=== PATIENT | female | born 1955 | race Caucasian/White ===

== ENCOUNTER → 2023-09-05 10:32 | Outpatient (REF) | payer MEDICARE, SELFPAY ==
[2023-09-05 08:55] LABS: % Basophils 0.5 % (0-2); % Eosinophils 2.2 % (0-6); % Immature Granulocytes 0.2 % (0-0.5); % Lymphocytes 26.5 % (20.5-51.1); % Monocytes 8.2 % (1.7-9.3); % Neutrophils 62.4 % (42.2-75.2); Absolute Eosinophils 0.1 10^3/uL (0-0.7); Absolute Lymphocytes 1.7 10^3/uL (1.2-3.4); Absolute Monocytes 0.5 10^3/uL (0.1-0.6); Absolute Neutrophils 3.9 10^3/uL (1.4-6.5); Hematocrit 39.7 % (37.0-47.0); Hemoglobin 13.6 g/dL (12.0-16.0); Mean Corp Hgb Conc. 34.3 g/dL (33.0-37.0); Mean Corpuscular Hgb 31.2 pg (27.0-31.0); Mean Corpuscular Volume 91.1 fL (81.0-99.0); Mean Platelet Volume 9.3 fL (7.4-10.4); Nucleated Red Blood Cells % 0 %; Platelet Count 312 10^3/uL (130-400); Red Blood Cell Count 4.36 10^6/uL (4.20-5.40); Red Cell Dist. Width 14.3 % (11.5-14.5); White Blood Cell Count 6.3 10^3/uL (4.8-10.8)
[2023-09-05 09:08] LABS: ALT (SGPT) 29 U/L (0-35); AST (SGOT) 28 U/L (14-36); Albumin 3.9 g/dl (3.5-5.0); Alkaline Phosphatase 85 U/L (38-126); Blood Urea Nitrogen 10 mg/dl (7-17); Calcium 9.1 mg/dl (8.4-10.2); Carbon Dioxide 21 mmol/L (22-30); Chloride 104 mmol/L (98-107); Glucose 99 mg/dl (70-99); Iron 88 ug/dl (37-170); Potassium 3.6 mmol/L (3.5-5.1); Sodium 137 mmol/L (135-145); Total Bilirubin 0.9 mg/dl (0.2-1.3); eGFR > 60.00
[2023-09-05 09:17] LABS: Percent Saturation 38 % (20-50); Total Iron Binding Capacity 229 ug/dl (265-497)
[2023-09-06 15:33] LABS: Beta-2-Microglobulin 2.5 mg/L (<=3.0)
[2023-09-08 13:21] LABS: Albumin 4.22 g/dL (3.75-5.01); Alpha 2 Globulin 0.81 g/dL (0.48-1.05); Free Kappa Light Chains,Quant 40.35 mg/L (3.30-19.40); Free Lambda Light Chains,Quant 20.17 mg/L (5.71-26.30); IgA 225 mg/dL (68-408); IgG 823 mg/dL (768-1632); IgM 125 mg/dL (35-263); Immunofixation Electrophoresis IFE Done; Total Protein-Electrophoresis 7.1 g/dL (6.3-8.2)
== END ==
LOC: OIDL 10:32
PROVIDERS: ATTENDING PHYSICIAN Internal Medicine Hematology & Oncology
DX: D68.52 Prothrombin gene mutation (principal)
CPT/HCPCS: 80053; 82232; 82728; 82784; 83521; 83540; 83550; 84155; 84165; 85025; 86334

== ENCOUNTER → 2023-09-18 09:58 | Outpatient (REF) | payer MEDICARE, SELFPAY ==
[2023-09-18 12:13] LABS: Protein/creatinine Ratio 0.9; Urine Protein 13 mg/dl
[2023-09-18 12:29] LABS: C-Reactive Protein < 5.00 mg/L (0.0-10.00)
[2023-09-18 12:31] LABS: Calcium 9.1 mg/dl (8.4-10.2)
[2023-09-18 12:46] LABS: Vitamin D, 25-OH*** 43.8 ng/mL (30-80)
[2023-09-18 12:50] LABS: ALT (SGPT) 67 U/L (0-35); AST (SGOT) 51 U/L (14-36); Albumin 4.4 g/dl (3.5-5.0); Alkaline Phosphatase 88 U/L (38-126); Blood Urea Nitrogen 13 mg/dl (7-17); Calcium 9.2 mg/dl (8.4-10.2); Carbon Dioxide 26 mmol/L (22-30); Chloride 99 mmol/L (98-107); Glucose 84 mg/dl (70-99); Potassium 4.2 mmol/L (3.5-5.1); Sodium 136 mmol/L (135-145); Total Bilirubin 0.9 mg/dl (0.2-1.3); Total Protein 7.1 g/dl (6.3-8.2); eGFR > 60.00
[2023-09-18 12:58] LABS: Complement C3 112 mg/dl (88-165)
[2023-09-18 13:25] LABS: % Basophils 0.5 % (0-2); % Eosinophils 1.7 % (0-6); % Immature Granulocytes 0.3 % (0-0.5); % Lymphocytes 30.4 % (20.5-51.1); % Monocytes 8.3 % (1.7-9.3); % Neutrophils 58.8 % (42.2-75.2); Absolute Eosinophils 0.1 10^3/uL (0-0.7); Absolute Lymphocytes 1.8 10^3/uL (1.2-3.4); Absolute Monocytes 0.5 10^3/uL (0.1-0.6); Absolute Neutrophils 3.5 10^3/uL (1.4-6.5); Hematocrit 39.4 % (37.0-47.0); Hemoglobin 13.2 g/dL (12.0-16.0); Mean Corp Hgb Conc. 33.5 g/dL (33.0-37.0); Mean Corpuscular Hgb 31.1 pg (27.0-31.0); Mean Corpuscular Volume 92.9 fL (81.0-99.0); Mean Platelet Volume 10.4 fL (7.4-10.4); Nucleated Red Blood Cells % 0 %; Platelet Count 256 10^3/uL (130-400); Red Blood Cell Count 4.24 10^6/uL (4.20-5.40); Red Cell Dist. Width 14.1 % (11.5-14.5); White Blood Cell Count 5.9 10^3/uL (4.8-10.8)
[2023-09-19 12:13] LABS: Intact PTH 89.8 pg/ml (13.6-85.8)
== END ==
LOC: REG 09:58
PROVIDERS: ATTENDING PHYSICIAN Family Medicine; FAMILY PHYSICIAN Internal Medicine Rheumatology
DX: E83.51 Hypocalcemia (principal); R77.0 Abnormality of albumin; Z01.818 Encounter for other preprocedural examination; E55.9 Vitamin D deficiency, unspecified
CPT/HCPCS: 36415; 80053; 82306; 82570; 83970; 84156; 85025; 86140; 86160

== ENCOUNTER 2023-09-23 06:18 | Day surgery (SDC) | payer MEDICARE, SELFPAY ==
[2023-09-23 08:19] VITALS: BMI 25.7
[2023-09-23 08:20] VITALS: BMI 25.7
[2023-09-23 08:43] VITALS: BP 134/77
[2023-09-23 11:46] VITALS: BP 123/62
[2023-09-23 12:00] VITALS: BP 133/72
[2023-09-23 12:15] VITALS: BP 138/51
== END 2023-09-23 12:30 | disposition home or self-care (01) ==
LOC: SDS 06:18
PROVIDERS: ATTENDING PHYSICIAN Internal Medicine Gastroenterology
DX: D12.0 Benign neoplasm of cecum (principal); K57.30 Diverticulosis of large intestine without perforation or abscess without bleeding; K64.0 First degree hemorrhoids; Z79.01 Long term (current) use of anticoagulants
CPT/HCPCS: 45390; 88305

== ENCOUNTER → 2023-10-20 10:45 | Outpatient (REF) | payer MEDICARE, SELFPAY ==
[2023-10-20 13:23] LABS: ALT (SGPT) 24 U/L (0-35); AST (SGOT) 25 U/L (14-36); Albumin 4.1 g/dl (3.5-5.0); Alkaline Phosphatase 83 U/L (38-126); Direct Bilirubin 0.3 mg/dl (0.0-0.4); Total Bilirubin 0.6 mg/dl (0.2-1.3); Total Protein 6.6 g/dl (6.3-8.2)
== END ==
LOC: REG 10:45
PROVIDERS: ATTENDING PHYSICIAN Internal Medicine Rheumatology; FAMILY PHYSICIAN Family Medicine
DX: R76.8 Other specified abnormal immunological findings in serum (principal); R94.5 Abnormal results of liver function studies
CPT/HCPCS: 36415; 80076; 82565

== ENCOUNTER → 2023-10-22 10:20 | Outpatient (REF) | payer MEDICARE, SELFPAY ==
[2023-10-22 12:02] LABS: Urine Protein 11 mg/dl (0-12)
[2023-10-22 12:12] LABS: 24 Hour Urine Creatinine 0.831 gm/day (0.8-1.8); 24 Hour Urine Total Volume 3000 ml
[2023-10-22 13:39] LABS: Weight Kg 65.7 KG.
[2023-10-22 13:50] LABS: Serum Creatinine 0.8 mg/dl (0.7-1.5)
[2023-10-22 13:55] LABS: Creat Clear Result 74.8 ml/min (61-166); Height Cm 157.48 CM; Surface Area 1.667
== END ==
LOC: REG 10:20
PROVIDERS: ATTENDING PHYSICIAN Internal Medicine Rheumatology; FAMILY PHYSICIAN Family Medicine
DX: R76.8 Other specified abnormal immunological findings in serum (principal); R80.9 Proteinuria, unspecified; R94.5 Abnormal results of liver function studies
CPT/HCPCS: 81050; 82570; 82575; 84156

== ENCOUNTER → 2023-11-03 13:05 | Outpatient (REF) | payer MEDICARE, SELFPAY ==
[2023-11-03 14:12] LABS: Ionized Calcium 1.21 mMOL/L (1.15-1.33)
[2023-11-03 14:58] LABS: ALT (SGPT) 26 U/L (0-35); AST (SGOT) 25 U/L (14-36); Alkaline Phosphatase 82 U/L (38-126); Blood Urea Nitrogen 15 mg/dl (7-17); Calcium 9.1 mg/dl (8.4-10.2); Carbon Dioxide 26 mmol/L (22-30); Chloride 106 mmol/L (98-107); Glucose 94 mg/dl (70-99); Potassium 3.8 mmol/L (3.5-5.1); Sodium 136 mmol/L (135-145); Total Bilirubin 0.7 mg/dl (0.2-1.3); Total Protein 6.6 g/dl (6.3-8.2); eGFR > 60.00
[2023-11-03 16:16] LABS: Vitamin D, 25-OH*** 31.3 ng/mL (30-80)
[2023-11-04 08:45] LABS: Intact PTH 70.8 pg/ml (13.6-85.8)
== END ==
LOC: REG 13:05
PROVIDERS: ATTENDING PHYSICIAN Physician Assistant; FAMILY PHYSICIAN Family Medicine; REFERRING PHYSICIAN Internal Medicine Rheumatology
DX: E34.9 Endocrine disorder, unspecified (principal); E55.9 Vitamin D deficiency, unspecified
CPT/HCPCS: 36415; 80053; 82306; 82330; 83970

== ENCOUNTER → 2023-11-05 08:48 | Outpatient (REF) | payer MEDICARE, SELFPAY ==
[2023-11-05 16:04] LABS: 24 Hour Urine Total Volume 1800 ml
[2023-11-05 16:21] LABS: 24 Hour Urine Creatinine 0.577 gm/day (0.8-1.8)
[2023-11-05 16:33] LABS: 24 Hour Urine Calcium 68.4 mg/day; Urine Calcium 3.8 mg/dl
== END ==
LOC: REG 08:48
PROVIDERS: ATTENDING PHYSICIAN Physician Assistant; FAMILY PHYSICIAN Family Medicine; REFERRING PHYSICIAN Internal Medicine Rheumatology
DX: E55.9 Vitamin D deficiency, unspecified (principal)
CPT/HCPCS: 81050; 82340; 82570

== ENCOUNTER → 2024-01-12 13:15 | Outpatient (REF) | payer MEDICARE, SELFPAY | LOC: RAD 13:15 | PROVIDERS: ATTENDING PHYSICIAN Family Medicine | DX: N32.81 Overactive bladder (principal) | CPT/HCPCS: 76770 ==

== ENCOUNTER → 2024-01-20 08:04 | Outpatient (REF) | payer MEDICARE, SELFPAY ==
[2024-01-20 08:45] LABS: % Basophils 0.2 % (0-2); % Eosinophils 0.6 % (0-6); % Immature Granulocytes 0.4 % (0-0.5); % Lymphocytes 15.6 % (20.5-51.1); % Neutrophils 75.2 % (42.2-75.2); Absolute Eosinophils 0.1 10^3/uL (0-0.7); Absolute Lymphocytes 1.5 10^3/uL (1.2-3.4); Absolute Monocytes 0.8 10^3/uL (0.1-0.6); Absolute Neutrophils 7.1 10^3/uL (1.4-6.5); Hematocrit 38.4 % (37.0-47.0); Mean Corp Hgb Conc. 33.9 g/dL (33.0-37.0); Mean Corpuscular Hgb 31.7 pg (27.0-31.0); Mean Corpuscular Volume 93.7 fL (81.0-99.0); Mean Platelet Volume 9.9 fL (7.4-10.4); Nucleated Red Blood Cells % 0 %; Platelet Count 262 10^3/uL (130-400); Red Cell Dist. Width 13.2 % (11.5-14.5); White Blood Cell Count 9.4 10^3/uL (4.8-10.8)
[2024-01-20 09:28] LABS: ALT (SGPT) 13 U/L (0-35); AST (SGOT) 19 U/L (14-36); Alkaline Phosphatase 74 U/L (38-126); Blood Urea Nitrogen 17 mg/dl (7-17); Calcium 8.9 mg/dl (8.4-10.2); Carbon Dioxide 27 mmol/L (22-30); Chloride 102 mmol/L (98-107); Glucose 81 mg/dl (70-99); Potassium 3.6 mmol/L (3.5-5.1); Sodium 137 mmol/L (135-145); Total Protein 6.4 g/dl (6.3-8.2); eGFR > 60.00
[2024-01-20 09:40] LABS: Urine Protein < 5 mg/dl
[2024-01-21 23:14] LABS: Complement C3 132 mg/dl (88-165)
== END ==
LOC: REG 08:04
PROVIDERS: ATTENDING PHYSICIAN Internal Medicine Rheumatology; FAMILY PHYSICIAN Family Medicine
DX: E55.9 Vitamin D deficiency, unspecified (principal); M15.0 Primary generalized (osteo)arthritis; M35.01 Sjogren syndrome with keratoconjunctivitis; M81.0 Age-related osteoporosis without current pathological fracture; R76.8 Other specified abnormal immunological findings in serum; Z11.59 Encounter for screening for other viral diseases; Z13.820 Encounter for screening for osteoporosis; Z79.899 Other long term (current) drug therapy
CPT/HCPCS: 36415; 80053; 82570; 84156; 85025; 86140; 86160

== ENCOUNTER 2024-01-21 09:43 | Outpatient (RCR) | payer MEDICARE, SELFPAY | END 2024-01-21 23:59 | disposition home or self-care (01) | LOC: RPT 09:43 | PROVIDERS: ATTENDING PHYSICIAN Specialist; FAMILY PHYSICIAN Family Medicine | DX: R39.81 Functional urinary incontinence (principal) | CPT/HCPCS: 97110; 97161; 97530 ==

== ENCOUNTER 2024-01-23 12:35 | Inpatient (IN) | payer MEDICARE, SELFPAY ==
[2024-01-23] VITALS (11 sets, daily range): BP systolic 92–137; BP diastolic 52–69; BMI 26.2
[2024-01-23 07:23] LABS: % Basophils 0.2 % (0-2); % Eosinophils 0.1 % (0-6); % Immature Granulocytes 0.5 % (0-0.5); % Lymphocytes 7.8 % (20.5-51.1); % Monocytes 8.7 % (1.7-9.3); % Neutrophils 82.7 % (42.2-75.2); Absolute Immature Granulocytes 0.1 10^3/uL (0-0.05); Absolute Lymphocytes 1.1 10^3/uL (1.2-3.4); Absolute Monocytes 1.2 10^3/uL (0.1-0.6); Absolute Neutrophils 11.6 10^3/uL (1.4-6.5); Hematocrit 37.3 % (37.0-47.0); Hemoglobin 12.6 g/dL (12.0-16.0); Mean Corp Hgb Conc. 33.8 g/dL (33.0-37.0); Mean Corpuscular Hgb 31.5 pg (27.0-31.0); Mean Corpuscular Volume 93.3 fL (81.0-99.0); Mean Platelet Volume 9.8 fL (7.4-10.4); Nucleated Red Blood Cells % 0 %; Platelet Count 282 10^3/uL (130-400); Red Cell Dist. Width 13.2 % (11.5-14.5); White Blood Cell Count 14.1 10^3/uL (4.8-10.8)
[2024-01-23] MEDS: DILAUDID 1 MG IV ×2 (07:34→21:16)
[2024-01-23 07:39] LABS: ALT (SGPT) 14 U/L (0-35); AST (SGOT) 21 U/L (14-36); Alkaline Phosphatase 73 U/L (38-126); Blood Urea Nitrogen 19 mg/dl (7-17); Calcium 8.8 mg/dl (8.4-10.2); Carbon Dioxide 24 mmol/L (22-30); Chloride 103 mmol/L (98-107); Glucose 124 mg/dl (70-99); Sodium 138 mmol/L (135-145); Total Bilirubin 0.8 mg/dl (0.2-1.3); Total Protein 6.7 g/dl (6.3-8.2); eGFR > 60.00
[2024-01-23 07:49] LABS: NT-proBNP 333 pg/ml; Troponin I < 0.012 ng/ml
[2024-01-23 08:11] LABS: Potassium 4.1 mmol/L (3.5-5.1)
--- NOTE | 2024-01-23 08:50 | ED.GENMED ---
History of Present Illness
General
Chief Complaint: Back Pain
Source: patient
Exam Limitations: none
Time Seen by Provider: 01/23/24 07:07
Nursing documentation reviewed up to this point in time: agreed with
History of Present Illness
History of Present Illness:
68F coming in with concerns of left sided abd chest pain starting this AM. No NVD. Mild associated SOB. no fevers.
Past History
Past History
ED Past Medical History: Arrthythmia (PVC's), Asthma, GERD, Other (Pulmonary embolism, DVT, factor V Leiden deficiency , Bowel obstructions, PNA, Hiatal hernia, GI bleeding, C. Diff, anemia) and Other (Sjogren's, osteoporosis, sleep apnea)
ED Past Surgical History: Appendectomy, Bowel resection (Multiple episodes of bowel obstruction), Cholecystectomy, Gynecological (Hysterectomy Total), Orthopedic (R shoulder surgery) and Other ([place] filter)
Social History
Tobacco: Non-smoker
Alcohol: Occasional
Drug: None
Personal:
Living: with family
Employment: Employed
Family History
Family History: Other (Diabetes, coronary disease)
Review of Systems
Review of Systems
Allergies reviewed?: Yes
All Other Systems: ROS reviewed and negative except as documented in HPI and ROS
Phy Exam
Physical Exam
Physical Exam:
EXAM:
GENERAL: Well appearing in only mild distress
HEENT: Moist oral mucosa
Pulm: Left lowerlung crackles
NEUROLOGIC: Good distal strength all extremities, no coordination deficits
PSYCHIATRIC: Appropriate mental status, normal insight and judgement
EXTREMITIES: No acute abnormalities
SKIN: normal
Course
Orders/Labs/Results
Orders:
Orders
01/23/24 05:47
EKG [Electrocardiogram (*1)] Urgent
Reason for Study: Chest Pain
01/23/24 05:48
EKG- Treatment ONCE
01/23/24 06:58
Electrocardiogram (*1) Urgent
Reason for Study: Other
Other Reason for Exam: Respiratory Distress
Cardiac Monitoring- Treatment ONCE
IV Insert/Care/Rem.- Treatment PRN
CR Chest - 2 Views Urgent
Comment:
Reason For Exam: respiratory distress
O2 Therapy [RESP] Urgent
Titrate/Wean O2 to maintain O2 sat greater than (%): 93
Special Instructions: TO MAINTAIN CONTINUOUS O2 SATS >/= 93%
Pulse Ox/cont/shift [RESP] Urgent
Quantity: 1
Special Instructions: continuous pulse ox
01/23/24 07:04
Complete Blood Count/With Diff Urgent
Comprehensive Metabolic Panel Urgent
NT-proBNP Urgent
Troponin I Urgent
01/23/24 07:26
CT Chest/abd/pelvis Angio W/wo Urgent
Comment:
Reason For Exam: abd, chest, left arm pain, SOB, arm tingling
01/23/24 07:27
HYDROmorphone [Dilaudid] 1 mg IV NOW STA
01/23/24 07:38
Heparin Pf [Heparin Lock Flush] 500 unit .ROUTE .STK-MED ONE
01/23/24 10:39
Azithromycin 500 mg/250 ml [Zithromax Infusion] 500 mg in 250 ml IV NOW
Cefepime HCl [Maxipime] 2,000 mg IV NOW STA
01/23/24 10:59
Guaifenesin/Dextromethorphan [Robitussin Dm] 5 ml PO NOW STA
01/23/24 11:35
Acetaminophen [Tylenol] 1,000 mg .ROUTE .STK-MED ONE
01/23/24 11:36
Acetaminophen [Tylenol] 1,000 mg PO NOW STA
Abnormal Lab Results
01/23/24
07:04
WBC 14.1 H 10^3/uL
(4.8-10.8)
RBC 4.00 L 10^6/uL
(4.20-5.40)
MCH 31.5 H pg
(27.0-31.0)
Abs Immat Gran (auto) 0.1 H 10^3/uL
(0-0.05)
Absolute Neuts (auto) 11.6 H 10^3/uL
(1.4-6.5)
Absolute Lymphs (auto) 1.1 L 10^3/uL
(1.2-3.4)
Absolute Monos (auto) 1.2 H 10^3/uL
(0.1-0.6)
Neutrophils % 82.7 H %
(42.2-75.2)
Lymphocytes % 7.8 L %
(20.5-51.1)
BUN 19 H mg/dl
(7-17)
Glucose 124 H mg/dl
(70-99)
01/23/24 07:04
01/23/24 07:04
Vital Signs
Initial and Last Documented VS:
Initial Vital Signs
Temp BP
98.5 F 116/60
01/23/24 06:07 01/23/24 06:07
Last Documented Vital Signs
Temp Pulse Resp BP Pulse Ox
98.5 F 93 13 92/69 95
01/23/24 06:07 01/23/24 11:00 01/23/24 10:00 01/23/24 11:00 01/23/24 11:00
MDM/Problems Addressed
MDM/Problems Addressed:
68f coming to the Er with left sided abd pain starting this AM. Radiating to left chest and left arm. No reproducible pain, but adventitious lung sounds to left lower lung. CT performed to eval for dissection due to diffuse/abrupt pain. Ct
showing likely PNA. Started on IV abx. Mildly hypoxic here, put on NC. Stable in ER. Admitted for further treatment.
*Critical Care Note
Total Time (30-74mins, 75-104mins- exclusive of procedures): Not Applicable
ED Attending Note
-
Portions of this chart may have been created with voice recognition software.� Occasional wrong word or��sound alike� substitutions may have occurred due to the inherent limitations of voice recognition software.
Discharge Plan
Departure
Patient Disposition: Admit
Date of Disposition: 01/23/24
Time of Disposition: 11:04
Admit to: Telemetry
Admit to doctor: Adal
Presentation/result/management discussed w/ accepting MD/DO: Hospitalist
Patient with high blood pressure during this ER visit?: No
Condition: Good
Covid-19: Not Applicable
Discharge Problem:
Pneumonia
Prescriptions:
No Action
melatonin 5 MG tablet
10 mg PO HS
gabapentin 600 MG tablet
600 mg PO DAILY
lubiprostone 24 MCG capsule
24 mcg PO BID 0RF
Ca-D3-mag [id number]-ktw-lexie-bor [Calcium 600-D3 Plus (mag-zinc)] 1 EACH tablet
1 ea PO BID
Prolia 60 mg/mL Syringe
60 mg SC [id number] Qty: 0
levalbuterol tartrate 1 PUFF HFA aerosol inhaler
2 puff inhalation R Q4HPRN PRN (Reason: wheeze)
gabapentin 600 mg Tablet
1,200 mg PO HS
venlafaxine 150 mg Capsule,Extended Release 24hr
150 mg PO DAILY
cevimeline 30 mg Capsule
1 cap PO TID
hydroxychloroquine 200 mg Tablet
200 mg PO DAILY
cyclosporine [Restasis] 0.05 % Dropperette
1 drp BOTH EYES BID
cholecalciferol (vitamin D3) [Vitamin D3] 25 mcg (1,000 unit) Tablet
25 mcg PO DAILY
mirabegron 50 mg Tablet Extended Release 24 Hr
50 mg PO DAILY
Dupixent Syringe 300 mg/2 mL Syringe
300 mg SC Q2W
clonazepam 1 MG tablet
2 mg PO HS
bisacodyl 5 mg Tablet
5 mg PO HS
methenamine hippurate 1 GRAM tablet
1 g PO DAILY
pantoprazole 40 MG tablet,delayed release (DR/EC)
40 mg PO BID
famotidine 40 mg Tablet
40 mg PO BID
Xarelto 10 mg Tablet
10 mg PO DAILY
Referrals:
Wilma Shirley DO [Family Provider] -
Interventions
Interventions:
*Risk Screen - Suicide Last Done: 01/23/24 07:42
*Neglect/Abuse Screening Last Done: 01/23/24 07:42
ED- Fall Risk Assessment Last Done: 01/23/24 07:42
*ED COVID-19 Vaccine History Last Done: 01/23/24 07:41
ED-Musculoskeletal Assessment Last Done: 01/23/24 07:45
Discharge Date and Time
Print Language: SAMI
--- NOTE | 2024-01-23 10:33 | EDRN ---
Pt states it is ' normal ' for her to have loose/watery stools
[2024-01-23] MEDS: MAXIPIME 2000 MG IV ×2 (10:51→20:20)
[2024-01-23] MEDS: ZITHROMAX INFUSION 250 IV (10:52)
[2024-01-23] MEDS: ROBITUSSIN DM 5 ML PO (11:03)
[2024-01-23] MEDS: TYLENOL 1000 MG PO (11:36)
--- NOTE | 2024-01-23 11:48 | HPS.HSE ---
Family Physician
-
Family Physician: Wilma Shirley
Chief Complaint
-
Back pain, cough
History of Present Illness
patient is 68 years old with history of seizure, GI bleeding, hiatal hernia, GERD, small bowel obstruction, mitral valve prolapse, sleep apnea, pulm embolism/DVT status post [place] filter, factor V Leyden deficiency, PVCs, hypertension, sleep
apnea, asthma, restless leg syndrome, Sjogren's disease, osteopororosis who came to the ER with back pain, coughing.
patient was hypoxic on room air.
Initial chest x ray shows left lower lobe pneumonia, confirmed with CT chest/abdomen/pelvis.
started on Cefepime and xithromax.
Patient still with back pain, chest pain and shortness of breath.
Medical History
Past Medical History
Past Medical History: Reports Other (seizure on Wellbutrin 12 years ago, GI bleeding, hiatal hernia, GERD, small bowel obstruction, mitral valve prolapse, sleep apnea, pulm embolism/DVT status post [place] filter, factor V Leyden deficiency,
PVCs, hypertension, sleep apnea, asthma, restless leg syndrome, Sjogren's disease, osteoporo)
Past Surgical History: Reports Other ( Right rotator cuff shoulder surgery, hysterectomy, liposuction, or in general surgery, right knee surgery, elbow surgery, appendectomy, left rotator cuff repair, cholecystectomy,)
Social History
Tobacco: Non-smoker
Alcohol: Occasional
Drug: None
Family History
Family History: Other (Father with hyperlipidemia, hypertension, prostate cancer Mother with hyperlipidemia, hypertension, diabetes, breast cancer, uterine cancer,)
Allergies / Home Medications
Allergies reflects when Allergies were last updated in [facility].
Home Medications with original date entered in [facility]
Allergy/Medication List:
Allergies
Allergy/AdvReac Type Severity Reaction Status Date / Time
bupropion Allergy SEIZURE Verified 07/10/23 11:48
bupropion HCl Allergy Seizure Verified 07/10/23 11:48
[From Wellbutrin]
carbamazepine Allergy TOXICITY Verified 07/18/23 13:17
cephalexin Allergy Rash Verified 07/10/23 11:48
ciprofloxacin Allergy Rash Verified 07/10/23 11:48
codeine [Codeine] Allergy Rash Verified 07/10/23 11:48
droperidol Allergy DYSTONIA Verified 07/10/23 11:48
iron [From Venofer] Allergy Unknown Verified 07/10/23 11:48
iron sucrose complex Allergy Anaphylaxis Verified 07/10/23 11:48
[From Venofer]
meloxicam Allergy Rash Verified 07/10/23 12:20
metoclopramide Allergy Rash Verified 07/18/23 13:17
ondansetron HCl [From Zofran] Allergy Rash Verified 07/18/23 13:17
prochlorperazine Allergy Rash Verified 07/18/23 13:17
promethazine Allergy Rash Verified 07/18/23 13:17
sulfamethoxazole Allergy Itching, Verified 07/10/23 11:48
[From Bactrim] rash
tetracycline Allergy Rash Verified 07/10/23 11:48
Tetracyclines Allergy Unknown Verified 07/10/23 11:48
trimethoprim [From Bactrim] Allergy Itching, Verified 07/10/23 11:48
rash
vancomycin [Vancomycin] Allergy TEMP Verified 07/10/23 11:48
103.6F,
SEVERE
RIGORS,
TACHYCARDIA
Home Medications
melatonin 5 mg tablet 10 mg PO HS Sleep 10/11/15
gabapentin 600 mg tablet 600 mg PO BID Pain 06/26/16
lubiprostone 24 mcg capsule 24 mcg PO BID 09/17/17
Ca 600 mg-D3 20 mcg-mag oxide 50 kx-Ml-bmrhlr-manganese-boron tablet (Calcium 600-D3 Plus (mag-zinc)) 1 ea PO BID Supplement 08/06/19
Prolia 1 dose INJ .[id number] osteoporosis 11/18/19
levalbuterol tartrate 45 mcg/actuation aerosol inhaler 1 puff inhalation R Q4HPRN PRN wheeze 11/18/19
Dulcolax: 2 tab PO HS Constipation 12/08/19
cevimeline 30 mg capsule 1 cap PO TID 01/13/23
cholecalciferol (vitamin D3) 25 mcg (1,000 unit) tablet (Vitamin D3) 25 mcg PO DAILY 01/13/23
clonazepam 1 mg tablet 2 mg PO HS 01/13/23
cyclosporine 0.05 % eye drops in a dropperette (Restasis) 1 drp ophthalmic (eye) DAILY 01/13/23
dupilumab 300 mg/2 mL subcutaneous syringe (Dupixent) 300 mg SC Q2W 01/13/23
gabapentin 600 mg tablet 1,200 mg PO HS 01/13/23
hydroxychloroquine 200 mg tablet 200 mg PO DAILY 01/13/23
mirabegron 50 mg tablet,extended release 24 hr 50 mg PO DAILY 01/13/23
rivaroxaban 20 mg tablet (Xarelto) 10 mg PO Daily DVT prohphylaxis 01/13/23
venlafaxine 150 mg capsule,extended release 24 hr 150 mg PO DAILY 01/13/23
acetaminophen 500 mg tablet 1,000 mg PO Q6H PRN pain 07/10/23
bisacodyl 5 mg tablet 5 mg PO HS 07/10/23
clonazepam 1 mg tablet 1 mg PO DAILY 07/10/23
famotidine 40 mg tablet 40 mg PO BID 07/10/23
methenamine hippurate 1 gram tablet 1 g PO DAILY 07/10/23
pantoprazole 40 mg tablet,delayed release 40 mg PO BID 07/10/23
Review of Systems
-
A 12 point ROS was completed and negative except as noted: Yes
Constitutional: Reports Fatigue; Denies Fever, Weight Gain, Weight Loss or Sleep Disturbance
EENT: Denies Tearing, Sore Throat, Mouth Pain, Mouth Swelling or Runny Nose
Respiratory: Reports Cough and Trouble Breathing; Denies Hemoptysis
Cardiac: Reports Chest Pain; Denies Diaphoresis, Palpitations or Syncope
Abdomen/GI: Denies Abdominal Pain, Nausea, Vomiting, Diarrhea, Constipated, Bloody Stools or Black Stools
: Denies Dysuria, Frequency, Flank Pain, Incontinence, Difficulty Voiding, Urgency, Bleeding or Dark Urine
Musculoskeletal: Denies Joint Pain, Joint Swelling, Muscle Pain, Muscle Stiffness or Edema
Skin: Denies Itching or Rash
Neurological: Reports Weakness; Denies Dizzy, Headache or Numbness
Endocrine: Denies Polyuria, Polydipsia or Temp Intolerance
Hematologic/Lymphatic: Denies Bleeding, Swollen Glands or Bruising
Psych: Reports Calm; Denies Depression, Anxiety or Panic Disorder
Physical Exam
Vital Signs
Vital Signs
Temp Pulse Resp BP Pulse Ox
98.5 F 93 13 92/69 95
01/23/24 06:07 01/23/24 11:00 01/23/24 10:00 01/23/24 11:00 01/23/24 11:00
Physical Exam
General: Well Developed, Well Nourished, No Apparent Distress, Comfortable and Good Appetite; No Pain, Chills or Sweats
HEENT: NormoCephalic, Moist mucous membranes, Atraumatic, Good Dentition, PERRLA, Nose Appears Normal and Ears Appear Normal
Respiratory: Rales, Rhonchi and Crackles
Cardiac: S1/S2 and Regular Rhythm
Breast: Deferred by me
GI: Soft, Non Tender, Non Distended and Normal Bowel Sounds
Genito-urinary: Deferred by me
Musculoskeletal: No Clubbing, No Cyanosis and No Edema
Skin: Warm; No Rash, Jaundice, Ulcers, Lesions or Decubitus Ulcers
Neuro: Awake, Alert, Oriented, AO x 3, No Motor Deficits, Nonfocal/grossly intact and Cranial Nerves Intact
Hematologic/Lymphatic: No Lymphadenopathy
Psych: Calm
Laboratory Results
-
01/23/24 07:04
01/23/24 07:04
Laboratory Results
Total Bilirubin 0.8 mg/dl (0.2-1.3) 01/23/24 07:04
AST 21 U/L (14-36) 01/23/24 07:04
ALT 14 U/L (0-35) 01/23/24 07:04
Alkaline Phosphatase 73 U/L (38-126) 01/23/24 07:04
Troponin I < 0.012 ng/ml 01/23/24 07:04
Data Reviewed
-
Diagnostic Radiology: Report Reviewed by me
CT Scan: Report Reviewed by me
Medical Tests (Nuc Med, Echo, EKG etc): Report Reviewed by me
Lab Data: Labs Reviewed by me
Old Records: Reviewed
Impression/Plan
-
IMPRESSION:
patient is 68 years old with history of seizure, GI bleeding, hiatal hernia, GERD, small bowel obstruction, mitral valve prolapse, sleep apnea, pulm embolism/DVT status post Wilman filter, factor V Leyden deficiency, PVCs, hypertension, sleep
apnea, asthma, restless leg syndrome, Sjogren's disease, osteopororosis who came to the ER with back pain, coughing found to have pneumonia.
PLAN:
- Sever Sepsis with Acute organ dysfunction
patient meets sepsis criteria with leukocytosis and tachycardia
secondary to pneumonia
strated on Cefepime and zithromax, will continue
- Acute hypoxic respiratory faliure seconday to pneumonia
cont oxygen
wean as tolerated
Asthma
-Continue inhalers
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
-Continue Xarelto
Restless leg syndrome
-Continue gabapentin
Sjogren's disease
-Continue hydroxychloroquine
Anxiety/depression
-Continue clonazepam
-Continue venlafaxine
Full code
DVT prophylaxis�Xarelto
Regular diet
[2024-01-23] MEDS: LIDOCAINE 4% PATCH 1 PATCH TOPICAL (13:37)
--- NOTE | 2024-01-23 14:56 | PTCARENOTE ---
Patient admitted from ER into room 413-02. Vital signs stable. Oriented to room, use of call dior and television and bed controls. Reviewed plan of care with patient. Patient verbalizes understanding of all teaching and denies questions at this
time. IV fluids started as per order. Patient denies pain at this time.
[2024-01-23] MEDS: NSS 1000 IV (15:12)
[2024-01-23] MEDS: NON-FORMULARY ITEM 1 CAP PO ×2 (17:09→21:16)
[2024-01-23] MEDS: DUONEB 3 ML INH (19:59)
[2024-01-23] MEDS: STERILE WATER FOR INJECTION 10 ML IV (20:19)
[2024-01-23] MEDS: OSCAL 500 + D 500 MG PO (20:20)
[2024-01-23] MEDS: PEPCID 40 MG PO (20:20)
[2024-01-23] MEDS: RESTASIS 0.05% OPHTHALMIC EMULSION 1 DROPS BOTH EYES (20:20)
[2024-01-23] MEDS: PROTONIX 40 MG PO (20:21)
[2024-01-23] MEDS: MELATONIN 10 MG PO (21:16)
[2024-01-23] MEDS: DULCOLAX 5 MG PO (21:16)
[2024-01-23] MEDS: KLONOPIN 2 MG PO (21:16)
[2024-01-23] MEDS: NEURONTIN 1200 MG PO (21:16)
[2024-01-24] MEDS: DILAUDID 1 MG IV ×5 (00:28→21:06)
[2024-01-24] MEDS: NSS 1000 IV (02:36)
[2024-01-24] MEDS: TYLENOL 650 MG PO ×2 (03:42→20:06)
[2024-01-24 03:46] VITALS: BP 124/59
[2024-01-24 07:13] LABS: Blood Urea Nitrogen 13 mg/dl (7-17); Calcium 8.1 mg/dl (8.4-10.2); Carbon Dioxide 26 mmol/L (22-30); Chloride 109 mmol/L (98-107); Estimated Creatinine Clearance 52 ml/min; Glucose 93 mg/dl (70-99); Magnesium 1.9 mg/dl (1.6-2.3); Sodium 140 mmol/L (135-145); eGFR > 60.00
[2024-01-24 07:16] VITALS: BP 109/54
[2024-01-24 07:17] LABS: Hematocrit 32.3 % (37.0-47.0); Hemoglobin 10.7 g/dL (12.0-16.0); Mean Corp Hgb Conc. 33.1 g/dL (33.0-37.0); Mean Corpuscular Hgb 31.5 pg (27.0-31.0); Mean Platelet Volume 9.6 fL (7.4-10.4); Platelet Count 236 10^3/uL (130-400); Red Cell Dist. Width 13.7 % (11.5-14.5); White Blood Cell Count 10.1 10^3/uL (4.8-10.8)
[2024-01-24 07:25] LABS: Troponin I < 0.012 ng/ml
[2024-01-24] MEDS: LIDOCAINE 4% PATCH 1 PATCH TOPICAL (08:15)
[2024-01-24] MEDS: ZITHROMAX INFUSION 250 IV (08:15)
[2024-01-24] MEDS: XARELTO 10 MG PO (08:15)
[2024-01-24] MEDS: NEURONTIN 600 MG PO (08:16)
[2024-01-24] MEDS: PEPCID 40 MG PO ×2 (08:16→20:06)
[2024-01-24] MEDS: OSCAL 500 + D 500 MG PO ×2 (08:16→20:06)
[2024-01-24] MEDS: PLAQUENIL 200 MG PO (08:16)
[2024-01-24] MEDS: VITAMIN D3 (cholecalciferol) 25 MCG PO (08:16)
[2024-01-24] MEDS: MAXIPIME 2000 MG IV ×2 (08:16→20:05)
[2024-01-24] MEDS: PROTONIX 40 MG PO ×2 (08:16→20:05)
[2024-01-24] MEDS: EFFEXOR XR 150 MG PO (08:16)
[2024-01-24] MEDS: RESTASIS 0.05% OPHTHALMIC EMULSION 1 DROPS BOTH EYES ×2 (08:16→20:05)
[2024-01-24] MEDS: NON-FORMULARY ITEM 1 CAP PO ×3 (08:17→21:11)
[2024-01-24] MEDS: STERILE WATER FOR INJECTION 10 ML IV ×2 (08:17→20:05)
[2024-01-24] MEDS: FLUSH (NSS) 2 FLUSH IV ×2 (08:18→17:47)
[2024-01-24 11:33] VITALS: BP 108/54
[2024-01-24] MEDS: ROBITUSSIN 200 MG PO (11:47)
[2024-01-24] MEDS: FLUSH (NSS) 1 FLUSH IV (12:21)
--- NOTE | 2024-01-24 13:20 | W.PN.HOSP.TC ---
Today's Communication/Plan
-
Continue broad-spectrum antibiotic
Check urinary antigen
Pulmonary input
Sputum sample
Assessment / Plan
Assessment / Plan
IMPRESSION:
patient is 68 years old with history of seizure, GI bleeding, hiatal hernia, GERD, small bowel obstruction, mitral valve prolapse, sleep apnea, pulm embolism/DVT status post [place] filter, factor V Leyden deficiency, PVCs, hypertension, sleep
apnea, asthma, restless leg syndrome, Sjogren's disease, osteopororosis who came to the ER with back pain, coughing found to have pneumonia.
PLAN:
Sever Sepsis with Acute organ dysfunction
patient meets sepsis criteria with leukocytosis and tachycardia
secondary to pneumonia ?necrotizing
Pleuritic pain due to pneumonia
started on Cefepime and Zithromax, will continue.-Allergic to multiple medications including antibiotics. Monitor closely.
check MRSA
reaction to vancomycin
CT chest Irregular airspace consolidation within the LEFT lower lobe. Decreased enhancement within the lateral portion of this area of consolidation suspicious for pneumonia with possible necrosis. Small associated loculated pleural effusion. No
evidence for aortic dissection or acute aortic pathology. No evidence for pulmonary embolism.Patulous esophagus with small to moderate hiatal hernia.
Check strep pneum and legionella urinary antigen
sputum sample
Will pulm for input
Acute hypoxic respiratory faliure secondary to pneumonia
cont oxygen
wean as tolerated
seen on room air
Asthma
-Continue inhalers
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
-Continue Xarelto
Restless leg syndrome status post spinal stimulator
-Continue gabapentin
Sjogren's disease
-Continue hydroxychloroquine
Anxiety/depression
-Continue clonazepam
-Continue venlafaxine
Full code
DVT prophylaxis�Xarelto
Anticipated Discharge: > 48 hours
Subjective/Interval History
-
Date of Service: January 24, 2024
states of left sided chest pain
states of dry cough
no sick contact
Objective Data
-
Labs:
Laboratory Results
01/24/24
06:44
WBC 10.1
Hgb 10.7 L
Hct 32.3 L
Plt Count 236
Sodium 140
Potassium 4.0
Chloride 109 H
Carbon Dioxide 26
BUN 13
Creatinine 0.8
Glucose 93
Calcium 8.1 L
Vital Signs:
Vital Signs
Temp Pulse Resp BP Pulse Ox
99.4 F 90 18 108/54 96
01/24/24 11:33 01/24/24 11:33 01/24/24 11:33 01/24/24 11:33 01/24/24 11:33
I&O
01/23/24 01/24/24 01/25/24
06:59 06:59 06:59
Intake Total 1440 / 1440
Balance 1440 / 1440
Physical Exam
-
General: Well Developed, Well Nourished and No Apparent Distress
HEENT: Normocephalic, Atraumatic and Moist Mucous Membranes
Respiratory: Rhonchi (L>r)
Cardiac: Regular Rhythm and S1/S2
GI: Soft, Nontender, Nondistended and Normal Bowel Sounds
Musculoskeletal: No Edema and Other (rt arm in sling)
Skin: Warm
Neuro: Awake and AO x 3
Psych: Calm
Data Reviewed
-
Total Time Spent with Patient (in minutes): 55
--- NOTE | 2024-01-24 14:22 | CON.PUL ---
Consultation
Consultation Request
Date/Time Consultation Requested: 01/24/2024
Date/Time Consultation Performed: 01/24/2024
Requesting Provider: Dr. Olivares
Performing Provider: Dr. Gabe Landeros
Reason for Consultation: Pneumonia/acute respiratory insufficiency
Medical History
-
History of Present Illness:
68-year-old male with past medical history noted including GERD, hiatal hernia, prior GI bleed, prior small bowel obstruction, obstructive sleep apnea, prior pulmonary embolism with history of factor V Leiden came to the hospital complaining of back
pain, coughing and found to have infiltrates on chest x-ray. He was found to be hypoxemic as well.
Past Medical History
Past Medical History: Other (See assessment and plan section)
Social History
Tobacco: Non-smoker
Alcohol: Occasional
Drug: None
Family History
Family History: Other (Father with hyperlipidemia, hypertension, prostate cancer Mother with hyperlipidemia, hypertension, diabetes, breast cancer, uterine cancer,)
Allergies / Home Medications
Allergies
Allergy/AdvReac Type Severity Reaction Status Date / Time
bupropion Allergy SEIZURE Verified 09/23/23 08:24
bupropion HCl Allergy Seizure Verified 09/23/23 08:24
[From Wellbutrin]
carbamazepine Allergy TOXICITY Verified 09/23/23 08:24
cephalexin Allergy Rash Verified 09/23/23 08:24
ciprofloxacin Allergy Rash Verified 09/23/23 08:24
codeine [Codeine] Allergy Rash Verified 09/23/23 08:24
droperidol Allergy DYSTONIA Verified 09/23/23 08:24
iron [From Venofer] Allergy Anaphylaxis Verified 09/23/23 08:24
iron sucrose complex Allergy Anaphylaxis Verified 09/23/23 08:24
[From Venofer]
meloxicam Allergy Rash Verified 09/23/23 08:24
metaxalone Allergy Nausea / Verified 09/23/23 08:24
Vomiting
metoclopramide Allergy Rash Verified 09/23/23 08:24
ondansetron HCl [From Zofran] Allergy Rash Verified 09/23/23 08:24
prochlorperazine Allergy Rash Verified 09/23/23 08:24
promethazine Allergy Rash Verified 09/23/23 08:24
sulfamethoxazole Allergy Itching, Verified 09/23/23 08:24
[From Bactrim] rash
tetracycline Allergy Rash Verified 09/23/23 08:24
Tetracyclines Allergy Unknown Verified 09/23/23 08:24
trimethoprim [From Bactrim] Allergy Itching, Verified 09/23/23 08:24
rash
vancomycin [Vancomycin] Allergy TEMP Verified 09/23/23 08:24
103.6F,
SEVERE
RIGORS,
TACHYCARDIA
Home Medications
�Medication �Instructions �Recorded �Confirmed �Last Taken �Type
melatonin 5 mg tablet 10 mg PO HS Sleep 10/11/15 01/23/24 01/22/24 History
gabapentin 600 mg tablet 600 mg PO DAILY Pain 06/26/16 01/23/24 01/23/24 History
lubiprostone 24 mcg capsule 24 mcg PO BID 09/17/17 01/23/24 01/23/24 Rx
Ca 600 mg-D3 20 mcg-mag oxide 50 1 ea PO BID Supplement 08/06/19 01/23/24 01/23/24 History
np-Yb-ewutiz-manganese-boron
tablet (Calcium 600-D3 Plus
(mag-zinc))
denosumab 60 mg/mL subcutaneous 60 mg SC [id number] osteoporosis ##0 11/18/19 01/23/24 4 Months Ago History
syringe (Prolia) ~05/25/23
levalbuterol tartrate 45 2 puff inhalation R Q4HPRN PRN 11/18/19 01/23/24 2 Months Ago History
mcg/actuation aerosol inhaler wheeze ~07/25/23
cevimeline 30 mg capsule 1 cap PO TID XEROSTOMA 01/13/23 01/23/24 01/23/24 History
cholecalciferol (vitamin D3) 25 25 mcg PO DAILY Supplement 01/13/23 01/23/24 01/23/24 History
mcg (1,000 unit) tablet (Vitamin
D3)
clonazepam 1 mg tablet 2 mg PO HS Neurological Condition 01/13/23 01/23/24 01/22/24 History
cyclosporine 0.05 % eye drops in a 1 drp BOTH EYES BID Eye Condition 01/13/23 01/23/24 01/23/24 History
dropperette (Restasis)
dupilumab 300 mg/2 mL subcutaneous 300 mg SC Q2W Skin Issues 01/13/23 01/23/24 09/17/23 History
syringe (Dupixent)
gabapentin 600 mg tablet 1,200 mg PO HS Pain 01/13/23 01/23/24 01/22/24 History
hydroxychloroquine 200 mg tablet 200 mg PO DAILY Autoimmune Disorder 01/13/23 01/23/24 01/23/24 History
mirabegron 50 mg tablet,extended 50 mg PO DAILY Urinary Issue 01/13/23 01/23/24 01/23/24 History
release 24 hr
venlafaxine 150 mg 150 mg PO DAILY Mental 01/13/23 01/23/24 01/23/24 History
capsule,extended release 24 hr Health/Anxiety
bisacodyl 5 mg tablet 5 mg PO HS Constipation 07/10/23 01/23/24 01/22/24 History
famotidine 40 mg tablet 40 mg PO BID Gastrointestinal Issue 07/10/23 01/23/24 01/23/24 History
methenamine hippurate 1 gram tablet 1 g PO DAILY Infection 07/10/23 01/23/24 01/23/24 History
pantoprazole 40 mg tablet,delayed 40 mg PO BID Gastrointestinal Issue 07/10/23 01/23/24 01/23/24 History
release
rivaroxaban 10 mg tablet (Xarelto) 10 mg PO DAILY Blood Clot 09/23/23 01/23/24 01/23/24 History
Prevention/Tx
Review of Systems
-
History Source: Patient
All other systems: Negative unless noted
Vitals / Labs / Diagnostic Testing
Vital Signs
Temp Pulse Resp BP Pulse Ox
99.4 F 90 18 108/54 96
01/24/24 11:33 01/24/24 11:33 01/24/24 11:33 01/24/24 11:33 01/24/24 11:33
Lab Data
01/24/24 06:44
01/24/24 06:44
Diagnostic Testing:
Physical Exam
-
HEENT: Normocephalic
Cardiovascular: S1/S2
Respiratory: Non-Labored Respirations and Other (Decreased breath sounds in the left)
GI: Soft and Non Distended
Neurology: Awake, Alert, Oriented and AO x 3
Skin: Warm
General: Respiratory Distress (n)
Assessment
-
Acute respiratory insufficiency -requiring oxygen supplementation
CT chest: Show left lower lobe consolidation suggestive of pneumonia. Possible necrosis. Small loculated pleural effusion.
Moderate hiatal hernia/significant acid reflux symptoms for
Leukocytosis
Conditions present prior admission:
History of asthma
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
Sjogren syndrome
Anxiety/depression
GERD
Hiatal hernia
restless leg syndrome status post spinal stimulator.
Right subclavian PowerPort, difficult IV access per patient./
Assessment and plan:
Left lower lobe pneumonia with associated small loculated pleural effusion.Possible necrotizing component.
Patient does report significant acid reflux with her hiatal hernia-could be aspiration pneumonia complicated
-
I agree with antibiotics and assess response, depending on response may need to consider adding anaerobic coverage.
MRSA screen pending
Legionella and Streptococcus antibodies pending.
Sputum culture if able
Incentive spirometry
Acapella device
Continue oxygen supplementation, wean off as able.
Rule out aspiration, speech evaluation.
Head of the bed elevation
Antiacid reflux measures.
-
Will need radiographic follow-up in the outpatient setting.
Repeat chest x-ray depending on clinical situation to assess progression of pleural effusion.
-
History of asthma, not bronchospastic to continue inhalers.
-
DVT prophylaxis on anticoagulation.
[2024-01-24 15:06] VITALS: BP 117/61
--- NOTE | 2024-01-24 16:16 | CHAP ---
Susannah was pleasant - she asked for a prayer, which was provided, along with emotional support.
--- NOTE | 2024-01-24 16:42 | PTOTSP ---
Speech Therapy
Presentation: Patient's speech and language appeared to be WNL during informal conversations with ROD MILL OPERATOR. Patient denied any communicative deficits.
Swallowing function: Patient was observed with several bites of cracker and sips of thin liquids in which patient appeared to tolerate as she did not exhibit any overt clinical s/sx of aspiration or difficulty with mastication/ manipulation. Patient
denied any dysphagia complaints.
Recommendations:
1) Continuation of current diet (regular consistency solids and thin liquids)
2) Aspiration precautions
3) Medications as tolerated
Plan: ROD MILL OPERATOR will sign off at this time as patient appears to be at baseline.
[2024-01-24 19:55] VITALS: BP 120/58
[2024-01-24] MEDS: NEURONTIN 1200 MG PO (21:06)
[2024-01-24] MEDS: DULCOLAX 5 MG PO (21:06)
[2024-01-24] MEDS: KLONOPIN 2 MG PO (21:06)
[2024-01-24] MEDS: MIRALAX 17 GRAMS PO (21:06)
[2024-01-24] MEDS: MELATONIN 10 MG PO (21:06)
[2024-01-24 23:47] VITALS: BP 115/58
[2024-01-25] VITALS (7 sets, daily range): BP systolic 113–144; BP diastolic 56–71
[2024-01-25] MEDS: DILAUDID 1 MG IV ×5 (03:54→23:59)
[2024-01-25] MEDS: NEURONTIN 600 MG PO (07:59)
[2024-01-25] MEDS: PLAQUENIL 200 MG PO (07:59)
[2024-01-25] MEDS: PEPCID 40 MG PO ×2 (07:59→20:19)
[2024-01-25] MEDS: PROTONIX 40 MG PO ×2 (07:59→20:19)
[2024-01-25] MEDS: EFFEXOR XR 150 MG PO (07:59)
[2024-01-25] MEDS: XARELTO 10 MG PO (08:00)
[2024-01-25] MEDS: VITAMIN D3 (cholecalciferol) 25 MCG PO (08:00)
[2024-01-25] MEDS: OSCAL 500 + D 500 MG PO ×2 (08:00→20:19)
[2024-01-25] MEDS: STERILE WATER FOR INJECTION 10 ML IV ×2 (08:00→20:20)
[2024-01-25] MEDS: RESTASIS 0.05% OPHTHALMIC EMULSION 1 DROPS BOTH EYES ×2 (08:00→20:19)
[2024-01-25] MEDS: MAXIPIME 2000 MG IV ×2 (08:01→20:19)
[2024-01-25] MEDS: LIDOCAINE 4% PATCH 1 PATCH TOPICAL (08:01)
[2024-01-25] MEDS: NON-FORMULARY ITEM 1 CAP PO ×3 (08:02→21:19)
[2024-01-25] MEDS: ZITHROMAX INFUSION 250 IV (08:15)
[2024-01-25 08:35] LABS: % Basophils 0.5 % (0-2); % Eosinophils 3.1 % (0-6); % Immature Granulocytes 0.7 % (0-0.5); % Lymphocytes 16.4 % (20.5-51.1); % Monocytes 9.1 % (1.7-9.3); % Neutrophils 70.2 % (42.2-75.2); Absolute Basophils 0.1 10^3/uL (0-0.2); Absolute Eosinophils 0.3 10^3/uL (0-0.7); Absolute Immature Granulocytes 0.1 10^3/uL (0-0.05); Absolute Lymphocytes 1.8 10^3/uL (1.2-3.4); Absolute Neutrophils 7.6 10^3/uL (1.4-6.5); Hematocrit 35.1 % (37.0-47.0); Hemoglobin 11.4 g/dL (12.0-16.0); Mean Corp Hgb Conc. 32.5 g/dL (33.0-37.0); Mean Corpuscular Hgb 30.7 pg (27.0-31.0); Mean Corpuscular Volume 94.6 fL (81.0-99.0); Mean Platelet Volume 9.5 fL (7.4-10.4); Nucleated Red Blood Cells % 0 %; Platelet Count 299 10^3/uL (130-400); Red Blood Cell Count 3.71 10^6/uL (4.20-5.40); Red Cell Dist. Width 13.7 % (11.5-14.5); White Blood Cell Count 10.8 10^3/uL (4.8-10.8)
[2024-01-25 09:03] LABS: Blood Urea Nitrogen 13 mg/dl (7-17); Calcium 8.4 mg/dl (8.4-10.2); Carbon Dioxide 23 mmol/L (22-30); Chloride 107 mmol/L (98-107); Estimated Creatinine Clearance 52 ml/min; Glucose 91 mg/dl (70-99); Potassium 4.2 mmol/L (3.5-5.1); Sodium 139 mmol/L (135-145); eGFR > 60.00
--- NOTE | 2024-01-25 10:33 | W.PN.HOSP.TC ---
Today's Communication/Plan
-
cont broad spectrum abx-add anaerobes
Repeat CXR in am
pulm recs
trend cbc
Assessment / Plan
Assessment / Plan
IMPRESSION:
patient is 68 years old with history of seizure, GI bleeding, hiatal hernia, GERD, small bowel obstruction, mitral valve prolapse, sleep apnea, pulm embolism/DVT status post [place] filter, factor V Leyden deficiency, PVCs, hypertension, sleep
apnea, asthma, restless leg syndrome, Sjogren's disease, osteopororosis who came to the ER with back pain, coughing found to have pneumonia.
PLAN:
Sever Sepsis with Acute organ dysfunction likely 2/2 small loculated pleural effusion secondary to pneumonia ?necrotizing -poa
Pleuritic pain due to pneumonia
started on Cefepime and Zithromax, will continue.-Allergic to multiple medications including antibiotics. Monitor closely. Added anaerobes coverage flagyl.
wbc downtrended.
check MRSA pending
reaction to vancomycin
CT chest Irregular airspace consolidation within the LEFT lower lobe. Decreased enhancement within the lateral portion of this area of consolidation suspicious for pneumonia with possible necrosis. Small associated loculated pleural effusion. No
evidence for aortic dissection or acute aortic pathology. No evidence for pulmonary embolism.Patulous esophagus with small to moderate hiatal hernia.
strep pneum and legionella urinary antigen-Negative
sputum sample
Passed shallow eval. Spiked mild temp overnight.
Repeat CXR in am
Pulm following
Acute hypoxic respiratory insufficiency secondary to pneumonia
cont oxygen
wean as tolerated
seen on room air
Asthma
-Continue inhalers
History of factor V Leyden deficiency/ History of DVT/PE status post [place] filter
-Continue Xarelto
Restless leg syndrome status post spinal stimulator
-Continue gabapentin
Sjogren's disease
-Continue hydroxychloroquine
Anxiety/depression
-Continue clonazepam
-Continue venlafaxine
Full code
DVT prophylaxis�Xarelto
Anticipated Discharge: > 48 hours
Subjective/Interval History
-
Date of Service: January 25, 2024
remains with severe dry cough
feeling sob with exertion
Objective Data
-
Labs:
Laboratory Results
01/25/24
07:37
WBC 10.8
Hgb 11.4 L
Hct 35.1 L
Plt Count 299 D
Sodium 139
Potassium 4.2
Chloride 107
Carbon Dioxide 23
BUN 13
Creatinine 0.8
Glucose 91
Calcium 8.4
Vital Signs:
Vital Signs
Temp Pulse Resp BP Pulse Ox
98.9 F 93 16 139/65 93
01/25/24 07:18 01/25/24 07:18 01/25/24 07:18 01/25/24 07:18 01/25/24 07:18
I&O
01/24/24 01/25/24 01/26/24
06:59 06:59 06:59
Intake Total 1440 / 1440 480 / 480
Balance 1440 / 1440 480 / 480
Physical Exam
-
General: Well Developed, Well Nourished and No Apparent Distress
HEENT: Normocephalic, Atraumatic, Moist Mucous Membranes and Other (chest port noted )
Respiratory: Rhonchi (L>r)
Cardiac: Regular Rhythm and S1/S2
GI: Soft, Nontender, Nondistended and Normal Bowel Sounds
Musculoskeletal: No Edema and Other (rt arm in sling)
Skin: Warm
Neuro: Awake and AO x 3
Psych: Calm
Data Reviewed
-
Total Time Spent with Patient (in minutes): 55
[2024-01-25] MEDS: FLAGYL 500 MG 100 IV ×2 (12:12→20:19)
[2024-01-25] MEDS: TESSALON PERLES 200 MG PO (12:21)
--- NOTE | 2024-01-25 12:43 | CM ---
met with patient at bedside.patient lives with her in house with 3 jaswant,her bed and bath is on the second level..patient has a stairglide to second floor.she ambulates I,is I with her adl.sg arguelles is her pcp and she uses [facility] [address]
in [place].
past medical history:gib,hh,gerd,sbo,mvp,asthma,dvt/pe with [place]ill[place] filter
patient adm with sepsis due to pleural effusion,on iv abx,nebs,xarelto.pulm following.patient has declined a vn.plan home with no needs.
--- NOTE | 2024-01-25 13:36 | W.PN.PUL3 ---
Addendum entered and electronically signed by Gabe Hensley MD 01/25/24 14:19:
Of note, pt is on Dupixent for atopic dermatitis not for a pulmonary indication
Has ENA and wears a jaw repositioning device.
Original Note:
Today's Communication / Plan
-
Continue antibiotics
Secretion clearance intervention
Increase activity as able
Repeat chest x-ray tomorrow
Follow fever curve and leukocytosis
Assessment
-
68-year-old woman with past medical history noted, particularly acid reflux that is uncontrolled with hiatal hernia, came to the hospital complaining of back pain, coughing and patient was found to be hypoxemic. Imaging of the chest demonstrated
left lower lobe infiltrate with loculated pleural effusion.
Acute respiratory insufficiency -requiring oxygen supplementation-suspect pneumonia. Possibly aspiration.
CT chest: Show left lower lobe consolidation suggestive of pneumonia. Possible necrosis. Small loculated pleural effusion.
Moderate hiatal hernia/significant acid reflux symptoms for
Leukocytosis
Conditions present prior admission:
History of asthma
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
Sjogren syndrome
Anxiety/depression
GERD
Hiatal hernia
restless leg syndrome status post spinal stimulator.
Right subclavian PowerPort, difficult IV access per patient./
Assessment and plan:
Left lower lobe pneumonia with associated small loculated pleural effusion.Possible necrotizing component. Abnormality is new compared to CAT scan from January 13, 2023.
Patient does report significant acid reflux with her hiatal hernia-could be aspiration pneumonia /complicated
-
Leukocytosis resolved.
Fever curve improving.
-
Continue antibiotics cefepime/azithromycin and Flagyl.
MRSA screen negative.
Legionella and Streptococcus antibodies negative.
Sputum culture if able-pending
Incentive spirometry
Acapella device
Currently on room air.
-
Speech evaluation noted: No overt aspiration.
Head of the bed elevation, continue antireflux measures. Patient does report significant acid reflux symptoms.
-
Will need radiographic follow-up in the outpatient setting. Information will be left in the chart.
Repeat chest x-ray tomorrow 01/26/2024 to assess pleural effusion.
-
History of asthma, not bronchospastic to continue inhalers PRN. Not on long acting inhalers.
-
DVT prophylaxis on anticoagulation-Xarelto.
Subjective Data
-
Date of Service:
Date of Service: January 25, 2024
Chief Complaint: Pulmonary Follow Up (Left lower lobe pneumonia)
Subjective:
No new complaints
Continues to have pleuritic type chest pain.
Denies hemoptysis
Reports difficulty expectorating.
Review of Systems
General: Fever (n)
Cardiopulmonary: Dyspnea (none at rest)
GI: Abdominal Pain (n) and Nausea (n)
Neuro: Headache (n)
Objective Data
Data Reviewed
Vital Signs / I&O / Oxygen:
Vital Signs
Temp Pulse Resp BP Pulse Ox
99.5 F 101 18 123/65 93
01/25/24 11:14 01/25/24 11:14 01/25/24 11:14 01/25/24 11:14 01/25/24 11:14
Intake and Output
01/24/24 01/25/24 01/26/24
06:59 06:59 06:59
Intake Total 1440 / 1440 480 / 480
Balance 1440 / 1440 480 / 480
SaO2 93
Nasal Cannula flow liters per 2
minute
Physical Exam
General: Respiratory Distress (n) and Comfortable
HEENT: Normocephalic
Cardiovascular: S1-S2
Respiratory: Clear, Non-Labored Respirations and Other (Decreased breath sounds in the left base.)
GI: Soft and Non Distended
Neurology: Awake and Alert
Skin: Warm
Labs/Micro/Reports
Lab Data
01/25/24 07:37
01/25/24 07:37
Microbiology
01/24/24 20:17 Urine Legionella Urinary Antigen - Final
Negative for Legionella pneumophila Serogroup 1 antigen.
A negative result does not rule out the possiblity of
Legionella infection due to other serogroups or species of
Legionella. Clinical correlation is recommended.
01/24/24 20:17 Urine Streptococcus pneumoniae Antigen (M - Final
Negative for Streptococcus pneumoniae antigen.
A negative result does not exclude infection with
Streptococcus pneumoniae. Clinical correlation is
recommended.
--- NOTE | 2024-01-25 16:09 | PTCARENOTE ---
Assumed care of patient at 15:00. No changes from previous assessment. VSS. Pox: 99 % RA. Plan of care ongoing. Call dior within reach.
[2024-01-25] MEDS: FLUSH (NSS) 2 FLUSH IV (17:45)
[2024-01-25] MEDS: DULCOLAX 5 MG PO (21:19)
[2024-01-25] MEDS: NEURONTIN 1200 MG PO (21:19)
[2024-01-25] MEDS: KLONOPIN 2 MG PO (21:19)
[2024-01-25] MEDS: MELATONIN 10 MG PO (21:19)
[2024-01-26] VITALS (7 sets, daily range): BP systolic 92–123; BP diastolic 45–61
[2024-01-26] MEDS: FLAGYL 500 MG 100 IV ×3 (03:53→20:22)
[2024-01-26] MEDS: VITAMIN D3 (cholecalciferol) 25 MCG PO (07:52)
[2024-01-26] MEDS: PEPCID 40 MG PO ×2 (07:52→20:22)
[2024-01-26] MEDS: PLAQUENIL 200 MG PO (07:52)
[2024-01-26] MEDS: NEURONTIN 600 MG PO (07:52)
[2024-01-26] MEDS: XARELTO 10 MG PO (07:52)
[2024-01-26] MEDS: OSCAL 500 + D 500 MG PO ×2 (07:52→20:22)
[2024-01-26] MEDS: PROTONIX 40 MG PO ×2 (07:52→20:22)
[2024-01-26] MEDS: LIDOCAINE 4% PATCH 1 PATCH TOPICAL (07:53)
[2024-01-26] MEDS: EFFEXOR XR 150 MG PO (07:53)
[2024-01-26] MEDS: RESTASIS 0.05% OPHTHALMIC EMULSION 1 DROPS BOTH EYES ×2 (07:53→20:22)
[2024-01-26] MEDS: MAXIPIME 2000 MG IV ×2 (07:53→20:22)
[2024-01-26] MEDS: NON-FORMULARY ITEM 1 CAP PO ×3 (07:54→21:28)
[2024-01-26] MEDS: ZITHROMAX INFUSION 250 IV (07:54)
[2024-01-26] MEDS: STERILE WATER FOR INJECTION 10 ML IV ×2 (07:54→20:21)
--- NOTE | 2024-01-26 09:13 | W.PN.PUL3 ---
Today's Communication / Plan
-
CXR showing persistent L basilar effusion
Will obtain chest US to eval for thora
Sputum culture if able otherwise, continue abx IV
Encouraged OOB/PT/IS
Assessment
-
68-year-old woman with past medical history noted, particularly acid reflux that is uncontrolled with hiatal hernia, came to the hospital complaining of back pain, coughing and patient was found to be hypoxemic. Imaging of the chest demonstrated
left lower lobe infiltrate with loculated pleural effusion.
Acute respiratory insufficiency -requiring oxygen supplementation-suspect pneumonia. Possibly aspiration.
CT chest: Show left lower lobe consolidation suggestive of pneumonia. Possible necrosis. Small loculated pleural effusion.
Moderate hiatal hernia/significant acid reflux symptoms for
Leukocytosis
Conditions present prior admission:
History of asthma
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
Sjogren syndrome
Anxiety/depression
GERD
Hiatal hernia
Restless leg syndrome status post spinal stimulator.
Right subclavian PowerPort, difficult IV access per patient
Assessment and plan:
Left lower lobe pneumonia with associated small loculated pleural effusion.Possible necrotizing component.
Abnormality is new compared to CAT scan from January 13, 2023.
Patient does report significant acid reflux with her hiatal hernia-could be aspiration pneumonia /complicated
Repeat CXR this AM showing more effusion, obtain chest US to eval for thora
Leukocytosis resolved.
Fever curve improving.
Continue antibiotics cefepime/azithromycin and Flagyl.
MRSA screen negative.
Legionella and Streptococcus antibodies negative.
Sputum culture if able-pending/non productive
Incentive spirometry
Acapella device
Currently on room air.
-
Speech evaluation noted: No overt aspiration.
Head of the bed elevation, continue antireflux measures.
Patient does report significant acid reflux symptoms.
-
Will need radiographic follow-up in the outpatient setting. Information will be left in the chart.
Repeat chest x-ray tomorrow 01/26/2024 to assess pleural effusion.
-
History of asthma, not bronchospastic to continue inhalers PRN. Not on long acting inhalers.
-
DVT prophylaxis on anticoagulation-Xarelto.
Subjective Data
-
Date of Service:
Date of Service: January 26, 2024
Chief Complaint: Pulmonary Follow Up (Left lower lobe pneumonia)
Subjective:
Sleeping on my arrival, no new complaints
SOB is about the same
Objective Data
Data Reviewed
Vital Signs / I&O / Oxygen:
Vital Signs
Temp Pulse Resp BP Pulse Ox
97.9 F 91 16 119/54 93
01/26/24 07:29 01/26/24 07:29 01/26/24 07:29 01/26/24 07:29 01/26/24 07:29
Intake and Output
01/25/24 01/26/24 01/27/24
06:59 06:59 06:59
Intake Total 480 / 480 1130 / 1130
Balance 480 / 480 1130 / 1130
SaO2 93
Nasal Cannula flow liters per 2
minute
Physical Exam
General: Respiratory Distress (n) and Comfortable
HEENT: Normocephalic, Anicteric and Moist Mucous Membranes
Cardiovascular: S1-S2, Regular Rhythm and Other (PORT in place)
Respiratory: Clear, Non-Labored Respirations and Other (Decreased breath sounds in the left base.)
GI: Soft, Non Distended and Non Tender
Neurology: Awake, Alert, Oriented, AO x 3 and No Motor Deficits
Skin: Warm, Dry and Good Color
Labs/Micro/Reports
Microbiology
01/24/24 09:42 Nose MRSA Screen - Final
No Methicillin Resistant Staphylococcus aureus isolated.
01/24/24 20:17 Urine Legionella Urinary Antigen - Final
Negative for Legionella pneumophila Serogroup 1 antigen.
A negative result does not rule out the possiblity of
Legionella infection due to other serogroups or species of
Legionella. Clinical correlation is recommended.
01/24/24 20:17 Urine Streptococcus pneumoniae Antigen (M - Final
Negative for Streptococcus pneumoniae antigen.
A negative result does not exclude infection with
Streptococcus pneumoniae. Clinical correlation is
recommended.
[2024-01-26 09:25] LABS: % Basophils 0.4 % (0-2); % Eosinophils 2.7 % (0-6); % Immature Granulocytes 0.8 % (0-0.5); % Lymphocytes 8.4 % (20.5-51.1); % Monocytes 6.9 % (1.7-9.3); % Neutrophils 80.8 % (42.2-75.2); Absolute Basophils 0.1 10^3/uL (0-0.2); Absolute Eosinophils 0.3 10^3/uL (0-0.7); Absolute Immature Granulocytes 0.1 10^3/uL (0-0.05); Absolute Monocytes 0.8 10^3/uL (0.1-0.6); Absolute Neutrophils 9.6 10^3/uL (1.4-6.5); Hematocrit 34.6 % (37.0-47.0); Hemoglobin 11.7 g/dL (12.0-16.0); Mean Corp Hgb Conc. 33.8 g/dL (33.0-37.0); Mean Corpuscular Hgb 30.7 pg (27.0-31.0); Mean Corpuscular Volume 90.8 fL (81.0-99.0); Mean Platelet Volume 9.4 fL (7.4-10.4); Nucleated Red Blood Cells % 0 %; Platelet Count 292 10^3/uL (130-400); Red Blood Cell Count 3.81 10^6/uL (4.20-5.40); Red Cell Dist. Width 13.6 % (11.5-14.5); White Blood Cell Count 11.9 10^3/uL (4.8-10.8)
[2024-01-26 09:41] LABS: Blood Urea Nitrogen 12 mg/dl (7-17); Calcium 9.1 mg/dl (8.4-10.2); Carbon Dioxide 23 mmol/L (22-30); Chloride 104 mmol/L (98-107); Estimated Creatinine Clearance 46 ml/min; Glucose 119 mg/dl (70-99); Potassium 4.3 mmol/L (3.5-5.1); Sodium 138 mmol/L (135-145); eGFR > 60.00
--- NOTE | 2024-01-26 10:02 | W.PN.HOSP.TC ---
Today's Communication/Plan
-
CXR just completed
await management of port, IV team to try Heparin flush now
Assessment / Plan
Assessment / Plan
IMPRESSION:
patient is 68 years old with history of seizure, GI bleeding, hiatal hernia, GERD, small bowel obstruction, mitral valve prolapse, sleep apnea, pulm embolism/DVT status post [place] filter, factor V Leyden deficiency, PVCs, hypertension, sleep
apnea, asthma, restless leg syndrome, Sjogren's disease, osteopororosis who came to the ER with back pain, coughing found to have pneumonia.
PLAN:
Sever Sepsis with Acute organ dysfunction likely 2/2 small loculated pleural effusion secondary to pneumonia ?necrotizing -poa
Pleuritic pain due to pneumonia
started on Cefepime and Zithromax, will continue.-Allergic to multiple medications including antibiotics. Monitor closely. Added anaerobes coverage flagyl.
wbc downtrended.
14.1-->10.1-->10.8-->11.9
Neg MRSA screen
reaction to vancomycin
CT chest Irregular airspace consolidation within the LEFT lower lobe. Decreased enhancement within the lateral portion of this area of consolidation suspicious for pneumonia with possible necrosis. Small associated loculated pleural effusion. No
evidence for aortic dissection or acute aortic pathology. No evidence for pulmonary embolism.Patulous esophagus with small to moderate hiatal hernia.
strep pneum and legionella urinary antigen-Negative
sputum sample
Passed shallow eval. afebrile x 36hrs
Repeat CXR report pending
Pulm following
Acute hypoxic respiratory insufficiency secondary to pneumonia
cont oxygen
wean as tolerated
seen on room air
Asthma
-Continue inhalers
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
-Continue Xarelto
Restless leg syndrome status post spinal stimulator
-Continue gabapentin
Sjogren's disease
-Continue hydroxychloroquine
Anxiety/depression
-Continue clonazepam
-Continue venlafaxine
Port is without blood return. tPa is contraindicated in pt on Xarelto, discussed with pharm and RN
Full code
DVT prophylaxis�Xarelto
Anticipated Discharge: 24 - 48 hours
Subjective/Interval History
-
Date of Service: January 26, 2024
Awake, alert
Objective Data
-
Labs:
Laboratory Results
01/26/24
08:56
WBC 11.9 H
Hgb 11.7 L
Hct 34.6 L
Plt Count 292
Sodium 138
Potassium 4.3
Chloride 104
Carbon Dioxide 23
BUN 12
Creatinine 0.9
Glucose 119 H
Calcium 9.1
Vital Signs:
Vital Signs
Temp Pulse Resp BP Pulse Ox
97.9 F 91 16 119/54 93
01/26/24 07:29 01/26/24 07:29 01/26/24 07:29 01/26/24 07:29 01/26/24 07:29
I&O
01/25/24 01/26/24 01/27/24
06:59 06:59 06:59
Intake Total 480 / 480 1130 / 1130
Balance 480 / 480 1130 / 1130
Review of Systems
-
History Source: Patient and Coordinated Provider
Constitutional: Denies Fever
EENT: Reports No Symptoms Reported
Respiratory: Reports Cough and Trouble Breathing (better)
Cardiac: Reports No Symptoms
Abdomen/GI: Reports No Symptoms
Musculoskeletal: Reports Joint Pain (post op)
Physical Exam
-
General: Well Developed, Well Nourished and No Apparent Distress
HEENT: Normocephalic, Atraumatic, Moist Mucous Membranes and Other (chest port noted )
Respiratory: Rhonchi (markedly diminished)
Cardiac: Regular Rhythm and S1/S2
GI: Soft, Nontender, Nondistended and Normal Bowel Sounds
Musculoskeletal: No Edema and Other (rt arm in sling)
Skin: Warm
Neuro: Awake and AO x 3
Psych: Calm
[2024-01-26] MEDS: TESSALON PERLES 200 MG PO (12:16)
[2024-01-26] MEDS: DILAUDID 1 MG IV ×3 (12:20→20:37)
[2024-01-26] MEDS: CATHFLO/ACTIVASE 2 MG INTRACATH (14:27)
--- NOTE | 2024-01-26 16:18 | VATNOTE ---
positive blood return now after Activase dwell.
--- NOTE | 2024-01-26 19:13 | PTCARENOTE ---
Received patient this am AAOx3. Right CW Port had no blood return this am. IV team aware. Dr. Roldan made aware. Md had concern about ordering alteplase to de clot port secondary to pt being on Xarelto. Primary Nurse called Interventional Radiology
to discuss process when patients are on anticoagulation. Alteplase given to declot port does not go systemic. Dr. Roldan made aware. IV team administered through port. It dwelled for 1.5 hours an was successful treatment to declot port. Pt
complained of back pain. Medicated with IV Dilaudid with relief. Made patient comfortable. Cont to assess patient status.
[2024-01-26] MEDS: FLUSH (NSS) 3 FLUSH IV (20:24)
[2024-01-26] MEDS: FLUSH (NSS) 2 FLUSH IV (20:37)
[2024-01-26] MEDS: MELATONIN 10 MG PO (21:27)
[2024-01-26] MEDS: DULCOLAX 5 MG PO (21:27)
[2024-01-26] MEDS: NEURONTIN 1200 MG PO (21:27)
[2024-01-26] MEDS: KLONOPIN 2 MG PO (21:27)
[2024-01-26] MEDS: FLUSH (NSS) 1 FLUSH IV (21:41)
[2024-01-27] MEDS: DILAUDID 1 MG IV ×6 (00:57→21:17)
[2024-01-27] MEDS: FLUSH (NSS) 1 FLUSH IV ×3 (00:59→22:58)
[2024-01-27 03:15] VITALS: BP 126/61
[2024-01-27] MEDS: FLAGYL 500 MG 100 IV ×3 (04:31→21:17)
[2024-01-27] MEDS: FLUSH (NSS) 2 FLUSH IV (05:04)
[2024-01-27 05:23] LABS: % Basophils 0.6 % (0-2); % Eosinophils 4.7 % (0-6); % Immature Granulocytes 1.3 % (0-0.5); % Lymphocytes 13.9 % (20.5-51.1); % Monocytes 9.3 % (1.7-9.3); % Neutrophils 70.2 % (42.2-75.2); Absolute Basophils 0.1 10^3/uL (0-0.2); Absolute Eosinophils 0.4 10^3/uL (0-0.7); Absolute Immature Granulocytes 0.1 10^3/uL (0-0.05); Absolute Lymphocytes 1.2 10^3/uL (1.2-3.4); Absolute Monocytes 0.8 10^3/uL (0.1-0.6); Absolute Neutrophils 6.2 10^3/uL (1.4-6.5); Hematocrit 30.3 % (37.0-47.0); Mean Corpuscular Hgb 30.7 pg (27.0-31.0); Mean Corpuscular Volume 92.9 fL (81.0-99.0); Mean Platelet Volume 9.3 fL (7.4-10.4); Nucleated Red Blood Cells % 0 %; Platelet Count 300 10^3/uL (130-400); Red Blood Cell Count 3.26 10^6/uL (4.20-5.40); Red Cell Dist. Width 13.8 % (11.5-14.5); White Blood Cell Count 8.8 10^3/uL (4.8-10.8)
[2024-01-27 06:15] LABS: Blood Urea Nitrogen 13 mg/dl (7-17); Calcium 8.4 mg/dl (8.4-10.2); Carbon Dioxide 29 mmol/L (22-30); Chloride 104 mmol/L (98-107); Estimated Creatinine Clearance 46 ml/min; Glucose 90 mg/dl (70-99); Potassium 3.9 mmol/L (3.5-5.1); Sodium 138 mmol/L (135-145); eGFR > 60.00
[2024-01-27 08:07] VITALS: BP 99/56
--- NOTE | 2024-01-27 09:18 | W.PN.PUL3 ---
Today's Communication / Plan
-
Chest US reviewed, too small in my opinion to warrant tap
Can repeat CXR in AM, if showing improvement would finish course of abx
Can follow up with OP imaging in 4-6 weeks
Discharge planning per team
Assessment
-
68-year-old woman with past medical history noted, particularly acid reflux that is uncontrolled with hiatal hernia, came to the hospital complaining of back pain, coughing and patient was found to be hypoxemic. Imaging of the chest demonstrated
left lower lobe infiltrate with loculated pleural effusion.
Acute respiratory insufficiency -requiring oxygen supplementation-suspect pneumonia. Possibly aspiration.
CT chest: Show left lower lobe consolidation suggestive of pneumonia. Possible necrosis. Small loculated pleural effusion.
Moderate hiatal hernia/significant acid reflux symptoms for
Leukocytosis
Conditions present prior admission:
History of asthma
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
Sjogren syndrome
Anxiety/depression
GERD
Hiatal hernia
Restless leg syndrome status post spinal stimulator.
Right subclavian PowerPort, difficult IV access per patient
Assessment and plan:
Left lower lobe pneumonia with associated small loculated pleural effusion.Possible necrotizing component.
Abnormality is new compared to CAT scan from January 13, 2023.
Patient does report significant acid reflux with her hiatal hernia-could be aspiration pneumonia /complicated
Repeat CXR this AM showing more effusion
Chest US obtained showing small effusion on my review, not significant enough to perform thora
Reviewed with patient and she agrees
Leukocytosis resolved.
Fever curve improving.
Continue antibiotics cefepime/azithromycin and Flagyl.
MRSA screen negative.
Legionella and Streptococcus antibodies negative.
Sputum culture if able-pending/non productive
Incentive spirometry
Acapella device
Currently on room air.
-
Speech evaluation noted: No overt aspiration.
Head of the bed elevation, continue antireflux measures.
Patient does report significant acid reflux symptoms.
-
Will need radiographic follow-up in the outpatient setting. Information will be left in the chart.
Repeat chest x-ray tomorrow 01/28/2024 to assess pleural effusion.
-
History of asthma, not bronchospastic to continue inhalers PRN. Not on long acting inhalers.
-
DVT prophylaxis on anticoagulation-Xarelto.
Subjective Data
-
Date of Service:
Date of Service: January 27, 2024
Chief Complaint: Pulmonary Follow Up (Left lower lobe pneumonia)
Subjective:
doing well, remains stable on RA
no new complaints
Objective Data
Data Reviewed
Vital Signs / I&O / Oxygen:
Vital Signs
Temp Pulse Resp BP Pulse Ox
98.3 F 84 18 99/56 99
01/27/24 08:07 01/27/24 08:07 01/27/24 08:07 01/27/24 08:07 01/27/24 08:07
Intake and Output
01/26/24 01/27/24 01/28/24
06:59 06:59 06:59
Intake Total 1130 / 1130 1170 / 1170
Balance 1130 / 1130 1170 / 1170
SaO2 99
Nasal Cannula flow liters per 2
minute
Physical Exam
General: Respiratory Distress (n) and Comfortable
HEENT: Normocephalic, Anicteric and Moist Mucous Membranes
Cardiovascular: S1-S2, Regular Rhythm and Other (PORT in place)
Respiratory: Clear, Non-Labored Respirations and Other (Decreased breath sounds in the left base.)
GI: Soft, Non Distended and Non Tender
Neurology: Awake, Alert, Oriented, AO x 3 and No Motor Deficits
Skin: Warm, Dry and Good Color
Labs/Micro/Reports
Lab Data
01/27/24 04:44
07/23/24 04:44
Microbiology
01/24/24 09:42 Nose MRSA Screen - Final
No Methicillin Resistant Staphylococcus aureus isolated.
01/24/24 20:17 Urine Legionella Urinary Antigen - Final
Negative for Legionella pneumophila Serogroup 1 antigen.
A negative result does not rule out the possiblity of
Legionella infection due to other serogroups or species of
Legionella. Clinical correlation is recommended.
01/24/24 20:17 Urine Streptococcus pneumoniae Antigen (M - Final
Negative for Streptococcus pneumoniae antigen.
A negative result does not exclude infection with
Streptococcus pneumoniae. Clinical correlation is
recommended.
[2024-01-27] MEDS: ZITHROMAX INFUSION 250 IV (09:34)
[2024-01-27 09:40] VITALS: BP 110/60
[2024-01-27] MEDS: NON-FORMULARY ITEM 1 CAP PO ×3 (09:42→22:11)
[2024-01-27] MEDS: LIDOCAINE 4% PATCH 1 PATCH TOPICAL (09:43)
[2024-01-27] MEDS: MAXIPIME 2000 MG IV ×2 (09:45→21:18)
[2024-01-27] MEDS: STERILE WATER FOR INJECTION 10 ML IV ×2 (09:45→21:18)
[2024-01-27] MEDS: RESTASIS 0.05% OPHTHALMIC EMULSION 1 DROPS BOTH EYES ×2 (09:49→22:11)
[2024-01-27] MEDS: TESSALON PERLES 200 MG PO (09:50)
[2024-01-27] MEDS: PEPCID 40 MG PO ×2 (09:50→21:20)
[2024-01-27] MEDS: VITAMIN D3 (cholecalciferol) 25 MCG PO (09:50)
[2024-01-27] MEDS: OSCAL 500 + D 500 MG PO ×2 (09:50→21:19)
[2024-01-27] MEDS: XARELTO 10 MG PO (09:50)
[2024-01-27] MEDS: PROTONIX 40 MG PO ×2 (09:50→21:20)
[2024-01-27] MEDS: NEURONTIN 600 MG PO (09:51)
[2024-01-27] MEDS: PLAQUENIL 200 MG PO (09:51)
[2024-01-27] MEDS: EFFEXOR XR 150 MG PO (09:51)
--- NOTE | 2024-01-27 10:21 | CM ---
Patient seen bedside, denies any needs to CM at this time. Patient remains on IV antibiotics, watch for home IV antibiotic needs. CM will continue to follow for all needs upon discharge.
Plan; home no needs anticipated.
[2024-01-27 11:41] VITALS: BP 100/56
--- NOTE | 2024-01-27 15:04 | PN.CDI ---
CDI
- -
CDI:
Physician Documentation Request
Admit Date: 01/23/24 12:35
Dear Doctor Jamar,
Please review the following and provide your response in the progress notes.
Clinical Indicators:
Documentation in the record on 01/24/24 includes the diagnosis of severe sepsis with acute organ dysfunction. The following clinical information was noted in the record:
Pt admitted with Severe Sepsis with Acute organ dysfunction secondary to pneumonia
Pt on 2LNC to RA, LFT's and creatine within normal limits; no neurological deficits noted in chart.
Please clarify in the Progress Notes what acute organ dysfunction is present.
Sepsis only
Severe Sepsis with Acute Organ dysfunction- please specify organ
Other
Use of terms such as suspected, likely, concern for, or probable (associated with a specific diagnosis that is being evaluated, monitored, or treated as if it exists) are acceptable and can be coded in the inpatient setting, when documented at the
time of discharge.
Thank you,
Kimberley Rodas RN, BSN
CDI Specialist
Available via [place] [employer]
Please use your independent medical judgment in providing your response.
[2024-01-27 16:06] VITALS: BP 104/57
--- NOTE | 2024-01-27 17:03 | W.PN.HOSP.TC ---
Today's Communication/Plan
-
CXR tomorrow
needs to use incentive spirometry regularly
Assessment / Plan
Assessment / Plan
IMPRESSION:
patient is 68 years old with history of seizure, GI bleeding, hiatal hernia, GERD, small bowel obstruction, mitral valve prolapse, sleep apnea, pulm embolism/DVT status post [place] filter, factor V Leyden deficiency, PVCs, hypertension, sleep
apnea, asthma, restless leg syndrome, Sjogren's disease, osteopororosis who came to the ER with back pain, coughing found to have pneumonia.
PLAN:
Sepsis with associated respiratory distress
Pleuritic pain due to pneumonia
started on Cefepime and Zithromax, will continue.-Allergic to multiple medications including antibiotics. Monitor closely. Added anaerobes coverage flagyl.
wbc downtrended.
14.1-->10.1-->10.8-->11.9-->8.8
Neg MRSA screen
reaction to vancomycin
CT chest Irregular airspace consolidation within the LEFT lower lobe. Decreased enhancement within the lateral portion of this area of consolidation suspicious for pneumonia with possible necrosis. Small associated loculated pleural effusion. No
evidence for aortic dissection or acute aortic pathology. No evidence for pulmonary embolism.Patulous esophagus with small to moderate hiatal hernia.
strep pneum and legionella urinary antigen-Negative
sputum sample
Passed shallow eval. afebrile x 36hrs
Repeat 01/25 CXR: Small left pleural effusion with associated atelectasis and/or pneumonia, slightly improved.
Pulm following, requesting CXR tomorrow
Acute hypoxic respiratory insufficiency secondary to pneumonia
seen on room air
rm air 95%
Asthma
-Continue inhalers
History of factor V Leyden deficiency/ History of DVT/PE status post [place] filter
-Continue Xarelto
Restless leg syndrome status post spinal stimulator
-Continue gabapentin
Sjogren's disease
-Continue hydroxychloroquine
Anxiety/depression
-Continue clonazepam
-Continue venlafaxine
Port on 01/25 was without blood return. pt received tPa to allow blood return
Full code
DVT prophylaxis�Xarelto
Anticipated Discharge: 24 - 48 hours
Subjective/Interval History
-
Date of Service: January 27, 2024
generally feels better
Objective Data
-
Labs:
Laboratory Results
01/27/24
04:44
WBC 8.8
Hgb 10.0 L
Hct 30.3 L
Plt Count 300
Sodium 138
Potassium 3.9
Chloride 104
Carbon Dioxide 29
BUN 13
Creatinine 0.9
Glucose 90
Calcium 8.4
Vital Signs:
Vital Signs
Temp Pulse Resp BP Pulse Ox
98.4 F 87 18 104/57 95
01/27/24 16:06 01/27/24 16:06 01/27/24 16:06 01/27/24 16:06 01/27/24 16:06
I&O
01/26/24 01/27/24 01/28/24
06:59 06:59 06:59
Intake Total 1130 / 1130 1170 / 1170
Balance 1130 / 1130 1170 / 1170
Review of Systems
-
History Source: Patient and Coordinated Provider
Constitutional: Denies Fever
EENT: Reports No Symptoms Reported
Respiratory: Reports Cough and Trouble Breathing (better)
Cardiac: Reports No Symptoms
Abdomen/GI: Reports No Symptoms
Musculoskeletal: Reports Joint Pain (post op)
Physical Exam
-
General: Well Developed, Well Nourished and No Apparent Distress
HEENT: Normocephalic, Atraumatic, Moist Mucous Membranes and Other (chest port noted )
Respiratory: Rhonchi (markedly diminished, bibasilar)
Cardiac: Regular Rhythm and S1/S2
GI: Soft, Nontender, Nondistended and Normal Bowel Sounds
Musculoskeletal: No Edema and Other (rt arm in sling)
Skin: Warm
Neuro: Awake and AO x 3
Psych: Calm
[2024-01-27] MEDS: KLONOPIN 2 MG PO (22:11)
[2024-01-27] MEDS: DULCOLAX 5 MG PO (22:11)
[2024-01-27] MEDS: MELATONIN 10 MG PO (22:11)
[2024-01-27] MEDS: NEURONTIN 1200 MG PO (22:12)
[2024-01-28 00:04] VITALS: BP 132/69
[2024-01-28] MEDS: DILAUDID 1 MG IV ×3 (01:16→12:44)
[2024-01-28] MEDS: FLAGYL 500 MG 100 IV ×3 (04:54→21:55)
[2024-01-28 08:22] VITALS: BP 126/57
--- NOTE | 2024-01-28 09:18 | W.PN.PUL3 ---
Today's Communication / Plan
-
ABx continued but CXR remains the same
IR consult for thora, labs are ordered
Bowel regiment per primary team
Assessment
-
68-year-old woman with past medical history noted, particularly acid reflux that is uncontrolled with hiatal hernia, came to the hospital complaining of back pain, coughing and patient was found to be hypoxemic. Imaging of the chest demonstrated
left lower lobe infiltrate with loculated pleural effusion.
Acute respiratory insufficiency -requiring oxygen supplementation-suspect pneumonia. Possibly aspiration.
CT chest: Show left lower lobe consolidation suggestive of pneumonia. Possible necrosis. Small loculated pleural effusion.
Moderate hiatal hernia/significant acid reflux symptoms for
Leukocytosis
Conditions present prior admission:
History of asthma
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
Sjogren syndrome
Anxiety/depression
GERD
Hiatal hernia
Restless leg syndrome status post spinal stimulator.
Right subclavian PowerPort, difficult IV access per patient
Assessment and plan:
Left lower lobe pneumonia with associated small loculated pleural effusion.Possible necrotizing component.
Abnormality is new compared to CAT scan from January 13, 2023.
Patient does report significant acid reflux with her hiatal hernia-could be aspiration pneumonia /complicated
Repeat CXR this AM showing more effusion
Chest US obtained showing small effusion on my review, but repeat CXR showing worsening effusion
IR consult for marciel gonzalez
Ordered pleural studies
Leukocytosis resolved.
Fever curve improving.
Continue antibiotics cefepime/azithromycin and Flagyl.
MRSA screen negative.
Legionella and Streptococcus antibodies negative.
Sputum culture if able-pending/non productive
Incentive spirometry
Acapella device
Currently on room air.
-
Speech evaluation noted: No overt aspiration.
Head of the bed elevation, continue antireflux measures.
Patient does report significant acid reflux symptoms.
Has not had BM
Primary team to add regiment
-
Will need radiographic follow-up in the outpatient setting. Information will be left in the chart.
Repeat chest x-ray tomorrow 01/28/2024 to assess pleural effusion.
-
History of asthma, not bronchospastic to continue inhalers PRN. Not on long acting inhalers.
-
DVT prophylaxis on anticoagulation-Xarelto.
Subjective Data
-
Date of Service:
Date of Service: January 28, 2024
Chief Complaint: Pulmonary Follow Up (Left lower lobe pneumonia)
Subjective:
remains stable on RA
no new complaints
has not had BMs
Objective Data
Data Reviewed
Vital Signs / I&O / Oxygen:
Vital Signs
Temp Pulse Resp BP Pulse Ox
97.5 F 89 18 126/57 98
01/28/24 08:22 01/28/24 08:22 01/28/24 08:22 01/28/24 08:22 01/28/24 08:22
Intake and Output
01/27/24 01/28/24 01/29/24
06:59 06:59 06:59
Intake Total 1170 / 1170 19190
Balance 1170 / 1170 1919 / 1920
SaO2 98
Nasal Cannula flow liters per 2
minute
Physical Exam
General: Respiratory Distress (n) and Comfortable
HEENT: Normocephalic, Anicteric and Moist Mucous Membranes
Cardiovascular: S1-S2, Regular Rhythm and Other (PORT in place)
Respiratory: Clear, Non-Labored Respirations and Other (Decreased breath sounds in the left base.)
GI: Soft, Non Distended and Non Tender
Neurology: Awake, Alert, Oriented, AO x 3 and No Motor Deficits
Skin: Warm, Dry and Good Color
Labs/Micro/Reports
Lab Data
01/27/24 04:44
01/27/24 04:44
Microbiology
01/24/24 09:42 Nose MRSA Screen - Final
No Methicillin Resistant Staphylococcus aureus isolated.
01/24/24 20:17 Urine Legionella Urinary Antigen - Final
Negative for Legionella pneumophila Serogroup 1 antigen.
A negative result does not rule out the possiblity of
Legionella infection due to other serogroups or species of
Legionella. Clinical correlation is recommended.
01/24/24 20:17 Urine Streptococcus pneumoniae Antigen (M - Final
Negative for Streptococcus pneumoniae antigen.
A negative result does not exclude infection with
Streptococcus pneumoniae. Clinical correlation is
recommended.
[2024-01-28] MEDS: RESTASIS 0.05% OPHTHALMIC EMULSION 1 DROPS BOTH EYES ×2 (09:48→21:55)
[2024-01-28] MEDS: ZITHROMAX INFUSION 250 IV (09:48)
[2024-01-28] MEDS: MAXIPIME 2000 MG IV ×2 (09:49→21:55)
[2024-01-28] MEDS: PROTONIX 40 MG PO ×2 (09:49→21:56)
[2024-01-28] MEDS: VITAMIN D3 (cholecalciferol) 25 MCG PO (09:49)
[2024-01-28] MEDS: STERILE WATER FOR INJECTION 10 ML IV ×2 (09:49→21:55)
[2024-01-28] MEDS: NEURONTIN 600 MG PO (09:49)
[2024-01-28] MEDS: LIDOCAINE 4% PATCH TOPICAL (09:50)
[2024-01-28] MEDS: ULTRAM 50 MG PO ×3 (09:50→22:11)
[2024-01-28] MEDS: PLAQUENIL 200 MG PO (09:50)
[2024-01-28] MEDS: PEPCID 40 MG PO ×2 (09:50→21:56)
[2024-01-28] MEDS: OSCAL 500 + D 500 MG PO ×2 (09:50→21:56)
[2024-01-28] MEDS: XARELTO 10 MG PO (09:50)
[2024-01-28] MEDS: EFFEXOR XR 150 MG PO (09:50)
[2024-01-28] MEDS: NON-FORMULARY ITEM 1 CAP PO ×3 (09:51→21:57)
[2024-01-28 14:40] VITALS: BP 111/52; BP_SYST 88
--- NOTE | 2024-01-28 15:11 | CM ---
Patient off floor, CM reviewed chart. Patient remains on IV antibiotics. CM will continue to follow for all discharge planning needs.
Plan; home no needs, watch for home IV antibiotic needs upon discharge.
--- NOTE | 2024-01-28 15:13 | W.PN.HOSP.TC ---
Today's Communication/Plan
-
consideration for thoracentesis
will add Colace/MOM
Assessment / Plan
Assessment / Plan
IMPRESSION:
patient is 68 years old with history of seizure, GI bleeding, hiatal hernia, GERD, small bowel obstruction, mitral valve prolapse, sleep apnea, pulm embolism/DVT status post [place] filter, factor V Leyden deficiency, PVCs, hypertension, sleep
apnea, asthma, restless leg syndrome, Sjogren's disease, osteopororosis who came to the ER with back pain, coughing found to have pneumonia.
PLAN:
Sepsis with associated respiratory distress
Pleuritic pain due to pneumonia
started on Cefepime and Zithromax (received 5 doses of Azithromycin, will stop) will continue.-Allergic to multiple medications including antibiotics. Monitor closely. Added anaerobes coverage flagyl.
wbc downtrended.
14.1-->10.1-->10.8-->11.9-->8.8
Neg MRSA screen
reaction to vancomycin
CT chest Irregular airspace consolidation within the LEFT lower lobe. Decreased enhancement within the lateral portion of this area of consolidation suspicious for pneumonia with possible necrosis. Small associated loculated pleural effusion. No
evidence for aortic dissection or acute aortic pathology. No evidence for pulmonary embolism.Patulous esophagus with small to moderate hiatal hernia.
strep pneum and legionella urinary antigen-Negative
sputum sample
Passed shallow eval. afebrile x 36hrs
Repeat 01/25 CXR: Small left pleural effusion with associated atelectasis and/or pneumonia, slightly improved.
01/27: Slight interval increase in size of a small left pleural effusion.
Pulm following, discussed with Dr. Segura
Acute hypoxic respiratory insufficiency secondary to pneumonia
seen on room air
rm air 95%
Asthma
-Continue inhalers
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
-Continue Xarelto
Restless leg syndrome status post spinal stimulator
-Continue gabapentin
Sjogren's disease
-Continue hydroxychloroquine
Anxiety/depression
-Continue clonazepam
-Continue venlafaxine
constipation: pt on Amitiza 24 mcg bid
will add Colace and prn MOM
Port on 01/25 was without blood return. pt received tPa to allow blood return
Full code
DVT prophylaxis�Xarelto
Anticipated Discharge: 24 - 48 hours
Subjective/Interval History
-
Date of Service: January 28, 2024
Her main complaint currently is constipation
Objective Data
-
Vital Signs:
Vital Signs
Temp Pulse Resp BP Pulse Ox
97.5 F 88 20 111/52 95
01/28/24 14:40 01/28/24 14:40 01/28/24 14:40 01/28/24 14:40 01/28/24 14:40
I&O
01/27/24 01/28/24 01/29/24
06:59 06:59 06:59
Intake Total 1170 / 1170 1919
Balance 1170 / 1170 1919
Review of Systems
-
History Source: Patient and Coordinated Provider
Constitutional: Denies Fever
EENT: Reports No Symptoms Reported
Respiratory: Reports Cough and Trouble Breathing (better)
Cardiac: Reports No Symptoms
Abdomen/GI: Reports No Symptoms
Musculoskeletal: Reports Joint Pain (post op)
Physical Exam
-
General: Well Developed, Well Nourished and No Apparent Distress
HEENT: Normocephalic, Atraumatic, Moist Mucous Membranes and Other (chest port noted )
Respiratory: Rhonchi (markedly diminished, bibasilar, moving air better)
Cardiac: Regular Rhythm and S1/S2
GI: Soft, Nontender, Nondistended and Normal Bowel Sounds
Musculoskeletal: No Edema
Skin: Warm
Neuro: Awake and AO x 3
Psych: Calm
[2024-01-28 15:35] VITALS: BP 120/69
[2024-01-28] MEDS: COLACE 100 MG PO (21:55)
[2024-01-28] MEDS: DULCOLAX 5 MG PO (21:57)
[2024-01-28] MEDS: MELATONIN 10 MG PO (21:57)
[2024-01-28] MEDS: KLONOPIN 2 MG PO (21:57)
[2024-01-28] MEDS: NEURONTIN 1200 MG PO (21:57)
[2024-01-28 23:30] VITALS: BP 99/60
[2024-01-29] MEDS: FLAGYL 500 MG 100 IV ×2 (04:11→12:51)
[2024-01-29 07:30] VITALS: BP 118/67
[2024-01-29 08:13] LABS: % Basophils 0.8 % (0-2); % Immature Granulocytes 1.6 % (0-0.5); % Lymphocytes 15.5 % (20.5-51.1); % Monocytes 7.6 % (1.7-9.3); % Neutrophils 68.5 % (42.2-75.2); Absolute Basophils 0.1 10^3/uL (0-0.2); Absolute Eosinophils 0.5 10^3/uL (0-0.7); Absolute Immature Granulocytes 0.1 10^3/uL (0-0.05); Absolute Lymphocytes 1.4 10^3/uL (1.2-3.4); Absolute Monocytes 0.7 10^3/uL (0.1-0.6); Absolute Neutrophils 6.1 10^3/uL (1.4-6.5); Hematocrit 36.2 % (37.0-47.0); Hemoglobin 11.9 g/dL (12.0-16.0); Mean Corp Hgb Conc. 32.9 g/dL (33.0-37.0); Mean Corpuscular Hgb 31.3 pg (27.0-31.0); Mean Corpuscular Volume 95.3 fL (81.0-99.0); Mean Platelet Volume 9.1 fL (7.4-10.4); Nucleated Red Blood Cells % 0 %; Platelet Count 369 10^3/uL (130-400); Red Cell Dist. Width 13.6 % (11.5-14.5); White Blood Cell Count 8.9 10^3/uL (4.8-10.8)
[2024-01-29 08:40] VITALS: BP 118/67
--- NOTE | 2024-01-29 09:13 | W.PN.PUL3 ---
Today's Communication / Plan
-
Thora attempted but fluid too small to proceed
Would continue abx for full course which can be transitioned to oral course
Repeat CXR in 2 weeks as OP
Had BM, improved
Discharge planning per team
No other recs at this time
We will sign off, please call with questions
Assessment
-
68-year-old woman with past medical history noted, particularly acid reflux that is uncontrolled with hiatal hernia, came to the hospital complaining of back pain, coughing and patient was found to be hypoxemic. Imaging of the chest demonstrated
left lower lobe infiltrate with loculated pleural effusion.
Acute respiratory insufficiency -requiring oxygen supplementation-suspect pneumonia. Possibly aspiration.
CT chest: Show left lower lobe consolidation suggestive of pneumonia. Possible necrosis. Small loculated pleural effusion.
Moderate hiatal hernia/significant acid reflux symptoms for
Leukocytosis
Conditions present prior admission:
History of asthma
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
Sjogren syndrome
Anxiety/depression
GERD
Hiatal hernia
Restless leg syndrome status post spinal stimulator.
Right subclavian PowerPort, difficult IV access per patient
Assessment and plan:
Left lower lobe pneumonia with associated small loculated pleural effusion.Possible necrotizing component.
Abnormality is new compared to CAT scan from January 13, 2023.
Patient does report significant acid reflux with her hiatal hernia-could be aspiration pneumonia /complicated
Repeat CXR this AM showing more effusion
Chest US obtained showing small effusion on my review, but repeat CXR showing worsening effusion
IR consult for maricel eval--brought down but chest US showing fluid too small, not attempted
Leukocytosis resolved.
Fever curve improving.
Continue antibiotics cefepime/azithromycin and Flagyl.
MRSA screen negative.
Legionella and Streptococcus antibodies negative.
Sputum culture if able-pending/non productive
Incentive spirometry
Acapella device
Currently on room air.
-
Speech evaluation noted: No overt aspiration.
Head of the bed elevation, continue antireflux measures.
Patient does report significant acid reflux symptoms.
Has not had BM
Primary team to add regiment
-
Will need radiographic follow-up in the outpatient setting. Information will be left in the chart.
Repeat chest x-ray tomorrow 01/28/2024 to assess pleural effusion.
-
History of asthma, not bronchospastic to continue inhalers PRN. Not on long acting inhalers.
-
DVT prophylaxis on anticoagulation-Xarelto.
Subjective Data
-
Date of Service:
Date of Service: January 29, 2024
Chief Complaint: Pulmonary Follow Up (Left lower lobe pneumonia)
Subjective:
remains stable on RA
no acute events ON
had a BM
Objective Data
Data Reviewed
Vital Signs / I&O / Oxygen:
Vital Signs
Temp Pulse Resp BP Pulse Ox
98.0 F 78 14 118/67 93
01/29/24 07:30 01/29/24 07:30 01/29/24 07:30 01/29/24 07:30 01/29/24 07:30
Intake and Output
01/28/24 01/29/24 01/30/24
06:59 06:59 06:59
Intake Total 1919 1620 / 1620
Balance 1919 1620 / 1620
SaO2 93
Nasal Cannula flow liters per 2
minute
Physical Exam
General: Respiratory Distress (n) and Comfortable
HEENT: Normocephalic, Anicteric and Moist Mucous Membranes
Cardiovascular: S1-S2, Regular Rhythm and Other (PORT in place)
Respiratory: Crackles (L base) and Non-Labored Respirations
GI: Soft, Non Distended and Non Tender
Neurology: Awake, Alert, Oriented, AO x 3 and No Motor Deficits
Skin: Warm, Dry and Good Color
Labs/Micro/Reports
Lab Data
01/29/24 07:43
[2024-01-29 09:57] LABS: Blood Urea Nitrogen 15 mg/dl (7-17); Carbon Dioxide 23 mmol/L (22-30); Chloride 104 mmol/L (98-107); Estimated Creatinine Clearance 52 ml/min; Glucose 91 mg/dl (70-99); Potassium 4.2 mmol/L (3.5-5.1); Sodium 139 mmol/L (135-145); eGFR > 60.00
[2024-01-29] MEDS: NEURONTIN 600 MG PO (09:57)
[2024-01-29] MEDS: OSCAL 500 + D 500 MG PO (09:58)
[2024-01-29] MEDS: PEPCID 40 MG PO (09:58)
[2024-01-29] MEDS: VITAMIN D3 (cholecalciferol) 25 MCG PO (09:58)
[2024-01-29] MEDS: XARELTO 10 MG PO (09:59)
[2024-01-29] MEDS: PROTONIX 40 MG PO (09:59)
[2024-01-29] MEDS: COLACE 100 MG PO (09:59)
[2024-01-29] MEDS: PLAQUENIL 200 MG PO (10:00)
[2024-01-29] MEDS: EFFEXOR XR 150 MG PO (10:00)
[2024-01-29] MEDS: STERILE WATER FOR INJECTION 10 ML IV (10:01)
[2024-01-29] MEDS: MAXIPIME 2000 MG IV (10:01)
[2024-01-29] MEDS: ZITHROMAX INFUSION 250 IV (10:01)
[2024-01-29] MEDS: RESTASIS 0.05% OPHTHALMIC EMULSION 1 DROPS BOTH EYES (10:01)
[2024-01-29] MEDS: NON-FORMULARY ITEM 1 CAP PO ×2 (10:02→17:10)
[2024-01-29] MEDS: LIDOCAINE 4% PATCH TOPICAL (10:03)
[2024-01-29] MEDS: DILAUDID 1 MG IV (10:42)
--- NOTE | 2024-01-29 15:08 | CM ---
Patient seen bedside, reports no needs to CM at this time. CM offered VN to patient, patient declines. Patient remains on IV antibiotics. CM will continue to follow for all discharge planning needs.
Plan; home, declining VN at this time.
[2024-01-29 15:30] VITALS: BP 109/60
--- NOTE | 2024-01-29 15:57 | PTCARENOTE ---
Assumed care of pt from previous nurse. Pt with some pain to back after ambulation, dilaudid prn provided with positive results. pt call dior is within reach, pt rings devora. will cont to monitor.
--- NOTE | 2024-01-29 15:57 | W.PN.HOSP.TC ---
Today's Communication/Plan
-
dc to home
Assessment / Plan
Assessment / Plan
IMPRESSION:
patient is 68 years old with history of seizure, GI bleeding, hiatal hernia, GERD, small bowel obstruction, mitral valve prolapse, sleep apnea, pulm embolism/DVT status post [place] filter, factor V Leyden deficiency, PVCs, hypertension, sleep
apnea, asthma, restless leg syndrome, Sjogren's disease, osteopororosis who came to the ER with back pain, coughing found to have pneumonia.
PLAN:
Sepsis with associated respiratory distress markedly improved
Pleuritic pain due to pneumonia
started on Cefepime and Zithromax (received 5 doses of Azithromycin, Pulm wishes to continue for 2 more days) will continue.-Allergic to multiple medications including antibiotics. Monitor closely. Added anaerobes coverage flagyl and transition to
oral Augmentin
wbc downtrended.
14.1-->10.1-->10.8-->11.9-->8.8-->8.9
Neg MRSA screen
reaction to vancomycin
CT chest Irregular airspace consolidation within the LEFT lower lobe. Decreased enhancement within the lateral portion of this area of consolidation suspicious for pneumonia with possible necrosis. Small associated loculated pleural effusion. No
evidence for aortic dissection or acute aortic pathology. No evidence for pulmonary embolism.Patulous esophagus with small to moderate hiatal hernia.
strep pneum and legionella urinary antigen-Negative
sputum sample
Passed shallow eval. afebrile x 36hrs
Repeat 01/25 CXR: Small left pleural effusion with associated atelectasis and/or pneumonia, slightly improved.
01/27: Slight interval increase in size of a small left pleural effusion.
Pulm following, discussed with Dr. Segura x2
Acute hypoxic respiratory insufficiency secondary to pneumonia
seen on room air
rm air 95%
Asthma
-Continue inhalers
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
-Continue Xarelto
Restless leg syndrome status post spinal stimulator
-Continue gabapentin
Sjogren's disease
-Continue hydroxychloroquine
Anxiety/depression
-Continue clonazepam
-Continue venlafaxine
constipation: pt on Amitiza 24 mcg bid
will add Colace and prn MOM
Port on 01/25 was without blood return. pt received tPa to allow blood return
Full code
reviewed with in room
DVT prophylaxis�Xarelto
More than 30 minutes spent in discharge including
Final examination of the patient
Summarizing hospital stay
Instructions for continuing care to all relevant caregivers
Preparation of discharge records, prescriptions, and referral forms
Total time spent (in minutes): 45
Anticipated Discharge: Today
Subjective/Interval History
-
Date of Service: January 29, 2024
Is feeling better and cleared by Pulm for dc
Objective Data
-
Labs:
Laboratory Results
01/29/24
07:43
WBC 8.9
Hgb 11.9 L
Hct 36.2 L
Plt Count 369 D
Sodium 139
Potassium 4.2
Chloride 104
Carbon Dioxide 23
BUN 15
Creatinine 0.8
Glucose 91
Calcium 9.0
Vital Signs:
Vital Signs
Temp Pulse Resp BP Pulse Ox
98.0 F 78 14 118/67 93
01/29/24 07:30 01/29/24 07:30 01/29/24 07:30 01/29/24 07:30 01/29/24 08:15
I&O
01/28/24 01/29/24 01/30/24
06:59 06:59 06:59
Intake Total 1919 1620 / 1620
Balance 1919 162 / 1620
Review of Systems
-
History Source: Patient and Coordinated Provider
Constitutional: Denies Fever
EENT: Reports No Symptoms Reported
Respiratory: Reports Cough and Trouble Breathing (better)
Cardiac: Reports No Symptoms
Abdomen/GI: Reports No Symptoms
Musculoskeletal: Reports Joint Pain (post op)
Physical Exam
-
General: Well Developed, Well Nourished and No Apparent Distress
HEENT: Normocephalic, Atraumatic, Moist Mucous Membranes and Other (chest port noted )
Respiratory: Clear to Auscultation (significantly clearer today) and Rhonchi (essentially resolved)
Cardiac: Regular Rhythm and S1/S2
GI: Soft, Nontender, Nondistended and Normal Bowel Sounds
Musculoskeletal: No Edema
Skin: Warm
Neuro: Awake and AO x 3
Psych: Calm
--- NOTE | 2024-01-29 18:04 | PTCARENOTE ---
Pt dc to home via w/c with to car. Port de-accessed, paperwork reviewed and copy provided. dc'd without incident
--- NOTE | 2024-01-30 07:53 | W.DS.TRANS ---
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
-
Discharge Instructions:
Discharge Diagnosis/Procedures LLL Pneumonia
Diet Regular
Activity No strenuous activity
Driving Restrictions Not until seen by your Dr
Bathing Restrictions None
Blood Work CBC, BMP in 2 weeks
Others Tests CXR in 2 weeks
Instructions:
Stand-Alone Forms:
Changes to Home Medications: Yes
Discharge Medications:
DC Medications w/original date entered in [employer]
melatonin 5 mg tablet 10 mg PO HS Sleep 10/11/15
gabapentin 600 mg tablet 600 mg PO DAILY Pain 06/26/16
lubiprostone 24 mcg capsule 24 mcg PO BID 09/17/17
Ca 600 mg-D3 20 mcg-mag oxide 50 bv-Zt-ogoptl-manganese-boron tablet (Calcium 600-D3 Plus (mag-zinc)) 1 ea PO BID Supplement 08/06/19
denosumab 60 mg/mL subcutaneous syringe (Prolia) 60 mg SC [id number] osteoporosis ##0 11/18/19
levalbuterol tartrate 45 mcg/actuation aerosol inhaler 2 puff inhalation R Q4HPRN PRN wheeze 11/18/19
cevimeline 30 mg capsule 1 cap PO TID XEROSTOMA 01/13/23
cholecalciferol (vitamin D3) 25 mcg (1,000 unit) tablet (Vitamin D3) 25 mcg PO DAILY Supplement 01/13/23
clonazepam 1 mg tablet 2 mg PO HS Neurological Condition 01/13/23
cyclosporine 0.05 % eye drops in a dropperette (Restasis) 1 drp BOTH EYES BID Eye Condition 01/13/23
dupilumab 300 mg/2 mL subcutaneous syringe (Dupixent) 300 mg SC Q2W Skin Issues 01/13/23
gabapentin 600 mg tablet 1,200 mg PO HS Pain 01/13/23
hydroxychloroquine 200 mg tablet 200 mg PO DAILY Autoimmune Disorder 01/13/23
mirabegron 50 mg tablet,extended release 24 hr 50 mg PO DAILY Urinary Issue 01/13/23
venlafaxine 150 mg capsule,extended release 24 hr 150 mg PO DAILY Mental Health/Anxiety 01/13/23
bisacodyl 5 mg tablet 5 mg PO HS Constipation 07/10/23
famotidine 40 mg tablet 40 mg PO BID Gastrointestinal Issue 07/10/23
methenamine hippurate 1 gram tablet 1 g PO DAILY Infection 07/10/23
pantoprazole 40 mg tablet,delayed release 40 mg PO BID Gastrointestinal Issue 07/10/23
rivaroxaban 10 mg tablet (Xarelto) 10 mg PO DAILY Blood Clot Prevention/Tx 09/23/23
amoxicillin 875 mg-potassium clavulanate 125 mg tablet 1 tab PO BID #10 tabs 01/29/24
azithromycin 250 mg tablet 250 mg PO DAILY 2 days #2 tabs 01/29/24
tramadol 50 mg tablet 50 mg PO Q6HPRN PRN moderate pain #12 tabs 01/29/24
Home Medication Changes
Augmentin and Azithromycin added
Short term Tramadol added prn pleuritic pain
Pending Results: No
== END 2024-01-29 18:05 | disposition home or self-care (01) | DRG 871 ==
LOC: 4 EAST ACU 12:35
PROVIDERS: Hospitalist; ADMITTING PHYSICIAN General Practice; ATTENDING PHYSICIAN Internal Medicine; CONSULT PHYSICIAN Internal Medicine Critical Care Medicine; EMERGENCY PHYSICIAN Emergency Medicine; FAMILY PHYSICIAN Family Medicine
DX: A41.9 Sepsis, unspecified organism (principal); J18.9 Pneumonia, unspecified organism; J85.0 Gangrene and necrosis of lung; J69.0 Pneumonitis due to inhalation of food and vomit; D68.51 Activated protein C resistance; R65.20 Severe sepsis without septic shock; J45.909 Unspecified asthma, uncomplicated; G25.81 Restless legs syndrome; M35.00 Sjogren syndrome, unspecified; F32.A Depression, unspecified; I10 Essential (primary) hypertension; I34.1 Nonrheumatic mitral (valve) prolapse; Z95.828 Presence of other vascular implants and grafts; F41.9 Anxiety disorder, unspecified; K44.9 Diaphragmatic hernia without obstruction or gangrene; K21.9 Gastro-esophageal reflux disease without esophagitis; M81.0 Age-related osteoporosis without current pathological fracture; G47.33 Obstructive sleep apnea (adult) (pediatric); R06.03 Acute respiratory distress; Z79.01 Long term (current) use of anticoagulants; Z79.899 Other long term (current) drug therapy; Z86.73 Personal history of transient ischemic attack (TIA), and cerebral infarction without residual deficits; Z87.19 Personal history of other diseases of the digestive system; Z86.711 Personal history of pulmonary embolism; Z86.718 Personal history of other venous thrombosis and embolism; Z82.49 Family history of ischemic heart disease and other diseases of the circulatory system
CPT/HCPCS: 32555; 71046; 71275; 74174; 76604; 80048; 80053; 83735; 83880; 84484; 85025; 85027; 87070; 87449; 87899; 92610; 93005; 94640; 94760; 96365; 96375; 99285; J2997; Q9967

== ENCOUNTER → 2024-02-04 10:47 | Outpatient (REF) | payer MEDICARE, SELFPAY ==
[2024-02-04 11:25] LABS: % Basophils 0.6 % (0-2); % Eosinophils 2.2 % (0-6); % Immature Granulocytes 0.7 % (0-0.5); % Lymphocytes 15.5 % (20.5-51.1); % Monocytes 7.6 % (1.7-9.3); % Neutrophils 73.4 % (42.2-75.2); Absolute Basophils 0.1 10^3/uL (0-0.2); Absolute Eosinophils 0.2 10^3/uL (0-0.7); Absolute Immature Granulocytes 0.1 10^3/uL (0-0.05); Absolute Lymphocytes 1.4 10^3/uL (1.2-3.4); Absolute Monocytes 0.7 10^3/uL (0.1-0.6); Absolute Neutrophils 6.7 10^3/uL (1.4-6.5); Hematocrit 38.7 % (37.0-47.0); Hemoglobin 12.9 g/dL (12.0-16.0); Mean Corp Hgb Conc. 33.3 g/dL (33.0-37.0); Mean Corpuscular Hgb 31.4 pg (27.0-31.0); Mean Corpuscular Volume 94.2 fL (81.0-99.0); Mean Platelet Volume 9.2 fL (7.4-10.4); Nucleated Red Blood Cells % 0 %; Platelet Count 411 10^3/uL (130-400); Red Blood Cell Count 4.11 10^6/uL (4.20-5.40); White Blood Cell Count 9.1 10^3/uL (4.8-10.8)
[2024-02-04 12:10] LABS: ALT (SGPT) 33 U/L (0-35); AST (SGOT) 34 U/L (14-36); Albumin 4.1 g/dl (3.5-5.0); Alkaline Phosphatase 87 U/L (38-126); Blood Urea Nitrogen 11 mg/dl (7-17); Calcium 9.2 mg/dl (8.4-10.2); Carbon Dioxide 23 mmol/L (22-30); Chloride 107 mmol/L (98-107); Glucose 104 mg/dl (70-99); Potassium 3.7 mmol/L (3.5-5.1); Sodium 139 mmol/L (135-145); Total Bilirubin 0.5 mg/dl (0.2-1.3); Total Protein 7.1 g/dl (6.3-8.2); eGFR > 60.00
== END ==
LOC: RAD 10:47
PROVIDERS: ATTENDING PHYSICIAN Nurse Practitioner Primary Care
DX: J18.9 Pneumonia, unspecified organism (principal); J90 Pleural effusion, not elsewhere classified; J45.20 Mild intermittent asthma, uncomplicated; K21.9 Gastro-esophageal reflux disease without esophagitis
CPT/HCPCS: 36415; 71046; 80053; 85025

== ENCOUNTER 2024-02-10 10:32 | Emergency (ER) | payer MEDICARE, SELFPAY ==
[2024-02-10] VITALS (7 sets, daily range): BP systolic 115–146; BP diastolic 59–93
--- NOTE | 2024-02-10 11:10 | ED.GENMED ---
History of Present Illness
General
Chief Complaint: Pneumonia Symptoms
Source: patient
Exam Limitations: none
Time Seen by Provider: 02/10/24 11:00
Nursing documentation reviewed up to this point in time: agreed with
History of Present Illness
History of Present Illness:
Patient discharged from the hospital 10 days ago after being treated for left-sided pneumonia, presents to ED secondary to persistent left-sided chest pain as well as 'not feeling well', since being discharged home. Patient was prescribed tramadol
at time of discharge, which is not helping with her pain. Denies fever or chills. Denied nausea, vomiting, or diarrhea. Denies new trauma. Denies shortness of breath. Patient states that she has not been able to sleep at nighttime secondary to
pain. Patient has follow-up appointment with hydrometer tester in 2 days.
Past History
Past History
ED Past Medical History: Arrthythmia (PVC's), Asthma, GERD, Other (Pulmonary embolism, DVT, factor V Leiden deficiency , Bowel obstructions, PNA, Hiatal hernia, GI bleeding, C. Diff, anemia) and Other (Sjogren's, osteoporosis, sleep apnea)
ED Past Surgical History: Appendectomy, Bowel resection (Multiple episodes of bowel obstruction), Cholecystectomy, Gynecological (Hysterectomy Total), Orthopedic (R shoulder surgery) and Other ([place] filter)
Social History
Tobacco: Non-smoker
Alcohol: Occasional
Drug: None
Personal:
Living: with family
Employment: Employed
Family History
Family History: Other (Diabetes, coronary disease)
Review of Systems
Review of Systems
Allergies reviewed?: Yes
All Other Systems: ROS reviewed and negative except as documented in HPI and ROS
Constitutional: Reports no symptoms; Denies fever or chills
Respiratory: Reports no symptoms
Cardiac: Reports no symptoms
ABD/GI: Reports no symptoms
: Reports no symptoms
Musculoskeletal: Reports other (rib pain)
Skin: Reports no symptoms
Neurological: Reports no symptoms
Phy Exam
Physical Exam
Physical Exam:
Physical Exam
General: no apparent distress, not acutely ill. afebrile
Head: nc/at. eomi
Neck: supple. no meningeal signs.
Heart: s1/s2 regular rate and rhythm, no murmur. equal radial pulses.
Lungs: no acute respiratory distress. crackles noted over left lower base. mild tenderness to palpation over left lateral chest wall, at level of rib #8-10, without ecchymosis/swelling
Abdomen: normal bowel sounds. not tender.
Neuro: alert and oriented. no focal neurological deficits
Skin: no rash
Psychiatric: well kept. interactive and cooperative
Extremities: no edema. no calf tenderness.
Course
Orders/Labs/Results
Orders:
Orders
02/10/24 10:47
ECG [Electrocardiogram (*1)] Urgent
Reason for Study: Chest Pain
EKG- Treatment ONCE
02/10/24 11:06
HYDROmorphone [Dilaudid] 1 mg IV NOW STA
CR Chest - 2 Views Urgent
Comment:
Reason For Exam: left sided CP with cough, hx pneumonia/effusion
02/10/24 11:32
Basic Metabolic Panel Urgent
Complete Blood Count/With Diff Urgent
Magnesium Urgent
02/10/24 11:55
0.9% Sodium Chloride 500 ml [Nss] 500 ml IV BOLUS
02/10/24 12:00
COVID-19 Antigen Urgent
Source: Nasal Swab
02/10/24 13:45
Heparin Pf [Heparin Lock Flush] 500 unit IV PER PROTOCOL
02/10/24 14:45
HYDROmorphone [Dilaudid] 1 mg IV NOW STA
Ketorolac [Toradol] 15 mg IV NOW STA
Abnormal Lab Results
02/10/24
11:32
RBC 4.00 L 10^6/uL
(4.20-5.40)
MCH 31.3 H pg
(27.0-31.0)
Lymphocytes % 18.5 L %
(20.5-51.1)
Eosinophils % 7.0 H %
(0-6)
Carbon Dioxide 21 L mmol/L
(22-30)
02/10/24 11:32
02/10/24 11:32
Vital Signs
Initial and Last Documented VS:
Initial Vital Signs
Temp Pulse Resp BP Pulse Ox
98.4 F 108 22 146/93 95
02/10/24 10:42 02/10/24 10:42 02/10/24 10:42 02/10/24 10:42 02/10/24 10:42
Last Documented Vital Signs
Temp Pulse Resp BP Pulse Ox
98.4 F 108 22 129/63 94
02/10/24 10:42 02/10/24 10:42 02/10/24 10:42 02/10/24 16:00 02/10/24 16:10
MDM/Problems Addressed
MDM/Problems Addressed:
Pt with mild improvement in symptoms after treatment and remains hemodynamically stable. Pt will be discharged home to the care of her spouse, with recommendation to f/u with her hydrometer tester in 2 days.
*Critical Care Note
Total Time (30-74mins, 75-104mins- exclusive of procedures): Not Applicable
ED Attending Note
-
Portions of this chart may have been created with voice recognition software.� Occasional wrong word or��sound alike� substitutions may have occurred due to the inherent limitations of voice recognition software.
Discharge Plan
Departure
Patient Disposition: Home (Routine Discharge)
Date of Disposition: 02/10/24
Time of Disposition: 16:06
Patient with high blood pressure during this ER visit?: Yes
Discharge Problem:
Chest pain, Pleural effusion
Instructions: Chest pain, Pleural effusion - Discharge instructions
Prescriptions:
New
hydromorphone [Dilaudid] 4 mg tablet
4 mg PO Q6H PRN (Reason: Pain) Qty: 4 0RF
Rx Instructions:
Please take 1/2 tab by mouth every 6-8hrs, as needed for severe pain.
No Action
melatonin 5 MG tablet
10 mg PO HS
gabapentin 600 MG tablet
600 mg PO DAILY
lubiprostone 24 MCG capsule
24 mcg PO BID 0RF
Ca-D3-mag ls-nojv-rsi-lexie-bor [Calcium 600-D3 Plus (mag-zinc)] 1 EACH tablet
1 ea PO BID
Prolia 60 mg/mL Syringe
60 mg SC [id number] Qty: 0
levalbuterol tartrate 1 PUFF HFA aerosol inhaler
2 puff inhalation R Q4HPRN PRN (Reason: wheeze)
gabapentin 600 mg Tablet
1,200 mg PO HS
venlafaxine 150 mg Capsule,Extended Release 24hr
150 mg PO DAILY
cevimeline 30 mg Capsule
1 cap PO TID
hydroxychloroquine 200 mg Tablet
200 mg PO DAILY
cyclosporine [Restasis] 0.05 % Dropperette
1 drp BOTH EYES BID
cholecalciferol (vitamin D3) [Vitamin D3] 25 mcg (1,000 unit) Tablet
25 mcg PO DAILY
mirabegron 50 mg Tablet Extended Release 24 Hr
50 mg PO DAILY
Dupixent Syringe 300 mg/2 mL Syringe
300 mg SC Q2W
clonazepam 1 MG tablet
2 mg PO HS
bisacodyl 5 mg Tablet
5 mg PO HS
methenamine hippurate 1 GRAM tablet
1 g PO DAILY
pantoprazole 40 MG tablet,delayed release (DR/EC)
40 mg PO BID
famotidine 40 mg Tablet
40 mg PO BID
Xarelto 10 mg Tablet
10 mg PO DAILY
tramadol 50 mg Tablet
50 mg PO Q6HPRN PRN (Reason: moderate pain) Qty: 12 0RF
amoxicillin-pot clavulanate 875-125 mg tablet
1 tab PO BID Qty: 10 0RF
azithromycin 250 mg tablet
250 mg PO DAILY 2 Days Qty: 2 0RF
Referrals:
Wilma Shirley DO [Family Provider] -
Activity Restrictions/Additional Instructions:
As discussed, please follow-up with your hydrometer tester on , as scheduled, for reevaluation. Your prescriptiion has been sent electronically to [facility] in [place].
Interventions
Interventions:
*Risk Screen - Suicide Last Done: 02/10/24 10:43
*General Assessment Last Done: 02/10/24 10:43
*Neglect/Abuse Screening Last Done: 02/10/24 10:43
ED- Fall Risk Assessment Last Done: 02/10/24 12:07
*Nursing Disposition Last Done: 02/10/24 16:23
ED- Cardiac Assessment Last Done: 02/10/24 12:07
Discharge Date and Time
Discharge Date/Time: 02/10/24 16:39
Print Language: SINHALA
[2024-02-10] MEDS: DILAUDID 1 MG IV ×2 (11:53→15:01)
[2024-02-10] MEDS: NSS 500 IV (11:55)
[2024-02-10 11:58] LABS: % Basophils 0.8 % (0-2); % Immature Granulocytes 0.2 % (0-0.5); % Lymphocytes 18.5 % (20.5-51.1); % Neutrophils 67.5 % (42.2-75.2); Absolute Basophils 0.1 10^3/uL (0-0.2); Absolute Eosinophils 0.6 10^3/uL (0-0.7); Absolute Lymphocytes 1.6 10^3/uL (1.2-3.4); Absolute Monocytes 0.5 10^3/uL (0.1-0.6); Absolute Neutrophils 5.9 10^3/uL (1.4-6.5); Hematocrit 37.5 % (37.0-47.0); Hemoglobin 12.5 g/dL (12.0-16.0); Mean Corp Hgb Conc. 33.3 g/dL (33.0-37.0); Mean Corpuscular Hgb 31.3 pg (27.0-31.0); Mean Corpuscular Volume 93.8 fL (81.0-99.0); Mean Platelet Volume 9.6 fL (7.4-10.4); Nucleated Red Blood Cells % 0 %; Platelet Count 320 10^3/uL (130-400); White Blood Cell Count 8.7 10^3/uL (4.8-10.8)
[2024-02-10 12:39] LABS: COVID-19 Antigen Negative (Negative)
[2024-02-10 12:56] LABS: Blood Urea Nitrogen 13 mg/dl (7-17); Calcium 9.3 mg/dl (8.4-10.2); Carbon Dioxide 21 mmol/L (22-30); Chloride 107 mmol/L (98-107); Glucose 95 mg/dl (70-99); Magnesium 1.8 mg/dl (1.6-2.3); Potassium 3.9 mmol/L (3.5-5.1); Sodium 138 mmol/L (135-145); eGFR > 60.00
== END 2024-02-10 16:39 | disposition home or self-care (01) ==
LOC: EMR 10:32
PROVIDERS: EMERGENCY PHYSICIAN Emergency Medicine; FAMILY PHYSICIAN Family Medicine
DX: J90 Pleural effusion, not elsewhere classified (principal); R07.89 Other chest pain; R03.0 Elevated blood-pressure reading, without diagnosis of hypertension
CPT/HCPCS: 99285; 96374; 96375; 96361 ×3; 96376; 71046; 80048; 83735; 85025; 87811; 93005

== ENCOUNTER → 2024-02-12 11:15 | Outpatient (REF) | payer MEDICARE, SELFPAY ==
[2024-02-12 14:37] LABS: INR 1.92; PT 22.1 Sec (11.4-14.6)
[2024-02-12 15:13] LABS: APTT > 200 Sec (23.4-35.0)
== END ==
LOC: REG 11:15
PROVIDERS: ATTENDING PHYSICIAN Nurse Practitioner Adult Health; FAMILY PHYSICIAN Family Medicine
DX: Z01.812 Encounter for preprocedural laboratory examination (principal)
CPT/HCPCS: 36415; 85610; 85730

== ENCOUNTER → 2024-02-12 16:07 | Outpatient (REF) | payer MEDICARE, SELFPAY | LOC: RAD 16:07 | PROVIDERS: ATTENDING PHYSICIAN Nurse Practitioner Adult Health | DX: J18.9 Pneumonia, unspecified organism (principal) | CPT/HCPCS: 71250 ==

== ENCOUNTER 2024-02-16 06:33 | Day surgery (SDC) | payer MEDICARE, SELFPAY ==
[2024-02-16] VITALS (9 sets, daily range): BP systolic 102–126; BP diastolic 53–66; BMI 25.7
[2024-02-16 16:30] LABS: BAL Lining Cells 61 %; BAL Lymphocytes 37 %; BAL Neutrophils 2 %; Brochalveolar Lavage Character Hazy (Clear); Brochalveolar Lavage Color Pink; Brochalveolar Lavage Volume 5 ml; Brochalveolar Lavage WBC 8250 cells/ml
== END 2024-02-16 13:30 | disposition home or self-care (01) ==
LOC: SDS 06:33
PROVIDERS: ATTENDING PHYSICIAN Internal Medicine Critical Care Medicine
DX: R91.8 Other nonspecific abnormal finding of lung field (principal); R91.1 Solitary pulmonary nodule; J69.0 Pneumonitis due to inhalation of food and vomit
CPT/HCPCS: 31629; 31628; 31624; 31623; 31627; 31654; 88173; 88305; 71045; 76000; 87015; 87070; 87102; 87116; 87205; 88112; 88333; 89051; 94640; C1887

== ENCOUNTER 2024-03-03 08:55 | Outpatient (RCR) | payer MEDICARE, SELFPAY | END 2024-03-03 23:59 | disposition home or self-care (01) | LOC: RPT 08:55 | PROVIDERS: ATTENDING PHYSICIAN Specialist; FAMILY PHYSICIAN Family Medicine | DX: R39.81 Functional urinary incontinence (principal); Z73.6 Limitation of activities due to disability | CPT/HCPCS: 97110; 97112 ==

== ENCOUNTER → 2024-03-09 12:26 | Outpatient (REF) | payer MEDICARE, SELFPAY | LOC: RAD 12:26 | PROVIDERS: ATTENDING PHYSICIAN Internal Medicine Critical Care Medicine; FAMILY PHYSICIAN Family Medicine | DX: J18.9 Pneumonia, unspecified organism (principal) | CPT/HCPCS: 71046 ==

== ENCOUNTER → 2024-03-11 08:14 | Outpatient (REF) | payer MEDICARE, SELFPAY | LOC: RST 08:14 | PROVIDERS: ATTENDING PHYSICIAN Internal Medicine Critical Care Medicine; FAMILY PHYSICIAN Family Medicine; REFERRING PHYSICIAN Internal Medicine Gastroenterology | DX: J18.9 Pneumonia, unspecified organism (principal) | CPT/HCPCS: 74230; 92611 ==

== ENCOUNTER → 2024-03-12 15:57 | Outpatient (REF) | payer MEDICARE, SELFPAY ==
[2024-03-12 09:42] LABS: % Basophils 0.5 % (0-2); % Eosinophils 4.2 % (0-6); % Immature Granulocytes 0.3 % (0-0.5); % Lymphocytes 32.3 % (20.5-51.1); % Monocytes 8.6 % (1.7-9.3); % Neutrophils 54.1 % (42.2-75.2); Absolute Eosinophils 0.3 10^3/uL (0-0.7); Absolute Lymphocytes 1.9 10^3/uL (1.2-3.4); Absolute Monocytes 0.5 10^3/uL (0.1-0.6); Absolute Neutrophils 3.2 10^3/uL (1.4-6.5); Hematocrit 38.8 % (37.0-47.0); Hemoglobin 13.1 g/dL (12.0-16.0); Mean Corp Hgb Conc. 33.8 g/dL (33.0-37.0); Mean Corpuscular Hgb 31.6 pg (27.0-31.0); Mean Corpuscular Volume 93.7 fL (81.0-99.0); Nucleated Red Blood Cells % 0 %; Platelet Count 284 10^3/uL (130-400); Red Blood Cell Count 4.14 10^6/uL (4.20-5.40); Red Cell Dist. Width 14.6 % (11.5-14.5); Reticulocyte Count 1.5 % (0.4-2.8); White Blood Cell Count 5.9 10^3/uL (4.8-10.8)
[2024-03-12 09:51] LABS: Iron 60 ug/dl (37-170)
[2024-03-12 10:00] LABS: Percent Saturation 25 % (20-50); Total Iron Binding Capacity 240 ug/dl (265-497)
== END ==
LOC: OIDL 15:57
PROVIDERS: ATTENDING PHYSICIAN Internal Medicine Hematology & Oncology
DX: D68.52 Prothrombin gene mutation (principal)
CPT/HCPCS: 82728; 82784; 83521; 83540; 83550; 84155; 84165; 85025; 85045; 86334

== ENCOUNTER 2024-03-24 09:46 | Outpatient (RCR) | payer MEDICARE, SELFPAY | END 2024-03-24 11:44 | disposition home or self-care (01) | LOC: RPT 09:46 | PROVIDERS: ATTENDING PHYSICIAN Specialist; FAMILY PHYSICIAN Family Medicine | DX: R39.81 Functional urinary incontinence (principal); Z73.6 Limitation of activities due to disability | CPT/HCPCS: 97110; 97112 ==

== ENCOUNTER 2024-03-31 06:17 | Day surgery (SDC) | payer MEDICARE, SELFPAY ==
[2024-03-31 07:05] VITALS: BP 117/66
[2024-03-31 07:08] VITALS: BMI 26.0
[2024-03-31 07:09] VITALS: BMI 26.0
[2024-03-31 09:00] VITALS: BP 123/53
[2024-03-31 09:08] VITALS: BP 119/71
[2024-03-31 09:15] VITALS: BP 113/73
[2024-03-31 09:21] VITALS: BP 120/65
== END 2024-03-31 09:35 | disposition home or self-care (01) ==
LOC: SDS 06:17
PROVIDERS: ATTENDING PHYSICIAN Internal Medicine Gastroenterology
DX: D12.2 Benign neoplasm of ascending colon (principal); Z86.010 Personal history of colon polyps; K64.0 First degree hemorrhoids; K63.89 Other specified diseases of intestine; Z98.890 Other specified postprocedural states
CPT/HCPCS: 45380; 45388; 88305

== ENCOUNTER → 2024-04-16 12:12 | Outpatient (REF) | payer MEDICARE, SELFPAY ==
[2024-04-16 15:06] LABS: Albumin 4.3 g/dl (3.5-5.0); Blood Urea Nitrogen 14 mg/dl (7-17); Calcium 8.6 mg/dl (8.4-10.2); Carbon Dioxide 20 mmol/L (22-30); Chloride 106 mmol/L (98-107); Glucose 91 mg/dl (70-99); Phosphorus 3.5 mg/dl (2.5-4.5); Sodium 140 mmol/L (135-145); eGFR > 60.00
[2024-04-19 08:27] LABS: 24 Hour Urine Total Volume Random mL; Urine Collection Length Random hr; Urine Free Lambda Light Chains 10.89 mg/L (0.00-3.79)
== END ==
LOC: REG 12:12
PROVIDERS: ATTENDING PHYSICIAN Internal Medicine; FAMILY PHYSICIAN Family Medicine
DX: R80.9 Proteinuria, unspecified (principal)
CPT/HCPCS: 36415; 80069; 83521; 84156; 86335

== ENCOUNTER → 2024-04-27 06:58 | Outpatient (REF) | payer MEDICARE, SELFPAY ==
[2024-04-27 09:28] LABS: Protein/creatinine Ratio 0.1; Urine Protein 11 mg/dl
[2024-04-30 09:14] LABS: Albumin 3.95 g/dL (3.75-5.01); Alpha 1 Globulin 0.29 g/dL (0.19-0.46); Free Kappa Light Chains,Quant 34.29 mg/L (3.30-19.40); Free Lambda Light Chains,Quant 17.82 mg/L (5.71-26.30); IgA 202 mg/dL (68-408); IgG 818 mg/dL (768-1632); IgM 122 mg/dL (35-263); Immunofixation Electrophoresis IFE Done; Kappa/Lambda Fr Light Ratio 1.92 (0.26-1.65); Total Protein-Electrophoresis 6.7 g/dL (6.3-8.2)
== END ==
LOC: RAD 06:58
PROVIDERS: ATTENDING PHYSICIAN Internal Medicine Critical Care Medicine; FAMILY PHYSICIAN Family Medicine; REFERRING PHYSICIAN Internal Medicine
DX: J18.9 Pneumonia, unspecified organism (principal); E78.2 Mixed hyperlipidemia; D64.9 Anemia, unspecified; I10 Essential (primary) hypertension; R80.9 Proteinuria, unspecified; R76.8 Other specified abnormal immunological findings in serum
CPT/HCPCS: 36415; 71046; 71250; 82570; 82784; 83521; 84155; 84156; 84165; 86334

== ENCOUNTER → 2024-04-30 12:28 | Outpatient (REF) | payer MEDICARE, SELFPAY ==
[2024-04-30 13:43] LABS: 24 Hour Urine Total Volume 1850 ml
== END ==
LOC: REG 12:28
PROVIDERS: ATTENDING PHYSICIAN Internal Medicine; FAMILY PHYSICIAN Family Medicine
DX: R80.9 Proteinuria, unspecified (principal)
CPT/HCPCS: 81050; 82570

== ENCOUNTER → 2024-06-08 09:14 | Outpatient (REF) | payer MEDICARE, SELFPAY ==
[2024-06-08 16:21] LABS: Urine Albumin 1+ (Neg - Trace); Urine Bilirubin Negative (Negative); Urine Character Very Cloudy (Clear); Urine Color Yellow; Urine Glucose Negative (Negative); Urine Ketone Negative (Negative); Urine Leukocyte 2+ (Negative); Urine Nitrite Negative (Negative); Urine Occult Blood 3+ (Negative); Urine Specific Gravity 1.025 (<1.030); Urine Urobilinogen Negative (Neg - 1+)
[2024-06-08 16:41] LABS: Urine Squamous Cell 0-2 /LPF (Few)
[2024-06-08 16:42] LABS: Urine Bacteria Many (Negative); Urine White Cell 60-70 /HPF (0-5)
== END ==
LOC: CLAB 09:14
PROVIDERS: ATTENDING PHYSICIAN Specialist
DX: N39.0 Urinary tract infection, site not specified (principal)
CPT/HCPCS: 81003; 81015; 87077; 87086

== ENCOUNTER 2024-06-16 11:11 | Inpatient (IN) | payer MEDICARE, SELFPAY ==
[2024-06-15 23:32] VITALS: BMI 26.4
[2024-06-15 23:35] VITALS: BP 122/83
[2024-06-16] VITALS (16 sets, daily range): BP systolic 90–125; BP diastolic 51–91
--- NOTE | 2024-06-16 02:23 | EDRN ---
Addendum entered by Peg William RN 06/16/24 03:11:
Pt. agreeable at this time for this RN to attempt u/s guided IV access x 1. RN able to insert IV/draw labs via ultrasound w.o difficulty.
Original Note:
Assumed care of pt. in rm. 2. Pt. has ordered lab work;however, pt. if refusing peripheral IV attempts. Pt. states, 'I have two ports, if you want blood from me you are going to have to call the IV team so they can access my port'. RN called IV
team. No staff available from IV team here currently who are able to access port. This RN explained to pt. that she is able to do ultrasound guided IV's and offered to attempt access this way, pt. currently refusing.
[2024-06-16 03:18] LABS: % Basophils 0.3 % (0-2); % Eosinophils 0.3 % (0-6); % Immature Granulocytes 0.3 % (0-0.5); % Lymphocytes 15.1 % (20.5-51.1); % Monocytes 8.6 % (1.7-9.3); % Neutrophils 75.4 % (42.2-75.2); Absolute Monocytes 0.6 10^3/uL (0.1-0.6); Hematocrit 38.6 % (37.0-47.0); Hemoglobin 12.9 g/dL (12.0-16.0); Mean Corp Hgb Conc. 33.4 g/dL (33.0-37.0); Mean Corpuscular Hgb 31.2 pg (27.0-31.0); Mean Corpuscular Volume 93.2 fL (81.0-99.0); Mean Platelet Volume 9.8 fL (7.4-10.4); Nucleated Red Blood Cells % 0 %; Platelet Count 211 10^3/uL (130-400); Red Blood Cell Count 4.14 10^6/uL (4.20-5.40); Red Cell Dist. Width 13.5 % (11.5-14.5); White Blood Cell Count 6.6 10^3/uL (4.8-10.8)
[2024-06-16 03:40] LABS: ALT (SGPT) 19 U/L (0-35); AST (SGOT) 22 U/L (14-36); Albumin 3.7 g/dl (3.5-5.0); Alkaline Phosphatase 57 U/L (38-126); Blood Urea Nitrogen 7 mg/dl (7-17); Calcium 6.9 mg/dl (8.4-10.2); Carbon Dioxide 21 mmol/L (22-30); Chloride 109 mmol/L (98-107); Estimated Creatinine Clearance 58 ml/min; Glucose 104 mg/dl (70-99); Potassium 3.2 mmol/L (3.5-5.1); Sodium 141 mmol/L (135-145); Total Bilirubin 0.5 mg/dl (0.2-1.3); Total Protein 6.3 g/dl (6.3-8.2); eGFR > 60.00
--- NOTE | 2024-06-16 03:50 | ED.GENMED ---
History of Present Illness
<SANDRA Larry - Last Filed: 06/16/24 06:02>
General
Chief Complaint: Abdominal Symptoms
Source: patient
Time Seen by Provider: 06/16/24 03:36
Nursing documentation reviewed up to this point in time: agreed with
History of Present Illness
History of Present Illness:
Pt is a 68 yo F who presents to the emergency department for N/V/D and abdominal cramping. Pt states that the symptoms began yesterday and have continued. Pt reports that she was on Augmentin x 5 days for a UTI. She states that she completed the
antibiotic and that the symptoms began towards the end of the antibiotic duration. She states that she is unable to keep any food or liquid down. She reports that nothing makes her symptoms better. Pt also reports having abdominal cramping. She
states that it is diffuse across her abdomen and does not radiate. Pt reports that yesterday started coughing and coughed up green mucus. Pt denies hematemesis, hematochezia, dysuria, burning with urination, chills, headache, chest pain. She denies
sick contacts.
Past History
<SANDRA Larry - Last Filed: 06/16/24 06:02>
Past History
ED Past Medical History: Arrthythmia (PVC's), Asthma, GERD, Other (Pulmonary embolism, DVT, factor V Leiden deficiency , Bowel obstructions, PNA, Hiatal hernia, GI bleeding, C. Diff, anemia) and Other (Sjogren's, osteoporosis, sleep apnea)
ED Past Surgical History: Appendectomy, Bowel resection (Multiple episodes of bowel obstruction), Cholecystectomy, Gynecological (Hysterectomy Total), Orthopedic (R shoulder surgery) and Other ([place] filter)
Social History
Tobacco: Non-smoker
Alcohol: Occasional
Drug: None
Personal:
Living: with family
Employment: Employed
Family History
Family History: Other (Diabetes, coronary disease)
Review of Systems
<Rita Henry [facility] - Last Filed: 06/16/24 06:02>
Review of Systems
Allergies reviewed?: Yes
Constitutional: Reports no symptoms
EENT: Reports no symptoms
Respiratory: Reports cough
Cardiac: Reports no symptoms
ABD/GI: Reports abdominal pain, nausea, vomiting and diarrhea
: Reports no symptoms
Neurological: Reports no symptoms
Phy Exam
<Rita Henry [facility] - Last Filed: 06/16/24 06:02>
General Physical Exam
General Presentation: well appearing and no apparent distress
General age: appears stated age
General Skin: warm
General Habitus: normal
General Mental: alert
General Hydration: appears well hydrated
Cardiovascular Exam
Cardiovascular Exam: regular rate/rhythm
Pulmonary Exam
Pulmonary Exam: lungs clear
Gastrointestinal Exam
Gastrointestinal Exam: normal bowel sounds, soft and distended
Palpation: left upper quadrant: Minimal tenderness, left lower quadrant: Minimal tenderness, right upper quadrant: Minimal tenderness and right lower quadrant: Minimal tenderness
Course
<Rita Henry [facility] - Last Filed: 06/16/24 06:02>
Orders/Labs/Results
Orders:
Orders
06/16/24 03:07
CBC/With Diff [Complete Blood Count/With Diff] Urgent
CMP [Comprehensive Metabolic Panel] Urgent
06/16/24 03:17
Urinalysis Reflex To Culture Urgent
06/16/24 04:00
STOOL [C difficile Antigen & Toxins] Urgent
RODNEY Source: Feces/Stool
Specimen Description:
Stool Culture Urgent
RODNEY Source: Feces/Stool
Specimen Description:
Stool For WBC Urgent
RODNEY Source: Feces/Stool
Specimen Description:
06/16/24 04:57
0.9% Sodium Chloride 1000 ml [Nss] 1,000 ml IV BOLUS
06/16/24 06:01
Ondansetron Injectable [Zofran] 4 mg IV NOW STA
Abnormal Lab Results
06/16/24
03:07
RBC 4.14 L 10^6/uL
(4.20-5.40)
MCH 31.2 H pg
(27.0-31.0)
Absolute Lymphs (auto) 1.0 L 10^3/uL
(1.2-3.4)
Neutrophils % 75.4 H %
(42.2-75.2)
Lymphocytes % 15.1 L %
(20.5-51.1)
Potassium 3.2 L mmol/L
(3.5-5.1)
Chloride 109 H mmol/L
(98-107)
Carbon Dioxide 21 L mmol/L
(22-30)
Glucose 104 H mg/dl
(70-99)
Calcium 6.9 L* mg/dl
(8.4-10.2)
06/16/24 03:07
06/16/24 03:07
Vital Signs
Initial and Last Documented VS:
Initial Vital Signs
Temp Pulse Resp BP Pulse Ox
97.9 F 98 18 122/83 100
06/15/24 23:35 06/15/24 23:35 06/15/24 23:35 06/15/24 23:35 06/15/24 23:35
Last Documented Vital Signs
Temp Pulse Resp BP Pulse Ox
97.9 F 78 22 118/62 95
06/15/24 23:35 06/16/24 04:30 06/16/24 04:30 06/16/24 04:00 06/16/24 04:30
Jamilalt;Patrick Washington, - Last Filed: 06/16/24 06:05>
Orders/Labs/Results
Orders:
Orders
06/16/24 03:07
CBC/With Diff [Complete Blood Count/With Diff] Urgent
CMP [Comprehensive Metabolic Panel] Urgent
06/16/24 03:17
Urinalysis Reflex To Culture Urgent
06/16/24 04:00
STOOL [C difficile Antigen & Toxins] Urgent
RODNEY Source: Feces/Stool
Specimen Description:
Stool Culture Urgent
RODNEY Source: Feces/Stool
Specimen Description:
Stool For WBC Urgent
RODNEY Source: Feces/Stool
Specimen Description:
06/16/24 04:57
0.9% Sodium Chloride 1000 ml [Nss] 1,000 ml IV BOLUS
06/16/24 06:01
Ondansetron Injectable [Zofran] 4 mg IV NOW STA
Abnormal Lab Results
06/16/24
03:07
RBC 4.14 L 10^6/uL
(4.20-5.40)
MCH 31.2 H pg
(27.0-31.0)
Absolute Lymphs (auto) 1.0 L 10^3/uL
(1.2-3.4)
Neutrophils % 75.4 H %
(42.2-75.2)
Lymphocytes % 15.1 L %
(20.5-51.1)
Potassium 3.2 L mmol/L
(3.5-5.1)
Chloride 109 H mmol/L
(98-107)
Carbon Dioxide 21 L mmol/L
(22-30)
Glucose 104 H mg/dl
(70-99)
Calcium 6.9 L* mg/dl
(8.4-10.2)
06/16/24 03:07
06/16/24 03:07
Vital Signs
Initial and Last Documented VS:
Initial Vital Signs
Temp Pulse Resp BP Pulse Ox
97.9 F 98 18 122/83 100
06/15/24 23:35 06/15/24 23:35 06/15/24 23:35 06/15/24 23:35 06/15/24 23:35
Last Documented Vital Signs
Temp Pulse Resp BP Pulse Ox
97.9 F 78 22 118/62 95
06/15/24 23:35 06/16/24 04:30 06/16/24 04:30 06/16/24 04:00 06/16/24 04:30
<SANDRA Larry - Last Filed: 06/16/24 06:02>
MDM/Problems Addressed
Differential Diagnosis Includes:
C. diff, gastroenteritis
<SANDRA Larry - Last Filed: 06/16/24 06:02>
*Critical Care Note
Total Time (30-74mins, 75-104mins- exclusive of procedures): Not Applicable
ED Attending Note
<SANDRA Larry - Last Filed: 06/16/24 06:02>
-
Portions of this chart may have been created with voice recognition software.� Occasional wrong word or��sound alike� substitutions may have occurred due to the inherent limitations of voice recognition software.
<Patrick Washington DO - Last Filed: 06/16/24 06:05>
ED Attending Note
Patient seen and examined by attending physician: Yes
I performed the substantive portion of visit, reviewed & personally made and approve the management plan that is documented in note by myself or EDGAR.: Yes
ED Attending Note:
This a pleasant 68-year-old female presents to the emergency department for nausea vomiting and diarrhea. She states that she has been on antibiotics for treatment of her urinary tract infection. She has had 4 to 5 days worth of antibiotics.
Patient came to the emergency department because of her abdominal cramping. She states that its diffuse across her abdomen without radiation. Patient denies chest pain or shortness of breath. Reports no sick contacts. She came to the emergency
department tonight because she could not keep any water or food down. Patient was seen in conjunction with the PA student. I have reviewed and agree with the history and treatment plan presented. On my independent physical exam, patient is awake,
alert, and oriented x3, moderate acute distress. Heart is regular rate and rhythm. Lungs are clear to auscultation bilaterally without wheezes rales or rhonchi present. Soft and nontender to deep or superficial palpation. Skin is warm and dry.
Patient moves all 4 extremities. Patient to get a CR abdomen and a repeat dose of antibiotics. Will continue to evaluate here in the emergency department.
Discharge Plan
Departure
Prescriptions:
No Action
melatonin 5 MG tablet
10 mg PO HS
gabapentin 600 MG tablet
600 mg PO DAILY
lubiprostone 24 MCG capsule
24 mcg PO BID 0RF
Ca-D3-mag kb-yljc-mmb-lexie-bor [Calcium 600-D3 Plus (mag-zinc)] 1 EACH tablet
1 ea PO BID
Prolia 60 mg/mL Syringe
60 mg SC [id number] Qty: 0
levalbuterol tartrate 1 PUFF HFA aerosol inhaler
2 puff inhalation R Q4HPRN PRN (Reason: wheeze)
gabapentin 600 mg Tablet
1,200 mg PO HS
venlafaxine 150 mg Capsule,Extended Release 24hr
150 mg PO DAILY
cevimeline 30 mg Capsule
1 cap PO TID
hydroxychloroquine 200 mg Tablet
200 mg PO DAILY
cyclosporine [Restasis] 0.05 % Dropperette
1 drp BOTH EYES BID
cholecalciferol (vitamin D3) [Vitamin D3] 25 mcg (1,000 unit) Tablet
25 mcg PO DAILY
Dupixent Syringe 300 mg/2 mL Syringe
300 mg SC Q2W
clonazepam 1 MG tablet
2 mg PO HS
bisacodyl 5 mg Tablet
10 mg PO HS
methenamine hippurate 1 GRAM tablet
1 g PO HS
famotidine 40 mg Tablet
40 mg PO BID
Xarelto 10 mg Tablet
10 mg PO DAILY
Sutab 1.479-0.188- 0.225 gram Tablet
0 tab PO PER PKG DIR
hydromorphone [Dilaudid] 4 mg tablet
4 mg PO Q6H PRN (Reason: Pain) Qty: 4 0RF
Rx Instructions:
Please take 1/2 tab by mouth every 6-8hrs, as needed for severe pain.
dexlansoprazole 60 mg Capsule,Biphase Delayed Releas
60 mg PO HS
Referrals:
Wilma Shirley DO [Family Provider] -
Interventions
Interventions:
*Risk Screen - Suicide Last Done: 06/15/24 23:35
*General Assessment Last Done: 06/15/24 23:35
*Neglect/Abuse Screening Last Done: 06/15/24 23:35
ED- Fall Risk Assessment Last Done: 06/16/24 02:26
*ED COVID-19 Vaccine History Last Done: 06/15/24 23:35
IW-Blabeu-Qtdtnensbu Assessment Last Done: 06/16/24 02:25
Discharge Date and Time
Print Language: SALVADOREAN
[2024-06-16] MEDS: NSS 1000 IV (05:01)
[2024-06-16] MEDS: ZOFRAN 4 MG IV ×2 (07:33→21:07)
[2024-06-16 08:03] LABS: Urine Albumin 1+ (Neg - Trace); Urine Bilirubin Negative (Negative); Urine Character Clear (Clear); Urine Color Yellow; Urine Glucose Negative (Negative); Urine Ketone Negative (Negative); Urine Leukocyte Trace (Negative); Urine Nitrite Negative (Negative); Urine Occult Blood 1+ (Negative); Urine Specific Gravity 1.025 (<1.030); Urine Urobilinogen Negative (Neg - 1+)
--- NOTE | 2024-06-16 08:15 | ED.GENMED ---
History of Present Illness
General
Chief Complaint: Abdominal Symptoms
Source: patient
Time Seen by Provider: 06/16/24 03:36
Past History
Past History
ED Past Medical History: Arrthythmia (PVC's), Asthma, GERD, Other (Pulmonary embolism, DVT, factor V Leiden deficiency , Bowel obstructions, PNA, Hiatal hernia, GI bleeding, C. Diff, anemia) and Other (Sjogren's, osteoporosis, sleep apnea)
ED Past Surgical History: Appendectomy, Bowel resection (Multiple episodes of bowel obstruction), Cholecystectomy, Gynecological (Hysterectomy Total), Orthopedic (R shoulder surgery) and Other (Wilman filter)
Social History
Tobacco: Non-smoker
Alcohol: Occasional
Drug: None
Personal:
Living: with family
Employment: Employed
Family History
Family History: Other (Diabetes, coronary disease)
Course
Orders/Labs/Results
Orders:
Orders
06/16/24 03:07
CBC/With Diff [Complete Blood Count/With Diff] Urgent
CMP [Comprehensive Metabolic Panel] Urgent
06/16/24 04:00
STOOL [C difficile Antigen & Toxins] Urgent
RODNEY Source: Feces/Stool
Specimen Description:
Date Specimen was Collected: 06/16/24
Time Specimen was Collected: 07:28
Stool For WBC Urgent
RODNEY Source: Feces/Stool
Specimen Description:
Date Specimen was Collected: 06/16/24
Time Specimen was Collected: 07:28
06/16/24 04:57
0.9% Sodium Chloride 1000 ml [Nss] 1,000 ml IV BOLUS
06/16/24 06:01
Ondansetron Injectable [Zofran] 4 mg IV NOW STA
CR Abdomen - 1 View Urgent
Comment:
Reason For Exam: abdominal pain
06/16/24 07:35
Urinalysis Reflex To Culture Urgent
Date Specimen was Collected: 06/16/24
Time Specimen was Collected: 07:27
Urine Microscopic Reflex Cult Urgent
Stool Culture Urgent
RODNEY Source: Feces/Stool
Specimen Description:
Date Specimen was Collected: 06/16/24
Time Specimen was Collected: 07:28
Abnormal Lab Results
06/16/24 06/16/24
03:07 07:35
RBC 4.14 L 10^6/uL
(4.20-5.40)
MCH 31.2 H pg
(27.0-31.0)
Absolute Lymphs (auto) 1.0 L 10^3/uL
(1.2-3.4)
Neutrophils % 75.4 H %
(42.2-75.2)
Lymphocytes % 15.1 L %
(20.5-51.1)
Potassium 3.2 L mmol/L
(3.5-5.1)
Chloride 109 H mmol/L
(98-107)
Carbon Dioxide 21 L mmol/L
(22-30)
Glucose 104 H mg/dl
(70-99)
Calcium 6.9 L* mg/dl
(8.4-10.2)
Ur Occult Blood Reflex 1+ A
(Negative)
Leukocyte Esterase Rfl Trace A
(Negative)
Urine Albumin (Reflex) 1+ A
(Neg - Trace)
06/16/24 03:07
06/16/24 03:07
Vital Signs
Initial and Last Documented VS:
Initial Vital Signs
Temp Pulse Resp BP Pulse Ox
97.9 F 98 18 122/83 100
06/15/24 23:35 06/15/24 23:35 06/15/24 23:35 06/15/24 23:35 06/15/24 23:35
Last Documented Vital Signs
Temp Pulse Resp BP Pulse Ox
97.9 F 82 26 106/80 99
06/15/24 23:35 06/16/24 06:00 06/16/24 06:00 06/16/24 06:00 06/16/24 06:00
ED Attending Note
-
Portions of this chart may have been created with voice recognition software.� Occasional wrong word or��sound alike� substitutions may have occurred due to the inherent limitations of voice recognition software.
Discharge Plan
Departure
Prescriptions:
No Action
melatonin 5 MG tablet
10 mg PO HS
gabapentin 600 MG tablet
600 mg PO DAILY
lubiprostone 24 MCG capsule
24 mcg PO BID 0RF
Ca-D3-mag [id number]-lexie-bor [Calcium 600-D3 Plus (mag-zinc)] 1 EACH tablet
1 ea PO BID
Prolia 60 mg/mL Syringe
60 mg SC [id number] Qty: 0
levalbuterol tartrate 1 PUFF HFA aerosol inhaler
2 puff inhalation R Q4HPRN PRN (Reason: wheeze)
gabapentin 600 mg Tablet
1,200 mg PO HS
venlafaxine 150 mg Capsule,Extended Release 24hr
150 mg PO DAILY
cevimeline 30 mg Capsule
1 cap PO TID
hydroxychloroquine 200 mg Tablet
200 mg PO DAILY
cyclosporine [Restasis] 0.05 % Dropperette
1 drp BOTH EYES BID
cholecalciferol (vitamin D3) [Vitamin D3] 25 mcg (1,000 unit) Tablet
25 mcg PO DAILY
Dupixent Syringe 300 mg/2 mL Syringe
300 mg SC Q2W
clonazepam 1 MG tablet
2 mg PO HS
bisacodyl 5 mg Tablet
10 mg PO HS
methenamine hippurate 1 GRAM tablet
1 g PO HS
famotidine 40 mg Tablet
40 mg PO BID
Xarelto 10 mg Tablet
10 mg PO DAILY
Sutab 1.479-0.188- 0.225 gram Tablet
0 tab PO PER PKG DIR
hydromorphone [Dilaudid] 4 mg tablet
4 mg PO Q6H PRN (Reason: Pain) Qty: 4 0RF
Rx Instructions:
Please take 1/2 tab by mouth every 6-8hrs, as needed for severe pain.
dexlansoprazole 60 mg Capsule,Biphase Delayed Releas
60 mg PO HS
Referrals:
Wilma Shirley DO [Family Provider] -
Interventions
Interventions:
*Risk Screen - Suicide Last Done: 06/15/24 23:35
*General Assessment Last Done: 06/15/24 23:35
*Neglect/Abuse Screening Last Done: 06/15/24 23:35
ED- Fall Risk Assessment Last Done: 06/16/24 02:26
*ED COVID-19 Vaccine History Last Done: 06/15/24 23:35
CO-Sacmvx-Bhuqwycgrx Assessment Last Done: 06/16/24 02:25
Discharge Date and Time
Print Language: [place]LAND[place]
[2024-06-16 08:33] LABS: Urine Mucus Moderate
[2024-06-16 08:36] LABS: Urine Yeast Few (Negative)
[2024-06-16 08:37] LABS: Urine Red Blood Cell 0-2 /HPF (0-2)
[2024-06-16 08:38] LABS: Urine Bacteria Few (Negative)
--- NOTE | 2024-06-16 09:49 | HPS.HSE ---
Family Physician
-
Family Physician: Wilma Shirley
Chief Complaint
-
Nausea, vomiting, abdominal cramps and diarrhea
History of Present Illness
Patient is a 68 years old female who came to the emergency room with intractable nausea vomiting and abdominal pain with multiple loose stools for about 2 to 3 days. Patient reports recently treated urinary tract infection with completing course of
antibiotics/Augmentin. She has low oral intake for the last 2 to 3 days with persistent nausea, abdominal cramps and multiple loose stools. She denies blood in stool. She reports possible low-grade fever. Denies any sick contacts or recent
travel.
While in the emergency room patient with persistent symptoms not responding to antiemetics.
Additional workup consistent with mild dehydration and hypokalemia
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
Medical History
Past Medical History
Past Medical History: Reports Other (Factor V Leyden mutation with history of thromboembolism on Xarelto. Sjogren's syndrome, GERD, hiatal hernia)
Past Surgical History: Reports Other (Spinal stimulator)
Social History
Tobacco: Non-smoker
Drug: None
Personal:
Living: With Family
Family History
Family History: Not pertinent
Allergies / Home Medications
Allergies reflects when Allergies were last updated in [facility].
Home Medications with original date entered in [facility]
Allergy/Medication List:
Allergies
Allergy/AdvReac Type Severity Reaction Status Date / Time
bupropion HCl Allergy Seizure Verified 06/15/24 23:35
[From Wellbutrin]
carbamazepine Allergy TOXICITY/RA Verified 06/15/24 23:35
SH
cephalexin Allergy Rash Verified 06/15/24 23:35
ciprofloxacin Allergy Rash Verified 06/15/24 23:35
codeine [Codeine] Allergy Rash Verified 06/15/24 23:35
droperidol Allergy DYSTONIA Verified 06/15/24 23:35
iron [From Venofer] Allergy Anaphylaxis Verified 06/15/24 23:35
iron sucrose complex Allergy Anaphylaxis Verified 06/15/24 23:35
[From Venofer]
meloxicam Allergy Rash Verified 06/15/24 23:35
metaxalone Allergy Nausea / Verified 06/15/24 23:35
Vomiting
metoclopramide Allergy Rash Verified 06/15/24 23:35
ondansetron HCl [From Zofran] Allergy Rash Verified 06/15/24 23:35
prochlorperazine Allergy SPASMS Verified 06/15/24 23:35
promethazine Allergy Rash Verified 06/15/24 23:35
sulfamethoxazole Allergy Itching, Verified 06/15/24 23:35
[From Bactrim] rash
tetracycline Allergy Rash Verified 06/15/24 23:35
trimethoprim [From Bactrim] Allergy Itching, Verified 06/15/24 23:35
rash
vancomycin [Vancomycin] Allergy TEMP Verified 06/15/24 23:35
103.6F,
SEVERE
RIGORS,
TACHYCARDIA
Home Medications
melatonin 5 mg tablet 10 mg PO HS Sleep 10/11/15
gabapentin 600 mg tablet 600 mg PO DAILY Pain 06/26/16
lubiprostone 24 mcg capsule 24 mcg PO BID 09/17/17
calcium 600 mg-D3 20 mcg-magnesium 50 zt-Cp-qglbje-clotilde-boron tablet (Calcium 600-D3 Plus (mag-zinc)) 1 ea PO BID Supplement 08/06/19
denosumab 60 mg/mL subcutaneous syringe (Prolia) 60 mg SC [id number] osteoporosis ##0 11/18/19
cevimeline 30 mg capsule 1 cap PO TID 01/13/23
cyclosporine 0.05 % eye drops in a dropperette (Restasis) 1 drp BOTH EYES BID Eye Condition 01/13/23
dupilumab 300 mg/2 mL subcutaneous syringe (Dupixent) 300 mg SC Q2W Skin Issues 01/13/23
gabapentin 600 mg tablet 1,200 mg PO HS Pain 01/13/23
hydroxychloroquine 200 mg tablet 200 mg PO DAILY Autoimmune Disorder 01/13/23
venlafaxine 150 mg capsule,extended release 24 hr 150 mg PO DAILY Mental Health/Anxiety 01/13/23
bisacodyl 5 mg tablet 10 mg PO HS Constipation 07/10/23
famotidine 40 mg tablet 40 mg PO BID Gastrointestinal Issue 07/10/23
methenamine hippurate 1 gram tablet 1 g PO DAILY Infection 07/10/23
rivaroxaban 10 mg tablet (Xarelto) 10 mg PO DAILY Blood Clot Prevention/Tx 09/23/23
Uqora Defend 1 cap PO BID 06/16/24
clonazepam 2 mg tablet 2 mg PO HS 06/16/24
dexlansoprazole 60 mg capsule,biphase delayed release 60 mg PO QPM 06/16/24
mirabegron 50 mg tablet,extended release 24 hr (Myrbetriq) 50 mg PO DAILY 06/16/24
omega-3 fatty acids 1,000 mg PO BID 06/16/24
Review of Systems
-
A 12 point ROS was completed and negative except as noted: Yes
Abdomen/GI: Reports See HPI
: Reports See HPI
Physical Exam
Vital Signs
Vital Signs
Temp Pulse Resp BP Pulse Ox
97.9 F 82 26 106/80 99
06/15/24 23:35 06/16/24 06:00 06/16/24 06:00 06/16/24 06:00 06/16/24 06:00
Physical Exam
General: Well Developed, Well Nourished and No Apparent Distress
HEENT: NormoCephalic, Moist mucous membranes and Atraumatic
Respiratory: Clear
Cardiac: S1/S2 and Regular Rhythm; No Murmur or Rub
GI: Soft, Non Tender, Non Distended and Normal Bowel Sounds; No Organomegaly
Rectal: Deferred by Provider
Musculoskeletal: No Clubbing, No Cyanosis and No Edema
Skin: No Rash
Neuro: Nonfocal/grossly intact
Laboratory Results
-
06/16/24 03:07
06/16/24 03:07
Laboratory Results
Total Bilirubin 0.5 mg/dl (0.2-1.3) 06/16/24 03:07
AST 22 U/L (14-36) 06/16/24 03:07
ALT 19 U/L (0-35) 06/16/24 03:07
Alkaline Phosphatase 57 U/L (38-126) 06/16/24 03:07
Impression/Plan
-
IMPRESSION:
Presentation with intractable nausea, emesis, abdominal cramps and diarrhea.
Suspect acute gastroenteritis.
Dehydration
Metabolic acidosis secondary to gastrointestinal losses.
Hypokalemia.
Recent UTI treated with Augmentin
Other conditions:
Asthma
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
Sjogren syndrome.
GERD.
Hiatal hernia.
Restless leg syndrome, status post spinal stimulator.
Anxiety/depression.
Right subclavian port, difficult IV access.
Left lower lobe nodule with benign endobronchial biopsy
PLAN:
Acute gastroenteritis
Differential diagnosis viral versus bacterial, given recent antibiotics need to rule out C. difficile.
Afebrile and hemodynamically stable, nontoxic-appearing
Abdominal x-ray pending final report with nonobstructive pattern
Check stool cultures
Stool for C. difficile
Norovirus PCR
Clear liquid diet
IV hydration
Antiemetics.
Continue PPI/famotidine.
Hold lubiprostone.
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
Status post IVC filter
Continue Xarelto
Hiatal hernia/GERD
Continue PPI/famotidine.
Aspiration precautions with nausea and vomiting.
Sjogren's syndrome
Continue hydroxychloroquine
Restless leg syndrome status post spinal stimulator
Continue gabapentin
Anxiety/depression/insomnia continue venlafaxine. Clonazepam
Full code
DVT prophylaxis Xarelto
--- NOTE | 2024-06-16 15:18 | CM ---
Patient seen at bedside in ED. Patient stated that she lives in 2 story home with 3 steps to enter and she has a stair glide that she uses. Patient PCP is Dr. Shirley and she uses the [facility] in [place] on [phone]. Patient stated that she plans to go
home with no needs. Patient also has a nebulizer. CM will continue to follow for discharge planning needs.
Plan; home with no needs vs home with VN
[2024-06-16] MEDS: 0.45% NACL with KCL 20 MEQ 1000 IV (17:09)
[2024-06-16] MEDS: XARELTO 10 MG PO (17:29)
[2024-06-16] MEDS: PROTONIX 40 MG PO (17:29)
[2024-06-16] MEDS: RESTASIS 0.05% OPHTHALMIC EMULSION 1 DROPS BOTH EYES (20:47)
[2024-06-16] MEDS: PEPCID 40 MG PO (20:50)
[2024-06-16] MEDS: KLONOPIN 2 MG PO (21:07)
[2024-06-16] MEDS: NEURONTIN 1200 MG PO (21:07)
[2024-06-16] MEDS: MELATONIN 10 MG PO (21:07)
[2024-06-17] MEDS: 0.45% NACL with KCL 20 MEQ 1000 IV ×2 (03:28→14:56)
[2024-06-17 05:51] LABS: % Basophils 0.7 % (0-2); % Eosinophils 2.4 % (0-6); % Immature Granulocytes 0.2 % (0-0.5); % Lymphocytes 29.6 % (20.5-51.1); % Monocytes 8.9 % (1.7-9.3); % Neutrophils 58.2 % (42.2-75.2); Absolute Eosinophils 0.1 10^3/uL (0-0.7); Absolute Lymphocytes 1.3 10^3/uL (1.2-3.4); Absolute Monocytes 0.4 10^3/uL (0.1-0.6); Absolute Neutrophils 2.5 10^3/uL (1.4-6.5); Hematocrit 35.9 % (37.0-47.0); Hemoglobin 11.6 g/dL (12.0-16.0); Mean Corp Hgb Conc. 32.3 g/dL (33.0-37.0); Mean Corpuscular Hgb 30.9 pg (27.0-31.0); Mean Corpuscular Volume 95.7 fL (81.0-99.0); Mean Platelet Volume 9.9 fL (7.4-10.4); Nucleated Red Blood Cells % 0 %; Platelet Count 189 10^3/uL (130-400); Red Blood Cell Count 3.75 10^6/uL (4.20-5.40); Red Cell Dist. Width 13.9 % (11.5-14.5); White Blood Cell Count 4.3 10^3/uL (4.8-10.8)
[2024-06-17 06:45] LABS: Blood Urea Nitrogen 6 mg/dl (7-17); Calcium 6.2 mg/dl (8.4-10.2); Carbon Dioxide 21 mmol/L (22-30); Chloride 113 mmol/L (98-107); Estimated Creatinine Clearance 66 ml/min; Glucose 76 mg/dl (70-99); Sodium 142 mmol/L (135-145); eGFR > 60.00
[2024-06-17 08:30] VITALS: BP 104/70
[2024-06-17] MEDS: ZOFRAN 4 MG IV ×2 (09:08→18:36)
[2024-06-17] MEDS: EFFEXOR XR 150 MG PO (09:17)
[2024-06-17] MEDS: MYRBETRIQ EXTENDED RELEASE 50 MG PO (09:17)
[2024-06-17] MEDS: HIPREX 1 GRAM PO (09:17)
[2024-06-17] MEDS: NEURONTIN 600 MG PO (09:17)
[2024-06-17] MEDS: PEPCID 40 MG PO ×2 (09:18→21:00)
[2024-06-17] MEDS: RESTASIS 0.05% OPHTHALMIC EMULSION 1 DROPS BOTH EYES ×2 (09:18→20:59)
[2024-06-17] MEDS: PLAQUENIL 200 MG PO (09:18)
--- NOTE | 2024-06-17 11:23 | CM ---
CM reviewed chart, patient positive for Norovirus. Patient seen bedside. Patient reports no needs to CM at this time or upon discharge. CM will continue to follow for all discharge planning needs.
Plan; home with no needs.
[2024-06-17] MEDS: XARELTO 10 MG PO (12:13)
[2024-06-17] MEDS: DILAUDID 0.5 MG IV ×2 (12:50→21:01)
[2024-06-17 13:56] LABS: Urine Albumin Negative (Neg - Trace); Urine Bilirubin Negative (Negative); Urine Character Clear (Clear); Urine Color Yellow; Urine Glucose Negative (Negative); Urine Ketone Negative (Negative); Urine Leukocyte Negative (Negative); Urine Nitrite Negative (Negative); Urine Occult Blood Negative (Negative); Urine Specific Gravity 1.005 (<1.030); Urine Urobilinogen Negative (Neg - 1+)
--- NOTE | 2024-06-17 15:11 | W.PN.HOSP.TC ---
Today's Communication/Plan
-
Maintain fluid
Continue IV fluids
Replete electrolytes
Assessment / Plan
Assessment / Plan
IMPRESSION:
Presentation with intractable nausea, emesis, abdominal cramps and diarrhea.
Suspect acute gastroenteritis.
Dehydration
Metabolic acidosis secondary to gastrointestinal losses.
Hypokalemia.
Hypocalcemia of acute illness
Recent UTI treated with Augmentin
Other conditions:
Asthma
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
Sjogren syndrome.
GERD.
Hiatal hernia.
Restless leg syndrome, status post spinal stimulator.
Anxiety/depression.
Right subclavian port, difficult IV access.
Left lower lobe nodule with benign endobronchial biopsy
PLAN:
Acute gastroenteritis secondary to norovirus
Afebrile and hemodynamically stable, nontoxic-appearing
Abdominal x-ray with mild gaseous distention. No evidence of significant bowel wall thickening
Norovirus PCR positive
Suspect mild ileus secondary to infection
Continue clear liquid diet
IV hydration. Replete electrolytes
Antiemetics.
Continue PPI/famotidine.
Hold lubiprostone.
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
Status post IVC filter
Continue Xarelto
Hiatal hernia/GERD
Continue PPI/famotidine.
Aspiration precautions with nausea and vomiting.
Sjogren's syndrome
Continue hydroxychloroquine
Restless leg syndrome status post spinal stimulator
Continue gabapentin
Anxiety/depression/insomnia continue venlafaxine. Clonazepam
Full code
DVT prophylaxis Xarelto
Anticipated Discharge: 24 - 48 hours
Subjective/Interval History
-
Date of Service: June 17, 2024
Objective Data
-
Labs:
Laboratory Results
12/12/24
05:14
WBC 4.3 L
Hgb 11.6 L
Hct 35.9 L
Plt Count 189
Sodium 142
Potassium 4.0
Chloride 113 H
Carbon Dioxide 21 L
BUN 6 L
Creatinine 0.7
Glucose 76
Calcium 6.2 L*
Vital Signs:
Vital Signs
Temp Pulse Resp BP Pulse Ox
98.1 F 72 16 104/70 98
06/17/24 08:30 06/17/24 08:30 06/17/24 08:30 06/17/24 08:30 06/17/24 08:30
I&O
06/16/24 06/17/24 06/18/24
06:59 06:59 06:59
Intake Total 1560 / 1560 120 / 120
Balance 1560 / 1560 120 / 120
Physical Exam
-
General: Well Developed, Well Nourished and No Apparent Distress
HEENT: Normocephalic, Atraumatic, Moist Mucous Membranes and Other (chest port noted )
Respiratory: Clear to Auscultation (significantly clearer today) and Rhonchi (essentially resolved)
Cardiac: Regular Rhythm and S1/S2
GI: Soft, Nontender, Nondistended and Normal Bowel Sounds
Musculoskeletal: No Edema
Skin: Warm
Neuro: Awake and AO x 3
Psych: Calm
[2024-06-17 16:00] VITALS: BP 119/58
[2024-06-17] MEDS: CALCIUM GLUCONATE 100 IV (16:51)
[2024-06-17] MEDS: PROTONIX 40 MG PO (16:54)
[2024-06-17] MEDS: KLONOPIN 2 MG PO (21:00)
[2024-06-17] MEDS: MELATONIN 10 MG PO (21:01)
[2024-06-17] MEDS: NEURONTIN 1200 MG PO (21:01)
[2024-06-17 23:25] VITALS: BP 119/59
[2024-06-18] MEDS: 0.45% NACL with KCL 20 MEQ 1000 IV ×2 (01:07→11:30)
[2024-06-18 05:34] LABS: % Basophils 0.3 % (0-2); % Eosinophils 2.8 % (0-6); % Immature Granulocytes 0.5 % (0-0.5); % Lymphocytes 35.3 % (20.5-51.1); % Monocytes 7.1 % (1.7-9.3); Absolute Eosinophils 0.1 10^3/uL (0-0.7); Absolute Lymphocytes 1.4 10^3/uL (1.2-3.4); Absolute Monocytes 0.3 10^3/uL (0.1-0.6); Absolute Neutrophils 2.1 10^3/uL (1.4-6.5); Hematocrit 36.4 % (37.0-47.0); Hemoglobin 11.4 g/dL (12.0-16.0); Mean Corp Hgb Conc. 31.3 g/dL (33.0-37.0); Mean Corpuscular Hgb 30.5 pg (27.0-31.0); Mean Corpuscular Volume 97.3 fL (81.0-99.0); Mean Platelet Volume 9.4 fL (7.4-10.4); Nucleated Red Blood Cells % 0 %; Platelet Count 190 10^3/uL (130-400); Red Blood Cell Count 3.74 10^6/uL (4.20-5.40); Red Cell Dist. Width 13.9 % (11.5-14.5); White Blood Cell Count 3.9 10^3/uL (4.8-10.8)
[2024-06-18 06:41] LABS: Blood Urea Nitrogen 3 mg/dl (7-17); Calcium 6.7 mg/dl (8.4-10.2); Carbon Dioxide 22 mmol/L (22-30); Chloride 114 mmol/L (98-107); Estimated Creatinine Clearance 66 ml/min; Glucose 76 mg/dl (70-99); Potassium 4.5 mmol/L (3.5-5.1); Sodium 141 mmol/L (135-145); eGFR > 60.00
[2024-06-18 07:30] VITALS: BP 105/51
[2024-06-18] MEDS: DILAUDID 0.5 MG IV ×3 (08:43→21:15)
[2024-06-18] MEDS: HIPREX 1 GRAM PO (08:49)
[2024-06-18] MEDS: MYRBETRIQ EXTENDED RELEASE 50 MG PO (08:49)
[2024-06-18] MEDS: EFFEXOR XR 150 MG PO (08:50)
[2024-06-18] MEDS: PLAQUENIL 200 MG PO (08:50)
[2024-06-18] MEDS: PEPCID 40 MG PO ×2 (08:50→21:09)
[2024-06-18] MEDS: NEURONTIN 600 MG PO (08:50)
[2024-06-18] MEDS: RESTASIS 0.05% OPHTHALMIC EMULSION 1 DROPS BOTH EYES ×2 (08:50→21:09)
[2024-06-18] MEDS: XARELTO 10 MG PO (08:51)
--- NOTE | 2024-06-18 12:29 | CM ---
CM reviewed chart, patient seen bedside. Patient positive Norovirus, reports she is feeling better today. Patient denies needs from CM upon discharge. CM reviewed IMM, verbally agreeable, placed in chart, patient provided with copy. CM will continue
to follow for all discharge planning needs.
Plan; home no needs.
[2024-06-18 15:00] VITALS: BP 110/54
[2024-06-18] MEDS: CALCIUM GLUCONATE 100 IV (15:34)
[2024-06-18] MEDS: PROTONIX 40 MG PO (15:35)
--- NOTE | 2024-06-18 15:45 | W.PN.HOSP.TC ---
Today's Communication/Plan
-
Advance to full liquid diet
Wean off IV fluids.
Replete calcium
Assessment / Plan
Assessment / Plan
IMPRESSION:
Presentation with intractable nausea, emesis, abdominal cramps and diarrhea.
Suspect acute gastroenteritis.
Dehydration
Metabolic acidosis secondary to gastrointestinal losses.
Hypokalemia.
Hypocalcemia of acute illness
Recent UTI treated with Augmentin
Other conditions:
Asthma
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
Sjogren syndrome.
GERD.
Hiatal hernia.
Restless leg syndrome, status post spinal stimulator.
Anxiety/depression.
Right subclavian port, difficult IV access.
Left lower lobe nodule with benign endobronchial biopsy
PLAN:
Acute gastroenteritis secondary to norovirus
Afebrile and hemodynamically stable, nontoxic-appearing
Abdominal x-ray with mild gaseous distention. No evidence of significant bowel wall thickening
Norovirus PCR positive
Suspect mild ileus secondary to infection
Advance to full liquid diet
Wean off IV fluids
Replete calcium
Antiemetics.
Continue PPI/famotidine.
Hold lubiprostone.
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
Status post IVC filter
Continue Xarelto
Hiatal hernia/GERD
Continue PPI/famotidine.
Aspiration precautions with nausea and vomiting.
Sjogren's syndrome
Continue hydroxychloroquine
Restless leg syndrome status post spinal stimulator
Continue gabapentin
Anxiety/depression/insomnia continue venlafaxine. Clonazepam
Full code
DVT prophylaxis Xarelto
Anticipated Discharge: 24 - 48 hours
Subjective/Interval History
-
Date of Service: June 18, 2024
Objective Data
-
Labs:
Laboratory Results
06/18/24
05:10
WBC 3.9 L
Hgb 11.4 L
Hct 36.4 L
Plt Count 190
Sodium 141
Potassium 4.5
Chloride 114 H
Carbon Dioxide 22
BUN 3 L
Creatinine 0.7
Glucose 76
Calcium 6.7 L*
Vital Signs:
Vital Signs
Temp Pulse Resp BP Pulse Ox
97.4 F 72 20 105/51 98
06/18/24 07:30 06/18/24 07:30 06/18/24 07:30 06/18/24 07:30 06/18/24 07:30
I&O
06/17/24 06/18/24 06/19/24
06:59 06:59 06:59
Intake Total 1560 / 1560 2280 / 2280
Balance 1560 / 1560 2280 / 2280
Physical Exam
-
General: Well Developed, Well Nourished and No Apparent Distress
HEENT: Normocephalic, Atraumatic, Moist Mucous Membranes and Other (chest port noted )
Respiratory: Clear to Auscultation (significantly clearer today) and Rhonchi (essentially resolved)
Cardiac: Regular Rhythm and S1/S2
GI: Soft, Nontender, Nondistended and Normal Bowel Sounds
Musculoskeletal: No Edema
Skin: Warm
Neuro: Awake and AO x 3
Psych: Calm
[2024-06-18] MEDS: KLONOPIN 2 MG PO (21:09)
[2024-06-18] MEDS: NEURONTIN 1200 MG PO (21:10)
[2024-06-18] MEDS: MELATONIN 10 MG PO (21:10)
[2024-06-18 23:05] VITALS: BP 131/65
[2024-06-19 05:45] LABS: % Basophils 0.7 % (0-2); % Eosinophils 3.1 % (0-6); % Immature Granulocytes 0.2 % (0-0.5); % Lymphocytes 33.6 % (20.5-51.1); % Monocytes 6.6 % (1.7-9.3); % Neutrophils 55.8 % (42.2-75.2); Absolute Eosinophils 0.1 10^3/uL (0-0.7); Absolute Lymphocytes 1.5 10^3/uL (1.2-3.4); Absolute Monocytes 0.3 10^3/uL (0.1-0.6); Absolute Neutrophils 2.5 10^3/uL (1.4-6.5); Hematocrit 37.1 % (37.0-47.0); Hemoglobin 11.8 g/dL (12.0-16.0); Ionized Calcium 1.14 mMOL/L (1.15-1.33); Mean Corp Hgb Conc. 31.8 g/dL (33.0-37.0); Mean Corpuscular Hgb 30.6 pg (27.0-31.0); Mean Corpuscular Volume 96.4 fL (81.0-99.0); Mean Platelet Volume 9.4 fL (7.4-10.4); Nucleated Red Blood Cells % 0 %; Platelet Count 211 10^3/uL (130-400); Red Blood Cell Count 3.85 10^6/uL (4.20-5.40); Red Cell Dist. Width 13.8 % (11.5-14.5); White Blood Cell Count 4.6 10^3/uL (4.8-10.8)
[2024-06-19 06:10] LABS: Blood Urea Nitrogen 4 mg/dl (7-17); Carbon Dioxide 24 mmol/L (22-30); Chloride 110 mmol/L (98-107); Estimated Creatinine Clearance 66 ml/min; Glucose 82 mg/dl (70-99); Potassium 4.6 mmol/L (3.5-5.1); Sodium 140 mmol/L (135-145); eGFR > 60.00
[2024-06-19] MEDS: RESTASIS 0.05% OPHTHALMIC EMULSION 1 DROPS BOTH EYES ×2 (08:12→22:00)
[2024-06-19] MEDS: NEURONTIN 600 MG PO (08:12)
[2024-06-19] MEDS: HIPREX 1 GRAM PO (08:12)
[2024-06-19] MEDS: PLAQUENIL 200 MG PO (08:13)
[2024-06-19] MEDS: XARELTO 10 MG PO (08:13)
[2024-06-19] MEDS: MYRBETRIQ EXTENDED RELEASE 50 MG PO (08:13)
[2024-06-19] MEDS: PEPCID 40 MG PO ×2 (08:13→21:59)
[2024-06-19] MEDS: EFFEXOR XR 150 MG PO (08:13)
[2024-06-19] MEDS: DILAUDID 0.5 MG IV ×5 (08:21→22:13)
[2024-06-19 08:58] VITALS: BP 134/73
--- NOTE | 2024-06-19 12:58 | W.PN.HOSP.TC ---
Today's Communication/Plan
-
Exam remains with slightly distended, although nontender abdomen.
Remains with loose bowel movements for 5-day
WBC at 4.6
Maintain full liquid diet for another 24 hours.
If no significant improvement would consider reimaging with CT scan of the abdomen/pelvis
Assessment / Plan
Assessment / Plan
IMPRESSION:
Presentation with intractable nausea, emesis, abdominal cramps and diarrhea.
Suspect acute gastroenteritis.
Dehydration
Metabolic acidosis secondary to gastrointestinal losses.
Hypokalemia.
Hypocalcemia of acute illness
Recent UTI treated with Augmentin
Other conditions:
Asthma
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
Sjogren syndrome.
GERD.
Hiatal hernia.
Restless leg syndrome, status post spinal stimulator.
Anxiety/depression.
Right subclavian port, difficult IV access.
Left lower lobe nodule with benign endobronchial biopsy
PLAN:
Acute gastroenteritis secondary to norovirus
Afebrile and hemodynamically stable, nontoxic-appearing
Abdominal x-ray with mild gaseous distention. No evidence of significant bowel wall thickening
Norovirus PCR positive
Suspect mild ileus secondary to infection
Exam remains with slightly distended, although nontender abdomen.
Remains with loose bowel movements for 5-day
WBC at 4.6
Maintain full liquid diet for another 24 hours.
If no significant improvement would consider reimaging with CT scan of the abdomen/pelvis
Wean off IV fluids
Replete calcium
Antiemetics.
Continue PPI/famotidine.
Hold lubiprostone.
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
Status post IVC filter
Continue Xarelto
Hiatal hernia/GERD
Continue PPI/famotidine.
Aspiration precautions with nausea and vomiting.
Sjogren's syndrome
Continue hydroxychloroquine
Restless leg syndrome status post spinal stimulator
Continue gabapentin
Anxiety/depression/insomnia continue venlafaxine. Clonazepam
Full code
DVT prophylaxis Xarelto
Anticipated Discharge: 24 - 48 hours
Subjective/Interval History
-
Date of Service: June 19, 2024
Objective Data
-
Labs:
Laboratory Results
06/19/24
05:16
WBC 4.6 L
Hgb 11.8 L
Hct 37.1
Plt Count 211
Sodium 140
Potassium 4.6
Chloride 110 H
Carbon Dioxide 24
BUN 4 L
Creatinine 0.7
Glucose 82
Calcium 8.0 L
Vital Signs:
Vital Signs
Temp Pulse Resp BP Pulse Ox
98.1 F 74 16 134/73 98
06/19/24 08:58 06/19/24 08:58 06/19/24 08:58 06/19/24 08:58 06/19/24 08:58
I&O
06/18/24 06/19/24 06/20/24
06:59 06:59 06:59
Intake Total 2280 / 2280 1160 / 1160
Balance 2280 / 2280 1160 / 1160
Physical Exam
-
General: Well Developed, Well Nourished and No Apparent Distress
HEENT: Normocephalic, Atraumatic, Moist Mucous Membranes and Other (chest port noted )
Respiratory: Clear to Auscultation (significantly clearer today) and Rhonchi (essentially resolved)
Cardiac: Regular Rhythm and S1/S2
GI: Soft, Nontender, Nondistended and Normal Bowel Sounds
Musculoskeletal: No Edema
Skin: Warm
Neuro: Awake and AO x 3
Psych: Calm
[2024-06-19] MEDS: OMNIPAQUE 50 ML PO (14:46)
[2024-06-19 16:50] VITALS: BP 146/70
[2024-06-19] MEDS: PROTONIX 40 MG PO (17:58)
[2024-06-19] MEDS: CATHFLO/ACTIVASE 2 MG INTRACATH (20:00)
--- NOTE | 2024-06-19 21:45 | PTCARENOTE ---
Pt w/no blood return via R SubQ port. VAT RN contacted, instructed to obtain cathflow. [employer]OC[employer] DESIGNER covering contacted --> electronic orders received. Pt with brisk blood return after dwelling.
[2024-06-19] MEDS: KLONOPIN 2 MG PO (21:59)
[2024-06-19] MEDS: MELATONIN 10 MG PO (21:59)
[2024-06-19] MEDS: NEURONTIN 1200 MG PO (22:00)
[2024-06-19] MEDS: XOPENEX 0.63 MG INHALANT SOLUTION INH (22:33)
--- NOTE | 2024-06-19 22:45 | PTCARENOTE ---
Pt c/o 'asthma attack', dry hacking cough and feels tight. No wheezing auscultated. Pt reports using levobuterol rescue INH at home. SPECIALIZED DEVELOPER covering house contacted, electronic orders received (refer to SEP). RT admin treatment. Plan of care
ongoing.
[2024-06-19 23:36] VITALS: BP 119/63
[2024-06-20] MEDS: DILAUDID 0.5 MG IV ×2 (01:19→09:22)
[2024-06-20 05:55] LABS: % Basophils 0.3 % (0-2); % Eosinophils 1.7 % (0-6); % Immature Granulocytes 0.4 % (0-0.5); % Lymphocytes 13.3 % (20.5-51.1); % Monocytes 4.6 % (1.7-9.3); % Neutrophils 79.7 % (42.2-75.2); Absolute Eosinophils 0.2 10^3/uL (0-0.7); Absolute Lymphocytes 1.3 10^3/uL (1.2-3.4); Absolute Monocytes 0.5 10^3/uL (0.1-0.6); Absolute Neutrophils 7.8 10^3/uL (1.4-6.5); Hematocrit 35.4 % (37.0-47.0); Hemoglobin 11.8 g/dL (12.0-16.0); Mean Corp Hgb Conc. 33.3 g/dL (33.0-37.0); Mean Corpuscular Volume 92.9 fL (81.0-99.0); Mean Platelet Volume 9.7 fL (7.4-10.4); Nucleated Red Blood Cells % 0 %; Platelet Count 232 10^3/uL (130-400); Red Blood Cell Count 3.81 10^6/uL (4.20-5.40); Red Cell Dist. Width 13.4 % (11.5-14.5); White Blood Cell Count 9.8 10^3/uL (4.8-10.8)
[2024-06-20 07:20] VITALS: BP 120/52
[2024-06-20] MEDS: PEPCID 40 MG PO ×2 (08:45→21:50)
[2024-06-20] MEDS: XARELTO 10 MG PO (08:46)
[2024-06-20] MEDS: NEURONTIN 600 MG PO (08:46)
[2024-06-20] MEDS: MYRBETRIQ EXTENDED RELEASE 50 MG PO (08:46)
[2024-06-20] MEDS: EFFEXOR XR 150 MG PO (08:46)
[2024-06-20] MEDS: HIPREX 1 GRAM PO (08:46)
[2024-06-20] MEDS: RESTASIS 0.05% OPHTHALMIC EMULSION 1 DROPS BOTH EYES ×2 (08:46→21:50)
[2024-06-20] MEDS: PLAQUENIL 200 MG PO (08:46)
[2024-06-20] MEDS: DULCOLAX 10 MG RECTAL (13:29)
--- NOTE | 2024-06-20 13:58 | W.PN.HOSP.TC ---
Today's Communication/Plan
-
Clear liquid diet
Doculax every 8 hours.
Avoid narcotics
IV Tylenol as preferred pain medication.
Assessment / Plan
Assessment / Plan
IMPRESSION:
Presentation with intractable nausea, emesis, abdominal cramps and diarrhea.
Suspect acute gastroenteritis.
Dehydration
Metabolic acidosis secondary to gastrointestinal losses.
Hypokalemia.
Hypocalcemia of acute illness
Recent UTI treated with Augmentin
Other conditions:
Asthma
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
Sjogren syndrome.
GERD.
Hiatal hernia.
Restless leg syndrome, status post spinal stimulator.
Anxiety/depression.
Right subclavian port, difficult IV access.
Left lower lobe nodule with benign endobronchial biopsy
PLAN:
Acute gastroenteritis secondary to norovirus
Afebrile and hemodynamically stable, nontoxic-appearing
Abdominal x-ray with mild gaseous distention. No evidence of significant bowel wall thickening
Norovirus PCR positive
Persistent ileus
CT scan of the abdomen with IV and oral contrast on 06/19 consistent with colonic dilatation, mild with sigmoid diameter at 6.2 cm.
Exam remains with slightly distended, although nontender abdomen.
Abdomen remains distended, although relatively benign
Not nauseous but burping
No BM on 06/20.
Avoid narcotics, minimize hydromorphone
IV Tylenol for pain.
Doculax suppository every 8 hours
GI consultation
Monitor closely, may require colonic decompression if progress.
Clear liquid diet
Replete calcium
Antiemetics.
Continue PPI/famotidine.
Hold lubiprostone.
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
Status post IVC filter
Continue Xarelto
Hiatal hernia/GERD
Continue PPI/famotidine.
Aspiration precautions with nausea and vomiting.
Sjogren's syndrome
Continue hydroxychloroquine
Restless leg syndrome status post spinal stimulator
Continue gabapentin
Anxiety/depression/insomnia continue venlafaxine. Clonazepam
Full code
DVT prophylaxis Xarelto
Anticipated Discharge: > 48 hours
Subjective/Interval History
-
Date of Service: June 20, 2024
Objective Data
-
Labs:
Laboratory Results
06/20/24
05:37
WBC 9.8
Hgb 11.8 L
Hct 35.4 L
Plt Count 232
Sodium Pending
Potassium Pending
Chloride Pending
Carbon Dioxide Pending
BUN Pending
Creatinine Pending
Glucose Pending
Calcium Pending
Vital Signs:
Vital Signs
Temp Pulse Resp BP Pulse Ox
99.2 F 89 18 120/52 97
06/20/24 07:20 06/20/24 07:20 06/20/24 07:20 06/20/24 07:20 06/20/24 07:20
I&O
06/19/24 06/20/24 06/21/24
06:59 06:59 06:59
Intake Total 1160 / 1160 780 / 780
Balance 1160 / 1160 780 / 780
Physical Exam
-
General: Well Developed, Well Nourished and No Apparent Distress
HEENT: Normocephalic, Atraumatic, Moist Mucous Membranes and Other (chest port noted )
Respiratory: Clear to Auscultation (significantly clearer today) and Rhonchi (essentially resolved)
Cardiac: Regular Rhythm and S1/S2
GI: Soft, Nontender, Nondistended and Normal Bowel Sounds
Musculoskeletal: No Edema
Skin: Warm
Neuro: Awake and AO x 3
Psych: Calm
[2024-06-20] MEDS: OFIRMEV 100 IV ×2 (14:08→22:30)
[2024-06-20 15:30] VITALS: BP 106/51
[2024-06-20] MEDS: PROTONIX 40 MG PO (17:06)
[2024-06-20] MEDS: DILAUDID 0.25 MG IV (18:10)
[2024-06-20] MEDS: MELATONIN 10 MG PO (21:50)
[2024-06-20] MEDS: NEURONTIN 1200 MG PO (21:50)
[2024-06-20] MEDS: KLONOPIN 2 MG PO (21:50)
[2024-06-20] MEDS: DULCOLAX RECTAL (22:31)
[2024-06-20 23:30] VITALS: BP 112/46
--- NOTE | 2024-06-20 23:31 | PTCARENOTE ---
Pt reports 5 liquid watery stools today. Tympanic BS x4, softly distended, round abdomen. Refusing suppository at this time. Ambulation encouraged and discussed avoiding narcs. Pt receptive to PRN IV ofirmev w/hesitation, reports 'it did
nothing'. R SubQ port w/brisk blood return. Plan of care ongoing.
[2024-06-21] MEDS: DULCOLAX RECTAL (04:53)
[2024-06-21 06:48] LABS: % Basophils 0.9 % (0-2); % Immature Granulocytes 0.9 % (0-0.5); % Lymphocytes 26.7 % (20.5-51.1); % Monocytes 8.1 % (1.7-9.3); % Neutrophils 57.4 % (42.2-75.2); Absolute Eosinophils 0.3 10^3/uL (0-0.7); Absolute Lymphocytes 1.3 10^3/uL (1.2-3.4); Absolute Monocytes 0.4 10^3/uL (0.1-0.6); Absolute Neutrophils 2.7 10^3/uL (1.4-6.5); Hematocrit 35.1 % (37.0-47.0); Hemoglobin 11.5 g/dL (12.0-16.0); Mean Corp Hgb Conc. 32.8 g/dL (33.0-37.0); Mean Corpuscular Hgb 31.3 pg (27.0-31.0); Mean Corpuscular Volume 95.6 fL (81.0-99.0); Mean Platelet Volume 9.7 fL (7.4-10.4); Nucleated Red Blood Cells % 0 %; Platelet Count 256 10^3/uL (130-400); Red Blood Cell Count 3.67 10^6/uL (4.20-5.40); Red Cell Dist. Width 13.4 % (11.5-14.5); White Blood Cell Count 4.7 10^3/uL (4.8-10.8)
[2024-06-21 07:10] LABS: Blood Urea Nitrogen 8 mg/dl (7-17); Calcium 8.8 mg/dl (8.4-10.2); Carbon Dioxide 31 mmol/L (22-30); Chloride 103 mmol/L (98-107); Estimated Creatinine Clearance 52 ml/min; Glucose 86 mg/dl (70-99); Potassium 4.5 mmol/L (3.5-5.1); Sodium 140 mmol/L (135-145); eGFR > 60.00
[2024-06-21 08:23] VITALS: BP 106/73
[2024-06-21] MEDS: HIPREX 1 GRAM PO (08:45)
[2024-06-21] MEDS: MYRBETRIQ EXTENDED RELEASE 50 MG PO (08:45)
[2024-06-21] MEDS: XARELTO 10 MG PO (08:46)
[2024-06-21] MEDS: PLAQUENIL 200 MG PO (08:46)
[2024-06-21] MEDS: EFFEXOR XR 150 MG PO (08:46)
[2024-06-21] MEDS: NEURONTIN 600 MG PO (08:46)
[2024-06-21] MEDS: PEPCID 40 MG PO ×2 (08:46→20:14)
[2024-06-21] MEDS: RESTASIS 0.05% OPHTHALMIC EMULSION 1 DROPS BOTH EYES ×2 (08:46→20:13)
--- NOTE | 2024-06-21 09:30 | CON.GI ---
Addendum entered and electronically signed by Julian Art DO 06/21/24 14:24:
I saw and examined the patient.
The LIVEST[employer] YARD ATTENDANT's note was reviewed and I agree with the note.
Comment: Ms. Morataya is a 68 y.o female with past medical history of GERD, IBS-C, hx of Sjogren's syndrome, RLS (s/p spinal-cord stimulator), small bowel obstruction (2/2 adhesions s/p SB resections x 2 in ), factor V Leiden deficiency c/b DVT/PE
(on xarelto) who initially presented on 06/16/24 with nausea/vomiting and non-bloody, watery diarrhea found to have acute gastroenteritis secondary Norovirus infection. An Abdominal X-ray 06/16 revealed mild gaseous distension of the transverse
colon. Course complicated by persistent distension and nausea/vomiting where a repeat CT Abd/pelvis revealed gaseous distension of the right colon with [id number] dilatation of the cecum measuring 7.8 cm and throughout the rest of the remain
colon consistent with a colonic ileus (ie acute colonic pseudo-obstruction) without any significantly dilated small bowel loops identified or other evidence of an obstructive process. Fortunately, her nausea/vomiting have much improved with return
of bowel function with passage of 5-6 episodes of looser stools yesterday evening and one small BM this AM with ongoing dulcolax suppositories. She has been tolerating CLD without difficulty without worsening distension and her abdominal exam is
reassuring. Of note, she was receiving Dilaudid earlier in her admission as well but is not on chronic opioids/narcotics. Clinically, appears her colonic ileus / acute colonic pseudo-obstruction appears to be improving with ongoing bowel function
likely secondary to prior resolving Norovirus infection.
Recommendations:
- Continue CLD today, defer from advancing diet at this time
- IVF to maintain euvolemia, maintain electrolytes K > 4.0 and Mg > 2.0
- Obtain KUB obstruction series tomorrow AM to re-assess right sided colonic dilation / cecal diameter
- Could consider Relistor/Methylnaltrexone tomorrow given recent opioids but defer at this time
- Continue Dulcolax suppositories TiD and would hold off on rectal tubes given her ongoing improving symptoms
- No plans for colonic decompression at this time. May continue Xarelto from GI standpoint
- Encourage frequent ambulation within room as tolerated, OOB, etc
- Rest of care as outlined below
Thank you for allowing me to participate in the care of this patient. Please do not hesitate to call for any further questions. GI team will continue to follow while inpatient.
Original Note:
Consultation
-
Date/Time Consultation Requested: 06/20/24 1234
Date/Time Consultation Performed: 06/21/24 30
Requesting Provider: Dr. Stallworth
Performing Provider: Dr. Art/ETHEL Frank
Reason for Consultation: ileus with colonic involvement, norovirus
Medical History
Chief Complaint / HPI
Chief Complaint: N/V/D
History of Present Illness:
68-year-old female with past medical history including GERD, hiatal hernia, IBS-C, small bowel obstruction secondary to adhesions, surgery with small bowel resection twice in the , factor V Leiden deficiency with history of DVT and PE on Xarelto,
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 difficile, large colon polyp status post removal, restless leg syndrome status post spinal stimulator, anxiety/depression, history of
aspiration pneumonia who presents to the emergency room on 06/16/2024 with nausea, vomiting and diarrhea. Patient was found to have norovirus. She had a CT scan of the abdomen with IV and oral contrast on 06/19/2024 consistent with colonic
dilatation with sigmoid diameter up to 6.2 cm. We are asked to evaluate for the same. The patient presented to the emergency room on 06/16/2020 3 day history of nausea vomiting and diarrhea. She had low-grade fever as well as abdominal cramping.
She did not respond to antiemetics in the emergency room was admitted for further care. She was treated with IV fluids and electrolytes were repleted. Abdominal x-ray showed mild gaseous distention. On the she continued to have significant
abdominal distention with continued nausea vomiting and diarrhea. CT of the abdomen and pelvis was obtained. That showed increasing gaseous distention of the colon with cecum being 7.8 cm. Transverse colon 7.2 cm and rectosigmoid 6.4 cm. There
was no transition point. Significantly dilated small bowel loops identified. No evidence of small bowel obstruction. Patient has not vomited since yesterday. She had 6 episodes of diarrhea last evening. She has not had any further diarrhea
since last night. She is passing flatus. She states that her abdominal distention has just creased some. She is starting to tolerate clear liquids at this point.
Past Medical History
Past Medical History: GERD and Other (Hiatal hernia, IBS-C, small bowel obstruction secondary to adhesions, factor V Leiden, DVT, PE, Sjogren's, purigo nodularis, UTI, colon polyps, restless leg syndrome, aspiration pneumonia)
Past Surgical History: Other (Niland filter, right rotator cuff surgery x 3, liposuction, Galloway's neuroma x 6, port placement,, LENNY/BSO, bilateral elbow surgeries, breast reduction, appendectomy, left rotator cuff repair, small bowel
obstruction x 2, cholecystectomy, right wrist surgery, bilateral total knee replacement, bi)
Social History
Tobacco: Non-Smoker
Alcohol: Occasional (Less than once a month)
Drug: None
Family History
Family History: Other (No family history of gastrointestinal malignancy or IBD)
Allergies / Home Medications
Allergy/AdvReac Type Severity Reaction Status Date / Time
bupropion HCl Allergy Seizure Verified 06/15/24 23:35
[From Wellbutrin]
carbamazepine Allergy TOXICITY/RA Verified 06/15/24 23:35
SH
cephalexin Allergy Rash Verified 06/15/24 23:35
ciprofloxacin Allergy Rash Verified 06/15/24 23:35
codeine [Codeine] Allergy Rash Verified 06/15/24 23:35
droperidol Allergy DYSTONIA Verified 06/15/24 23:35
iron [From Venofer] Allergy Anaphylaxis Verified 06/15/24 23:35
iron sucrose complex Allergy Anaphylaxis Verified 06/15/24 23:35
[From Venofer]
meloxicam Allergy Rash Verified 06/15/24 23:35
metaxalone Allergy Nausea / Verified 06/15/24 23:35
Vomiting
metoclopramide Allergy Rash Verified 06/15/24 23:35
ondansetron HCl [From Zofran] Allergy Rash Verified 06/15/24 23:35
prochlorperazine Allergy SPASMS Verified 06/15/24 23:35
promethazine Allergy Rash Verified 06/15/24 23:35
sulfamethoxazole Allergy Itching, Verified 06/15/24 23:35
[From Bactrim] rash
tetracycline Allergy Rash Verified 06/15/24 23:35
trimethoprim [From Bactrim] Allergy Itching, Verified 06/15/24 23:35
rash
vancomycin [Vancomycin] Allergy TEMP Verified 06/15/24 23:35
103.6F,
SEVERE
RIGORS,
TACHYCARDIA
�Medication �Instructions �Recorded
melatonin 5 mg tablet 10 mg PO HS Sleep 10/11/15
gabapentin 600 mg tablet 600 mg PO DAILY Pain 06/26/16
lubiprostone 24 mcg capsule 24 mcg PO BID 09/17/17
calcium 600 mg-D3 20 mcg-magnesium 1 ea PO BID Supplement 08/06/19
50 ln-Ta-msmdba-clotilde-boron
tablet (Calcium 600-D3 Plus
(mag-zinc))
denosumab 60 mg/mL subcutaneous 60 mg SC [id number] osteoporosis ##0 11/18/19
syringe (Prolia)
cevimeline 30 mg capsule 1 cap PO TID 01/13/23
cyclosporine 0.05 % eye drops in a 1 drp BOTH EYES BID Eye Condition 01/13/23
dropperette (Restasis)
dupilumab 300 mg/2 mL subcutaneous 300 mg SC Q2W Skin Issues 01/13/23
syringe (Dupixent)
gabapentin 600 mg tablet 1,200 mg PO HS Pain 01/13/23
hydroxychloroquine 200 mg tablet 200 mg PO DAILY Autoimmune Disorder 01/13/23
venlafaxine 150 mg 150 mg PO DAILY Mental 01/13/23
capsule,extended release 24 hr Health/Anxiety
bisacodyl 5 mg tablet 10 mg PO HS Constipation 07/10/23
famotidine 40 mg tablet 40 mg PO BID Gastrointestinal Issue 07/10/23
methenamine hippurate 1 gram tablet 1 g PO DAILY Infection 07/10/23
rivaroxaban 10 mg tablet (Xarelto) 10 mg PO DAILY Blood Clot 09/23/23
Prevention/Tx
Uqora Defend 1 cap PO BID 06/16/24
clonazepam 2 mg tablet 2 mg PO HS 06/16/24
dexlansoprazole 60 mg 60 mg PO QPM 06/16/24
capsule,biphase delayed release
mirabegron 50 mg tablet,extended 50 mg PO DAILY 06/16/24
release 24 hr (Myrbetriq)
omega-3 fatty acids 1,000 mg PO BID 06/16/24
levalbuterol tartrate 45 2 inh inhalation Q6H PRN asthma 06/19/24
mcg/actuation aerosol inhaler
(Xopenex HFA)
Review of Systems
-
All other systems: A 12 pt ROS was Negative except as stated above in HPI
Vital Signs
Temp Pulse Resp BP Pulse Ox
97.5 F 65 14 112/46 96
06/20/24 23:30 06/20/24 23:30 06/20/24 23:30 06/20/24 23:30 06/20/24 23:30
Physical Exam
Exam
General: No Apparent Distress
HEENT: Anicteric
Respiratory: Clear
Cardiac: Regular Rhythm
GI: Soft, Non Tender, Normal Bowel Sounds and Distended (Mildly distended)
Musculoskeletal: No Edema
Skin: Warm and Dry
Neuro: AO x 3
Psych: Calm
Results
WBC 4.7 10^3/uL (4.8-10.8) L 06/21/24 06:23
Hgb 11.5 g/dL (12.0-16.0) L 06/21/24 06:23
Hct 35.1 % (37.0-47.0) L 06/21/24 06:23
MCV 95.6 fL (81.0-99.0) 06/21/24 06:23
Plt Count 256 10^3/uL (130-400) 06/21/24 06:23
Absolute Neuts (auto) 2.7 10^3/uL (1.4-6.5) 06/21/24 06:23
Sodium 140 mmol/L (135-145) 06/21/24 06:23
Potassium 4.5 mmol/L (3.5-5.1) 06/21/24 06:23
Chloride 103 mmol/L (98-107) 06/21/24 06:23
Carbon Dioxide 31 mmol/L (22-30) H 06/21/24 06:23
BUN 8 mg/dl (7-17) 06/21/24 06:23
Creatinine 0.9 mg/dL (0.6-1.0) 06/21/24 06:23
Calcium 8.8 mg/dl (8.4-10.2) 06/21/24 06:23
Total Bilirubin 0.5 mg/dl (0.2-1.3) 06/16/24 03:07
AST 22 U/L (14-36) 06/16/24 03:07
ALT 19 U/L (0-35) 06/16/24 03:07
Alkaline Phosphatase 57 U/L (38-126) 06/16/24 03:07
Diagnostic Image Results:
Abd Xray 06/16/2024: Mild gaseous distention of the transverse colon. No evidence for significant bowel wall thickening radiographically.
CT Abd/Pelvis with IV and oral contrast 06/19/24 : IMPRESSION: Gaseous distention of the colon which has increased since abdominal radiograph of June 16, 2024. As described, findings are most suggestive of adynamic ileus with preferential
involvement of the colon.
No significant wall thickening is identified involving the bowel. No evidence for small bowel obstruction. No evidence for free intraperitoneal air. No evidence for stercoral colitis.
Minimal amount of pleural fluid in the posterior and inferior right hemithorax. Parenchymal opacity within the posterior and inferior aspect of both lower lungs, which is likely atelectasis. Linear densities within the left lower lung, which is
likely scarring.
Small to moderate-sized central hiatal hernia, increased from previous examination.
Prior GI Procedures:
EGD: 06/11/23 (Dr. Brown) The lower third of the esophagus was mildly tortuous.
A medium-sized hiatal hernia was present.
The exam of the stomach was otherwise normal.
The examined duodenum was normal.
Colonoscopy: 03/31/24 (Dr. Yen) - Hemorrhoids found on perianal exam.
- The examined portion of the ileum was normal.
- Post mucosectomy scar at the ileocecal valve.
Biopsied. Treated with argon plasma coagulation (APC).
- Nodular mucosa in the ascending colon. Biopsied.
- Internal hemorrhoids. Repeat colonoscopy 1 year.
Friend 09/23/2023 (Dr. Yen) - Preparation of the colon was fair.
- Hemorrhoids found on perianal exam.
- The examined portion of the ileum was normal.
- One 27 mm polyp at the ileocecal valve, removed with
mucosal resection. Resected and retrieved. Treated
with argon plasma coagulation (APC). Clips (MR
conditional) were placed.
- Stool in the transverse colon, in the ascending
colon and in the cecum.
- Diverticulosis in the sigmoid colon.
- Internal hemorrhoids.
- Mucosal resection was performed. Resection and
retrieval were complete. repeat 6 months.
Friend 06/11/23 (Dr. rBown) - Diverticulosis in the sigmoid colon.
- One 30 mm polyp on the ileocecal valve extending to
the proximal ascending colon . Resection not
attempted. Biopsied. Repeat colonoscopy with for complex
polypectomy of the large carpet like polyp on the IC
vlave.
Assessment / Plan
-
68-year-old female with past medical history including GERD, hiatal hernia, IBS-C, small bowel obstruction secondary to adhesions, surgery with small bowel resection twice in the , factor V Leiden deficiency with history of DVT and PE on Xarelto,
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 difficile, large colon polyp status post removal, restless leg syndrome status post spinal stimulator, anxiety/depression, history of aspiration
pneumonia who presents to the emergency room on 06/16/2024 with nausea, vomiting and diarrhea. Patient was found to have norovirus. She had a CT scan of the abdomen with IV and oral contrast on 06/19/2024 consistent with colonic dilatation with
sigmoid diameter up to 6.2 cm. Patient continued with nausea, vomiting and diarrhea up until last night. Symptoms starting to improve. Patient continues to pass flatus. Tolerating clear liquids this morning. Denies any abdominal pain.
Impression:
Norovirus
Dehydration with need for IV fluid repletion
Ileus involving small bowel and colon
History of chronic constipation
Other diagnoses:
GERD
Personal history of colon polyps
Sjogren's
Factor V Leiden with prior history of DVT/PE on Xarelto
History of prior small bowel obstruction with surgery twice in the (no signs currently)
RLS status post spinal stimulator
Plan:
-Continue electrolyte replacement IV fluids
-Continue Dulcolax suppositories every 8 hours for 24 hours.
-Antiemetics as needed
-Try to avoid narcotics
-Continue pantoprazole and famotidine
-Check obstruction series in a.m.
-If with worsening distention consider rectal tube versus decompressive flex sig. Patient on Xarelto. Discussed with patient, if with increased symptoms tell nurse immediately.
-Continue clears today, if imaging and symptoms continue to improve tomorrow we will likely advance diet.
-Further recommendations to be forthcoming.
-Patient has routine colonoscopy with Dr. Yen on 07/14/2024. Patient states she does not want to postpone this.
-
-
Thank you for consultation and allowing me to participate in the patient's care. Please call the song writer GI physician during the after hours with any questions or concerns.
--- NOTE | 2024-06-21 11:44 | CM ---
CM reviewed chart, positive for Norovirus. Patient seen bedside. Patient tearful, eager to go home. Patient on clear liquid diet. CM will continue to follow for all discharge planning needs.
Plan; home when stable.
[2024-06-21] MEDS: ZOFRAN 4 MG IV (14:33)
--- NOTE | 2024-06-21 14:49 | W.PN.HOSP.TC ---
Today's Communication/Plan
-
Continue Dulcolax suppository.
Follow-up with KUB in AM.
Clear liquid diet.
Assessment / Plan
Assessment / Plan
IMPRESSION:
Presentation with intractable nausea, emesis, abdominal cramps and diarrhea.
Suspect acute gastroenteritis.
Dehydration
Metabolic acidosis secondary to gastrointestinal losses.
Hypokalemia.
Hypocalcemia of acute illness
Recent UTI treated with Augmentin
Other conditions:
Asthma
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
Sjogren syndrome.
GERD.
Hiatal hernia.
Restless leg syndrome, status post spinal stimulator.
Anxiety/depression.
Right subclavian port, difficult IV access.
Left lower lobe nodule with benign endobronchial biopsy
PLAN:
Acute gastroenteritis secondary to norovirus
Afebrile and hemodynamically stable, nontoxic-appearing
Abdominal x-ray with mild gaseous distention. No evidence of significant bowel wall thickening
Norovirus PCR positive
Persistent ileus
CT scan of the abdomen with IV and oral contrast on 06/19 consistent with colonic dilatation, mild with sigmoid diameter at 6.2 cm.
Exam remains with slightly distended, although nontender abdomen.
Abdomen remains distended, although relatively benign
Not nauseous but burping
No BM on 06/20.
Avoid narcotics, minimize hydromorphone
IV Tylenol for pain.
Doculax suppository every 8 hours
GI consultation
Monitor closely, may require colonic decompression if progress.
Clear liquid diet
Replete calcium
Antiemetics.
Continue PPI/famotidine.
Hold lubiprostone.
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
Status post IVC filter
Continue Xarelto
Hiatal hernia/GERD
Continue PPI/famotidine.
Aspiration precautions with nausea and vomiting.
Sjogren's syndrome
Continue hydroxychloroquine
Restless leg syndrome status post spinal stimulator
Continue gabapentin
Anxiety/depression/insomnia continue venlafaxine. Clonazepam
Full code
DVT prophylaxis Xarelto
Anticipated Discharge: 24 - 48 hours
Subjective/Interval History
-
Date of Service: June 21, 2024
Objective Data
-
Labs:
Laboratory Results
06/21/24
06:23
WBC 4.7 L
Hgb 11.5 L
Hct 35.1 L
Plt Count 256
Sodium 140
Potassium 4.5
Chloride 103
Carbon Dioxide 31 H
BUN 8
Creatinine 0.9
Glucose 86
Calcium 8.8
Vital Signs:
Vital Signs
Temp Pulse Resp BP Pulse Ox
98.1 F 74 16 106/73 96
06/21/24 08:23 06/21/24 08:23 06/21/24 08:23 06/21/24 08:23 06/20/24 23:30
I&O
06/20/24 06/21/24 06/22/24
06:59 06:59 06:59
Intake Total 780 / 780 720 / 720
Balance 780 / 780 720 / 720
Physical Exam
-
General: Well Developed, Well Nourished and No Apparent Distress
HEENT: Normocephalic, Atraumatic, Moist Mucous Membranes and Other (chest port noted )
Respiratory: Clear to Auscultation (significantly clearer today) and Rhonchi (essentially resolved)
Cardiac: Regular Rhythm and S1/S2
GI: Soft, Nontender, Nondistended and Normal Bowel Sounds
Musculoskeletal: No Edema
Skin: Warm
Neuro: Awake and AO x 3
Psych: Calm
[2024-06-21 15:09] VITALS: BMI 26.4
[2024-06-21 16:00] VITALS: BP 114/59
[2024-06-21] MEDS: PROTONIX 40 MG PO (17:30)
[2024-06-21] MEDS: OFIRMEV 100 IV (20:11)
[2024-06-21] MEDS: KLONOPIN 2 MG PO (22:25)
[2024-06-21] MEDS: NEURONTIN 1200 MG PO (22:26)
[2024-06-21] MEDS: MELATONIN 10 MG PO (22:27)
[2024-06-21 23:30] VITALS: BP 100/50
--- NOTE | 2024-06-22 06:02 | W.PN.GI.CBS2 ---
Today's Communication / Plan
-
Start rectal tube and give Methylnaltrexone (Relistor) as well given persistent colonic ileus. Favor keeping NPO today. Rest of care as outlined below.
Assessment / Plan
-
#Norovirus Gastroenteritis c/b
#Colonic Ileus (Acute Colon Pseudo-obstruction)
#Hx of Chronic Constipation
#Hx of Prior SBO (s/p prior SB resections )
#Hx of Factor V Leiden c/b #DVT/PE (on Xarelto)
Ms. Morataya is a 68 y.o female with past medical history of GERD, IBS-C, hx of Sjogren's syndrome, RLS (s/p spinal-cord stimulator), small bowel obstruction (2/2 adhesions s/p SB resections x 2 in ), factor V Leiden deficiency c/b DVT/PE (on
xarelto) who initially presented on 06/16/24 with nausea/vomiting and non-bloody, watery diarrhea found to have acute gastroenteritis secondary Norovirus infection. An Abdominal X-ray 06/16 revealed mild gaseous distension of the transverse colon.
Course complicated by persistent distension and nausea/vomiting where a repeat CT Abd/pelvis revealed gaseous distension of the right colon with [id number] dilatation of the cecum measuring 7.8 cm and throughout the rest of the remain colon
consistent with a colonic ileus (ie acute colonic pseudo-obstruction) without any significantly dilated small bowel loops identified or other evidence of an obstructive process. Fortunately, her nausea/vomiting have much improved with return of
bowel function with passage of 5-6 episodes of looser stools yesterday evening and one small BM this AM with ongoing dulcolax suppositories. She has been tolerating CLD without difficulty without worsening distension and her abdominal exam is
reassuring. Of note, she was receiving Dilaudid earlier in her admission as well but is not on chronic opioids/narcotics. Clinically, appears her colonic ileus / acute colonic pseudo-obstruction appears to be improving with ongoing bowel function
likely secondary to prior resolving Norovirus infection.
X-ray Obstruction Series 06/22/24- Impression: (-) for bowel obstruction/pneumoperitoneum, still with persistent mild diffuse colonic distension consistent with mild colonic ileus, appears to be somewhat improved in regards to prior cecal dilatation
Recommendations:
- Favor keeping NPO today as without any recent flatus/bowel movement
- IVF to maintain euvolemia, maintain electrolytes K > 4.0 and Mg > 2.0
- Recent X-ray obstruction series with improved dilatation, however concern as without any recent passage of flatus or BM
- Start rectal tube today along with Relistor (Methylnaltrexone) given recent opioids. Can re-dose in 48 hrs
- Continue Dulcolax suppositories TiD from below along with starting rectal tube this afternoon
- No plans for colonic decompression at this time. If worsening dilatation, would consider IV Neostigmine
- Continue to monitor serial abdominal exams
- May continue Xarelto from GI standpoint
- Encourage frequent ambulation within room as tolerated, OOB, etc
- Favor stopping all opioids, limit as much as possible to not worsen colonic dilatation
- Rest of care as outlined below
GI will continue to follow while inpatient. Please call with any questions or concerns. Discussed with primary internal medicine team.
Subjective
Subjective
Date of Service: June 22, 2024
- No acute events overnight
Reports feeling well and better from yesterday, however denies any passage of flatus or recent BM. Was passing flatus yesterday but denies any passage of gas overnight or this AM. No nausea or vomiting.
Objective
Data Reviewed
Laboratory Data:
Laboratory Results
06/21/24 06:23
06/21/24 06:23
Laboratory Results
Total Bilirubin 0.5 mg/dl (0.2-1.3) 06/16/24 03:07
AST 22 U/L (14-36) 06/16/24 03:07
ALT 19 U/L (0-35) 06/16/24 03:07
Alkaline Phosphatase 57 U/L (38-126) 06/16/24 03:07
Vital Signs and I&O:
Vital Signs
Temp Pulse Resp BP Pulse Ox
98.0 F 65 14 100/50 95
06/21/24 23:30 06/21/24 23:30 06/21/24 23:30 06/21/24 23:30 06/21/24 23:30
I&O
06/20/24 06/21/24 06/22/24
06:59 06:59 06:59
Intake Total 780 / 780 720 / 720 1380 / 1380
Balance 780 / 780 720 / 720 1380 / 1380
Physical Exam
Physical Exam
HEENT: Anicteric and Moist mucous membranes
Cardiology: Normal Sinus Rhythm
Pulmonary: Other (Normal WOB on room air)
GI: Soft, Distended (Mild distension), Non Tender and Other (Hypoactive bowel sounds)
Extremities: No Edema
Neuro: Non Focal
[2024-06-22 07:00] VITALS: BP 114/53
[2024-06-22] MEDS: XARELTO 10 MG PO (09:26)
[2024-06-22] MEDS: PLAQUENIL 200 MG PO (09:26)
[2024-06-22] MEDS: NEURONTIN 600 MG PO (09:26)
[2024-06-22] MEDS: RESTASIS 0.05% OPHTHALMIC EMULSION 1 DROPS BOTH EYES ×2 (09:26→20:59)
[2024-06-22] MEDS: EFFEXOR XR 150 MG PO (09:27)
[2024-06-22] MEDS: PEPCID 40 MG PO ×2 (09:27→21:00)
[2024-06-22] MEDS: HIPREX 1 GRAM PO (09:29)
[2024-06-22] MEDS: MYRBETRIQ EXTENDED RELEASE 50 MG PO (09:29)
[2024-06-22] MEDS: TYLENOL 650 MG PO (09:34)
[2024-06-22] MEDS: RELISTOR 12 MG SC (13:50)
--- NOTE | 2024-06-22 14:30 | PTCARENOTE ---
24 F rectal trumpet inserted per rectum as ordered, ortiz bag to gravity.
[2024-06-22 15:00] VITALS: BP 109/80
[2024-06-22] MEDS: D5/0.45%NSS with KCL 20 MEQ 1000 IV (16:51)
[2024-06-22] MEDS: PROTONIX 40 MG PO (16:52)
--- NOTE | 2024-06-22 17:24 | PTCARENOTE ---
Pt states rectal tube extremely uncomfortable, asked for removal. Removed, pt heavily encouraged to walk in halls. Abdomen slightly distended, hypoactive BS noted, denies n/v.
--- NOTE | 2024-06-22 17:29 | W.PN.HOSP.TC ---
Today's Communication/Plan
-
Rectal tube
N.p.o.
Assessment / Plan
Assessment / Plan
IMPRESSION:
Presentation with intractable nausea, emesis, abdominal cramps and diarrhea.
Suspect acute gastroenteritis.
Dehydration
Metabolic acidosis secondary to gastrointestinal losses.
Hypokalemia.
Hypocalcemia of acute illness
Recent UTI treated with Augmentin
Other conditions:
Asthma
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
Sjogren syndrome.
GERD.
Hiatal hernia.
Restless leg syndrome, status post spinal stimulator.
Anxiety/depression.
Right subclavian port, difficult IV access.
Left lower lobe nodule with benign endobronchial biopsy
PLAN:
Acute gastroenteritis secondary to norovirus
Afebrile and hemodynamically stable, nontoxic-appearing
Abdominal x-ray with mild gaseous distention. No evidence of significant bowel wall thickening
Norovirus PCR positive
Persistent ileus
CT scan of the abdomen with IV and oral contrast on 06/19 consistent with colonic dilatation, mild with sigmoid diameter at 6.2 cm.
Reports no flatus over the past 24 hours
Exam with improved abdominal distention.
Obstruction series with no radiographic evidence of bowel obstruction or pneumoperitoneum. Mild diffuse colonic distention suspicious for mild colonic ileus
Rectal tube ordered by GI along with dose of Relastor
Avoid narcotics, minimize hydromorphone
IV Tylenol for pain.
Doculax suppository every 8 hours
Hold lubiprostone.
Hypocalcemia improved
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
Status post IVC filter
Continue Xarelto
Hiatal hernia/GERD
Continue PPI/famotidine.
Aspiration precautions with nausea and vomiting.
Sjogren's syndrome
Continue hydroxychloroquine
Restless leg syndrome status post spinal stimulator
Continue gabapentin
Anxiety/depression/insomnia continue venlafaxine. Clonazepam
Full code
DVT prophylaxis Xarelto
Anticipated Discharge: > 48 hours
Subjective/Interval History
-
Date of Service: June 22, 2024
Objective Data
-
Vital Signs:
Vital Signs
Temp Pulse Resp BP Pulse Ox
98.8 F 75 16 109/80 99
06/22/24 15:00 06/22/24 15:00 06/22/24 15:00 06/22/24 15:00 06/22/24 15:00
I&O
06/21/24 06/22/24 06/23/24
06:59 06:59 06:59
Intake Total 720 / 720 1380 / 1380
Balance 720 / 720 1380 / 1380
Physical Exam
-
General: Well Developed, Well Nourished and No Apparent Distress
HEENT: Normocephalic, Atraumatic, Moist Mucous Membranes and Other (chest port noted )
Respiratory: Clear to Auscultation (significantly clearer today) and Rhonchi (essentially resolved)
Cardiac: Regular Rhythm and S1/S2
GI: Soft, Nontender, Nondistended and Normal Bowel Sounds
Musculoskeletal: No Edema
Skin: Warm
Neuro: Awake and AO x 3
Psych: Calm
[2024-06-22] MEDS: MELATONIN 10 MG PO (21:00)
[2024-06-22] MEDS: NEURONTIN 1200 MG PO (21:01)
[2024-06-22] MEDS: KLONOPIN 2 MG PO (21:07)
[2024-06-22 23:20] VITALS: BP 102/57
[2024-06-23] MEDS: D5/0.45%NSS with KCL 20 MEQ 1000 IV ×2 (02:41→13:51)
[2024-06-23 05:42] LABS: Blood Urea Nitrogen 10 mg/dl (7-17); Carbon Dioxide 27 mmol/L (22-30); Chloride 105 mmol/L (98-107); Estimated Creatinine Clearance 42 ml/min; Glucose 104 mg/dl (70-99); Potassium 4.2 mmol/L (3.5-5.1); Sodium 138 mmol/L (135-145); eGFR 54.06
--- NOTE | 2024-06-23 06:37 | W.PN.GI.CBS2 ---
Today's Communication / Plan
-
Improving symptoms with less distension and passing flatus. Okay to restart CLD today and start dulcolax suppositories as unable to tolerate previous rectal tube. Plan to repeat KUB tomorrow AM and consider re-dosing Methylnaltrexone tomorrow as
well. Rest of care as outlined below.
Assessment / Plan
-
#Norovirus Gastroenteritis c/b
#Colonic Ileus (Acute Colon Pseudo-obstruction)
#Hx of Chronic Constipation
#Hx of Prior SBO (s/p prior SB resections )
#Hx of Factor V Leiden c/b #DVT/PE (on Xarelto)
Ms. Morataya is a 68 y.o female with past medical history of GERD, IBS-C, hx of Sjogren's syndrome, RLS (s/p spinal-cord stimulator), small bowel obstruction (2/2 adhesions s/p SB resections x 2 in ), factor V Leiden deficiency c/b DVT/PE (on
xarelto) who initially presented on 06/16/24 with nausea/vomiting and non-bloody, watery diarrhea found to have acute gastroenteritis secondary Norovirus infection. An Abdominal X-ray 06/16 revealed mild gaseous distension of the transverse colon.
Course complicated by persistent distension and nausea/vomiting where a repeat CT Abd/pelvis revealed gaseous distension of the right colon with [id number] dilatation of the cecum measuring 7.8 cm and throughout the rest of the remain colon
consistent with a colonic ileus (ie acute colonic pseudo-obstruction) without any significantly dilated small bowel loops identified or other evidence of an obstructive process. Fortunately, her nausea/vomiting have much improved with return of
bowel function with passage of 5-6 episodes of looser stools yesterday evening and one small BM this AM with ongoing dulcolax suppositories. She has been tolerating CLD without difficulty without worsening distension and her abdominal exam is
reassuring. Of note, she was receiving Dilaudid earlier in her admission as well but is not on chronic opioids/narcotics. Clinically, appears her colonic ileus / acute colonic pseudo-obstruction appears to be improving with ongoing bowel function
likely secondary to prior resolving Norovirus infection.
X-ray Obstruction Series 06/22/24- Impression: (-) for bowel obstruction/pneumoperitoneum, still with persistent mild diffuse colonic distension consistent with mild colonic ileus, appears to be somewhat improved in regards to prior cecal dilatation
S/p methylnaltrexone on 06/22 and trial of rectal tube (however, unable to tolerate). Appears to be improving with less distension and passing flatus suggesting return of bowel function, however still without any significant bowel movement. Suspect
secondary to resolving previous Norovirus infection and component of opioid-induced constipation playing a role as well given her recent opioids this admission.
Recommendations:
- Okay to restart CLD today given improving symptoms
- IVF to maintain euvolemia, maintain electrolytes K > 4.0 and Mg > 2.0
- Obtain repeat KUB tomorrow, 06/24
- S/p methylnaltrexone 12 mg subcut on 06/22, can re-dose tomorrow AM
- Unable to tolerate rectal tube on 06/22
- Will restart Dulcolax suppositories TiD from below to help facilitate a BM
- No plans for colonic decompression at this time given improving symptoms and only with mild dilatation on repeat imaging
- If worsening dilatation, would consider IV Neostigmine rather than flex-sig given her current anticoagulation and co-morbidities
- Continue to monitor serial abdominal exams
- May continue Xarelto from GI standpoint
- Encourage frequent ambulation within room as tolerated, OOB, etc
- Favor stopping all opioids, limit as much as possible to not worsen colonic dilatation
- Rest of care as outlined below
Discussed with primary internal medicine team this AM. GI will continue to follow while inpatient. Please call with any questions or concerns.
Subjective
Subjective
Date of Service: June 23, 2024
- S/p methylnaltrexone on 06/22 and trial of rectal tube (however, unable to tolerate)
- Otherwise, no acute events overnight
Resting comfortably, reports feeling better but still without any recent BM. However, does note passing flatus overnight and this AM. Endorses improving abdominal distension without any pain/discomfort or other nausea/vomiting. Has been trying to
walk and ambulate about the room as tolerated. Wishes to try clear liquids again today. Couldn't tolerate rectal tube due to discomfort, but willing to try dulcolax suppositories this AM.
Objective
Data Reviewed
Laboratory Data:
Laboratory Results
06/21/24 06:23
06/23/24 04:41
Laboratory Results
Total Bilirubin 0.5 mg/dl (0.2-1.3) 06/16/24 03:07
AST 22 U/L (14-36) 06/16/24 03:07
ALT 19 U/L (0-35) 06/16/24 03:07
Alkaline Phosphatase 57 U/L (38-126) 06/16/24 03:07
Vital Signs and I&O:
Vital Signs
Temp Pulse Resp BP Pulse Ox
97.8 F 69 16 102/57 98
06/22/24 23:20 06/22/24 23:20 06/22/24 23:20 06/22/24 23:20 06/22/24 23:20
I&O
06/21/24 06/22/24 06/23/24
06:59 06:59 06:59
Intake Total 720 / 720 1380 / 1380 1660 / 1660
Balance 720 / 720 1380 / 1380 1660 / 1660
Physical Exam
Physical Exam
HEENT: Anicteric and Moist mucous membranes
Cardiology: Normal Sinus Rhythm
Pulmonary: Other (Normal WOB on room air)
GI: Soft, Distended (Minimal distension throughout abdomen) and Non Tender
Extremities: No Edema
Neuro: Non Focal
[2024-06-23 07:00] VITALS: BP 108/64
[2024-06-23] MEDS: NEURONTIN 600 MG PO (08:45)
[2024-06-23] MEDS: MYRBETRIQ EXTENDED RELEASE 50 MG PO (08:45)
[2024-06-23] MEDS: XARELTO 10 MG PO (08:45)
[2024-06-23] MEDS: PEPCID 40 MG PO (08:45)
[2024-06-23] MEDS: PLAQUENIL 200 MG PO (08:45)
[2024-06-23] MEDS: EFFEXOR XR 150 MG PO (08:45)
[2024-06-23] MEDS: HIPREX 1 GRAM PO (08:45)
[2024-06-23] MEDS: RESTASIS 0.05% OPHTHALMIC EMULSION 1 DROPS BOTH EYES ×2 (08:45→21:06)
[2024-06-23 11:00] VITALS: BP 113/60
--- NOTE | 2024-06-23 14:15 | CM ---
CM reviewed chart, patient seen bedside. Patient reports she is feeling better today. GI following. Patient denies needs upon discharge. CM will continue to follow for all discharge planning needs.
Plan; home no needs anticipated, watch for VN needs.
[2024-06-23 15:00] VITALS: BP 124/62
--- NOTE | 2024-06-23 16:01 | W.PN.HOSP.TC ---
Today's Communication/Plan
-
Continue management of ileus.
Clear liquid diet
Doculax
Increase activity
Avoid narcotic
Assessment / Plan
Assessment / Plan
IMPRESSION:
Presentation with intractable nausea, emesis, abdominal cramps and diarrhea.
Suspect acute gastroenteritis.
Dehydration
Metabolic acidosis secondary to gastrointestinal losses.
Hypokalemia.
Hypocalcemia of acute illness
Recent UTI treated with Augmentin
Other conditions:
Asthma
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
Sjogren syndrome.
GERD.
Hiatal hernia.
Restless leg syndrome, status post spinal stimulator.
Anxiety/depression.
Right subclavian port, difficult IV access.
Left lower lobe nodule with benign endobronchial biopsy
PLAN:
Acute gastroenteritis secondary to norovirus
Afebrile and hemodynamically stable, nontoxic-appearing
Abdominal x-ray with mild gaseous distention. No evidence of significant bowel wall thickening
Norovirus PCR positive
Persistent ileus
CT scan of the abdomen with IV and oral contrast on 06/19 consistent with colonic dilatation, mild with sigmoid diameter at 6.2 cm.
Reports no flatus over the past 24 hours
Exam with improved abdominal distention.
Obstruction series with no radiographic evidence of bowel obstruction or pneumoperitoneum. Mild diffuse colonic distention suspicious for mild colonic ileus
Attempted rectal tube on 06/22, was not able to tolerate.
Status post Relistor on 06/22
Avoid narcotics, minimize hydromorphone
IV Tylenol for pain.
Doculax suppository every 8 hours
Hold lubiprostone.
Hypocalcemia improved
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
Status post IVC filter
Continue Xarelto
Hiatal hernia/GERD
Continue PPI/famotidine.
Aspiration precautions with nausea and vomiting.
Sjogren's syndrome
Continue hydroxychloroquine
Restless leg syndrome status post spinal stimulator
Continue gabapentin
Anxiety/depression/insomnia continue venlafaxine. Clonazepam
Full code
DVT prophylaxis Xarelto
Anticipated Discharge: 24 - 48 hours
Subjective/Interval History
-
Date of Service: June 23, 2024
Objective Data
-
Labs:
Laboratory Results
06/23/24
04:41
Sodium 138
Potassium 4.2
Chloride 105
Carbon Dioxide 27
BUN 10
Creatinine 1.1 H
Glucose 104 H
Calcium 8.0 L
Vital Signs:
Vital Signs
Temp Pulse Resp BP Pulse Ox
97.7 F 64 16 113/60 97
06/23/24 11:00 06/23/24 11:00 06/23/24 11:00 06/23/24 11:00 06/23/24 11:00
I&O
06/22/24 06/23/24 06/24/24
06:59 06:59 06:59
Intake Total 1380 / 1380 1660 / 1660
Balance 1380 / 1380 1660 / 1660
Physical Exam
-
General: Well Developed, Well Nourished and No Apparent Distress
HEENT: Normocephalic, Atraumatic, Moist Mucous Membranes and Other (chest port noted )
Respiratory: Clear to Auscultation (significantly clearer today) and Rhonchi (essentially resolved)
Cardiac: Regular Rhythm and S1/S2
GI: Soft, Nontender, Nondistended and Normal Bowel Sounds
Musculoskeletal: No Edema
Skin: Warm
Neuro: Awake and AO x 3
Psych: Calm
[2024-06-23] MEDS: NON-FORMULARY ITEM 300 UNIT SC (16:25)
[2024-06-23] MEDS: PROTONIX 40 MG PO (16:25)
[2024-06-23] MEDS: MELATONIN 10 MG PO (21:07)
[2024-06-23] MEDS: NEURONTIN 1200 MG PO (21:08)
[2024-06-23] MEDS: KLONOPIN 2 MG PO (21:11)
[2024-06-23 23:20] VITALS: BP 109/56
[2024-06-24] MEDS: D5/0.45%NSS with KCL 20 MEQ IV (05:17)
[2024-06-24 05:54] LABS: % Basophils 0.7 % (0-2); % Eosinophils 3.9 % (0-6); % Lymphocytes 31.1 % (20.5-51.1); % Monocytes 9.4 % (1.7-9.3); % Neutrophils 53.9 % (42.2-75.2); Absolute Eosinophils 0.2 10^3/uL (0-0.7); Absolute Lymphocytes 1.3 10^3/uL (1.2-3.4); Absolute Monocytes 0.4 10^3/uL (0.1-0.6); Absolute Neutrophils 2.2 10^3/uL (1.4-6.5); Hematocrit 36.6 % (37.0-47.0); Hemoglobin 11.6 g/dL (12.0-16.0); Mean Corp Hgb Conc. 31.7 g/dL (33.0-37.0); Mean Corpuscular Hgb 30.7 pg (27.0-31.0); Mean Corpuscular Volume 96.8 fL (81.0-99.0); Mean Platelet Volume 9.3 fL (7.4-10.4); Nucleated Red Blood Cells % 0 %; Platelet Count 303 10^3/uL (130-400); Red Blood Cell Count 3.78 10^6/uL (4.20-5.40); Red Cell Dist. Width 13.3 % (11.5-14.5); White Blood Cell Count 4.2 10^3/uL (4.8-10.8)
--- NOTE | 2024-06-24 05:57 | W.PN.GI.CBS2 ---
Today's Communication / Plan
-
Symptoms appear to be improve after recent Relistor, will re-dose again this afternoon. Advance diet up to fulls given recent KUB which appears unchanged but previous cecal dilatation appears improved. Will give additional dose of Relistor this
afternoon and continue to reassess bowel function. Rest of care as outlined below.
Assessment / Plan
-
#Norovirus Gastroenteritis c/b
#Colonic Ileus (Acute Colon Pseudo-obstruction)
#Hx of Chronic Constipation
#Hx of Prior SBO (s/p prior SB resections )
#Hx of Factor V Leiden c/b #DVT/PE (on Xarelto)
Ms. Morataya is a 68 y.o female with past medical history of GERD, IBS-C, hx of Sjogren's syndrome, RLS (s/p spinal-cord stimulator), small bowel obstruction (2/2 adhesions s/p SB resections x 2 in ), factor V Leiden deficiency c/b DVT/PE (on
xarelto) who initially presented on 06/16/24 with nausea/vomiting and non-bloody, watery diarrhea found to have acute gastroenteritis secondary Norovirus infection. An Abdominal X-ray 06/16 revealed mild gaseous distension of the transverse colon.
Course complicated by persistent distension and nausea/vomiting where a repeat CT Abd/pelvis revealed gaseous distension of the right colon with [id number] dilatation of the cecum measuring 7.8 cm and throughout the rest of the remain colon
consistent with a colonic ileus (ie acute colonic pseudo-obstruction) without any significantly dilated small bowel loops identified or other evidence of an obstructive process. Fortunately, her nausea/vomiting have much improved with return of
bowel function with passage of 5-6 episodes of looser stools yesterday evening and one small BM this AM with ongoing dulcolax suppositories. She has been tolerating CLD without difficulty without worsening distension and her abdominal exam is
reassuring. Of note, she was receiving Dilaudid earlier in her admission as well but is not on chronic opioids/narcotics. Clinically, appears her colonic ileus / acute colonic pseudo-obstruction appears to be improving with ongoing bowel function
likely secondary to prior resolving Norovirus infection.
X-ray Obstruction Series 06/22/24- Impression: (-) for bowel obstruction/pneumoperitoneum, still with persistent mild diffuse colonic distension consistent with mild colonic ileus, appears to be somewhat improved in regards to prior cecal dilatation
S/p methylnaltrexone on 06/22 and trial of rectal tube (however, unable to tolerate). Appears to be improving with less distension and passing flatus suggesting return of bowel function, however still without any significant bowel movement. Suspect
secondary to resolving previous Norovirus infection and component of opioid-induced constipation playing a role as well given her recent opioids this admission.
Repeat KUB 06/24/24 with mild distention of the left side of the transverse colon, similar to prior and air-fluid levels within the colon consistent with persistent mild colonic ileus. Upon review of imaging, previous cecal diameter appears to have
been improved
Recommendations:
- May advance up to full liquids
- Maintain electrolytes K > 4.0 and Mg > 2.0
- S/p methylnaltrexone 12 mg subcut on 06/22, will re-dose this afternoon given improvement after prior dose of Methylnaltrexone
- Unable to tolerate rectal tube on 06/22
- Continue Dulcolax suppositories TiD from below to help facilitate a BM and decrease gas
- No plans for colonic decompression at this time given improving symptoms and only with mild dilatation on repeat KUB
- If worsening dilatation, would consider IV Neostigmine rather than flex-sig given her current anticoagulation and co-morbidities
- Continue to monitor serial abdominal exams
- May continue Xarelto from GI standpoint
- Encourage frequent ambulation within room as tolerated, OOB, etc
- Favor stopping all opioids, limit as much as possible to not worsen colonic dilatation
- Rest of care as outlined below
Discussed with primary internal medicine team. GI will continue to follow while inpatient. Please call with any questions or concerns.
Subjective
Subjective
Date of Service: June 24, 2024
- No acute events overnight
- Repeat KUB 06/24/24 with mild distention of the left side of the transverse colon, similar to prior and air-fluid levels within the colon consistent with persistent mild colonic ileus. Upon review of imaging, previous cecal diameter appears to
have been improved
Reports improving distension and without any pain/discomfort. Hopes to go home as she reports feeling better. Passing flatus but without any significant BM, only small liquid stool. No other nausea/vomiting.
Objective
Data Reviewed
Laboratory Data:
Laboratory Results
06/24/24 05:15
Laboratory Results
Total Bilirubin 0.5 mg/dl (0.2-1.3) 06/16/24 03:07
AST 22 U/L (14-36) 06/16/24 03:07
ALT 19 U/L (0-35) 06/16/24 03:07
Alkaline Phosphatase 57 U/L (38-126) 06/16/24 03:07
Vital Signs and I&O:
Vital Signs
Temp Pulse Resp BP Pulse Ox
97.7 F 69 16 109/56 98
06/23/24 23:20 06/23/24 23:20 06/23/24 23:20 06/23/24 23:20 06/23/24 23:20
I&O
06/22/24 06/23/24 06/24/24
06:59 06:59 06:59
Intake Total 1380 / 1380 1660 / 1660 960 / 960
Balance 1380 / 1380 1660 / 1660 960 / 960
Physical Exam
Physical Exam
HEENT: Anicteric and Moist mucous membranes
Cardiology: Normal Sinus Rhythm
Pulmonary: Other (Normal WOB on room air)
GI: Soft, Non Distended and Non Tender
Extremities: No Edema
Neuro: Non Focal
[2024-06-24 06:22] LABS: ALT (SGPT) 19 U/L (0-35); AST (SGOT) 22 U/L (14-36); Albumin 3.1 g/dl (3.5-5.0); Alkaline Phosphatase 53 U/L (38-126); Blood Urea Nitrogen 8 mg/dl (7-17); Carbon Dioxide 26 mmol/L (22-30); Chloride 107 mmol/L (98-107); Estimated Creatinine Clearance 46 ml/min; Glucose 92 mg/dl (70-99); Potassium 4.6 mmol/L (3.5-5.1); Sodium 138 mmol/L (135-145); Total Bilirubin 0.6 mg/dl (0.2-1.3); Total Protein 5.4 g/dl (6.3-8.2); eGFR > 60.00
[2024-06-24 08:10] VITALS: BP 120/65
[2024-06-24] MEDS: MYRBETRIQ EXTENDED RELEASE 50 MG PO (08:56)
[2024-06-24] MEDS: HIPREX 1 GRAM PO (08:56)
[2024-06-24] MEDS: NEURONTIN 600 MG PO (08:57)
[2024-06-24] MEDS: PEPCID 20 MG PO (08:57)
[2024-06-24] MEDS: EFFEXOR XR 150 MG PO (08:57)
[2024-06-24] MEDS: PLAQUENIL 200 MG PO (08:57)
[2024-06-24] MEDS: XARELTO 10 MG PO (08:57)
[2024-06-24] MEDS: RESTASIS 0.05% OPHTHALMIC EMULSION 1 DROPS BOTH EYES ×2 (08:58→21:39)
[2024-06-24] MEDS: RELISTOR 12 MG SC (15:19)
[2024-06-24] MEDS: PROTONIX 40 MG PO (15:22)
--- NOTE | 2024-06-24 15:54 | W.PN.HOSP.TC ---
Today's Communication/Plan
-
Full liquid diet
Repeat Relistor.
Assessment / Plan
Assessment / Plan
IMPRESSION:
Presentation with intractable nausea, emesis, abdominal cramps and diarrhea.
Suspect acute gastroenteritis.
Dehydration
Metabolic acidosis secondary to gastrointestinal losses.
Hypokalemia.
Hypocalcemia of acute illness
Recent UTI treated with Augmentin
Other conditions:
Asthma
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
Sjogren syndrome.
GERD.
Hiatal hernia.
Restless leg syndrome, status post spinal stimulator.
Anxiety/depression.
Right subclavian port, difficult IV access.
Left lower lobe nodule with benign endobronchial biopsy
PLAN:
Acute gastroenteritis secondary to norovirus
Afebrile and hemodynamically stable, nontoxic-appearing
Abdominal x-ray with mild gaseous distention. No evidence of significant bowel wall thickening
Norovirus PCR positive
Persistent ileus
CT scan of the abdomen with IV and oral contrast on 06/19 consistent with colonic dilatation, mild with sigmoid diameter at 6.2 cm.
Reports no flatus over the past 24 hours
Exam with improved abdominal distention.
Obstruction series with no radiographic evidence of bowel obstruction or pneumoperitoneum. Mild diffuse colonic distention suspicious for mild colonic ileus
Attempted rectal tube on 06/22, was not able to tolerate.
Status post Relistor on 06/22
Avoid narcotics, minimize hydromorphone
IV Tylenol for pain.
Doculax suppository every 8 hours
Follow-up KUB 06/24 stable
Clinically improving with less abdominal distention and nausea
Full liquid diet
Repeat Relistor on 06/24
Hold lubiprostone.
Hypocalcemia improved
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
Status post IVC filter
Continue Xarelto
Hiatal hernia/GERD
Continue PPI/famotidine.
Aspiration precautions with nausea and vomiting.
Sjogren's syndrome
Continue hydroxychloroquine
Restless leg syndrome status post spinal stimulator
Continue gabapentin
Anxiety/depression/insomnia continue venlafaxine. Clonazepam
Full code
DVT prophylaxis Xarelto
Anticipated Discharge: 24 - 48 hours
Subjective/Interval History
-
Date of Service: June 24, 2024
Objective Data
-
Labs:
Laboratory Results
06/24/24
05:15
WBC 4.2 L
Hgb 11.6 L
Hct 36.6 L
Plt Count 303
Sodium 138
Potassium 4.6
Chloride 107
Carbon Dioxide 26
BUN 8
Creatinine 1.0
Glucose 92
Calcium 8.0 L
Total Bilirubin 0.6
AST 22
ALT 19
Alkaline Phosphatase 53
Vital Signs:
Vital Signs
Temp Pulse Resp BP Pulse Ox
98.0 F 72 18 120/65 99
06/24/24 08:10 06/24/24 08:10 06/24/24 08:10 06/24/24 08:10 06/24/24 08:45
I&O
06/23/24 06/24/24 06/25/24
06:59 06:59 06:59
Intake Total 1659
Balance 1659
Physical Exam
-
General: Well Developed, Well Nourished and No Apparent Distress
HEENT: Normocephalic, Atraumatic, Moist Mucous Membranes and Other (chest port noted )
Respiratory: Clear to Auscultation (significantly clearer today) and Rhonchi (essentially resolved)
Cardiac: Regular Rhythm and S1/S2
GI: Soft, Nontender, Nondistended and Normal Bowel Sounds
Musculoskeletal: No Edema
Skin: Warm
Neuro: Awake and AO x 3
Psych: Calm
[2024-06-24 16:00] VITALS: BP 116/60
[2024-06-24] MEDS: KLONOPIN 2 MG PO (21:39)
[2024-06-24] MEDS: MELATONIN 10 MG PO (21:39)
[2024-06-24] MEDS: NEURONTIN 1200 MG PO (21:39)
[2024-06-24 23:29] VITALS: BP 115/63
[2024-06-25 07:30] VITALS: BP 124/59
[2024-06-25] MEDS: NEURONTIN 600 MG PO (07:59)
[2024-06-25] MEDS: MYRBETRIQ EXTENDED RELEASE 50 MG PO (07:59)
[2024-06-25] MEDS: HIPREX 1 GRAM PO (07:59)
[2024-06-25] MEDS: PEPCID 20 MG PO (08:02)
[2024-06-25] MEDS: RESTASIS 0.05% OPHTHALMIC EMULSION 1 DROPS BOTH EYES ×2 (08:02→20:39)
[2024-06-25] MEDS: XARELTO 10 MG PO (08:03)
[2024-06-25] MEDS: EFFEXOR XR 150 MG PO (08:03)
[2024-06-25] MEDS: PLAQUENIL 200 MG PO (08:03)
--- NOTE | 2024-06-25 11:07 | CM ---
Chart reviewed and diet continues to advance home when stable, no needs.
Plan; Home no needs when stable.
--- NOTE | 2024-06-25 13:17 | PN.CDI ---
CDI
- -
CDI:
Physician Documentation Request
Admit Date: 06/16/24 11:11
Dear Doctor Latia,
Clinical Indicators:
Patient admitted with suspected acute gastroenteritis & dehydration.
Cr/GFR trend:
06/18/24 06/19/24 06/23/24
05:10 05:16 04:41
Creatinine 0.7 0.7 1.1 H
eGFR > 60.00 > 60.00 54.06
Please clarify which of the following accurately represents the patient's renal status:
JAE
Rise in creatinine only, clinically insignificant
Other
Criteria for JAE*
1 Increase in serum creatinine by > or = to 0.3 mg/dL (> or = to 26.5 micromol/L) within 48 hours, OR
2 Increase in serum creatinine to > or = to 1.5 times baseline, which is known or presumed to have occurred within 7 days, OR
3 Urine volume < 0.5 nL/kg/hour for six hours
Use of terms such as suspected, likely, concern for, or probable (associated with a specific diagnosis that is being evaluated, monitored, or treated as if it exists) are acceptable and can be coded in the inpatient setting, when documented at the
time of discharge.
Thank you,
Ramonita Brennan RN BSN
CDI Specialist
available via tiger text
Please use your independent medical judgment in providing your response.
*Source: Kidney Disease: Improving Global Outcomes (KDIGO) 2012
--- NOTE | 2024-06-25 14:30 | W.PN.HOSP.TC ---
Addendum entered and electronically signed by Angelo Jeffery MD 07/19/24 15:31:
Acute kidney injury, mild and secondary to dehydration
Original Note:
Today's Communication/Plan
-
Advance to low residue diet today. Monitor closely.
Assessment / Plan
Assessment / Plan
IMPRESSION:
Presentation with intractable nausea, emesis, abdominal cramps and diarrhea.
Suspect acute gastroenteritis.
Dehydration
Metabolic acidosis secondary to gastrointestinal losses.
Hypokalemia.
Hypocalcemia of acute illness
Recent UTI treated with Augmentin
Other conditions:
Asthma
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
Sjogren syndrome.
GERD.
Hiatal hernia.
Restless leg syndrome, status post spinal stimulator.
Anxiety/depression.
Right subclavian port, difficult IV access.
Left lower lobe nodule with benign endobronchial biopsy
PLAN:
Acute gastroenteritis secondary to norovirus
Afebrile and hemodynamically stable, nontoxic-appearing
Abdominal x-ray with mild gaseous distention. No evidence of significant bowel wall thickening
Norovirus PCR positive
Persistent ileus
CT scan of the abdomen with IV and oral contrast on 06/19 consistent with colonic dilatation, mild with sigmoid diameter at 6.2 cm.
Reports no flatus over the past 24 hours
Exam with improved abdominal distention.
Obstruction series with no radiographic evidence of bowel obstruction or pneumoperitoneum. Mild diffuse colonic distention suspicious for mild colonic ileus
Attempted rectal tube on 06/22, was not able to tolerate.
Status post Relistor on 06/22
Avoid narcotics, minimize hydromorphone
IV Tylenol for pain.
Doculax suppository every 8 hours
Follow-up KUB 06/24 stable
Clinically improving with less abdominal distention and nausea
Repeat Relistor on 06/24
Low residue diet on 06/25
Hold lubiprostone.
Hypocalcemia improved
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
Status post IVC filter
Continue Xarelto
Hiatal hernia/GERD
Continue PPI/famotidine.
Aspiration precautions with nausea and vomiting.
Sjogren's syndrome
Continue hydroxychloroquine
Restless leg syndrome status post spinal stimulator
Continue gabapentin
Anxiety/depression/insomnia continue venlafaxine. Clonazepam
Full code
DVT prophylaxis Xarelto
Anticipated Discharge: 24 - 48 hours
Subjective/Interval History
-
Date of Service: June 25, 2024
Objective Data
-
Vital Signs:
Vital Signs
Temp Pulse Resp BP Pulse Ox
97.9 F 66 18 124/59 99
06/25/24 07:30 06/25/24 07:30 06/25/24 07:30 06/25/24 07:30 06/25/24 08:00
I&O
06/24/24 06/25/24 06/26/24
06:59 06:59 06:59
Intake Total 1959
Balance 1959
Physical Exam
-
General: Well Developed, Well Nourished and No Apparent Distress
HEENT: Normocephalic, Atraumatic, Moist Mucous Membranes and Other (chest port noted )
Respiratory: Clear to Auscultation (significantly clearer today) and Rhonchi (essentially resolved)
Cardiac: Regular Rhythm and S1/S2
GI: Soft, Nontender, Nondistended and Normal Bowel Sounds
Musculoskeletal: No Edema
Skin: Warm
Neuro: Awake and AO x 3
Psych: Calm
[2024-06-25 15:30] VITALS: BP 114/62
--- NOTE | 2024-06-25 16:41 | W.PN.GI.CBS2 ---
Today's Communication / Plan
-
Told her to try smaller portion for dinner tonight
Monitor BMs and flatus
If doing worse tomorrow repeat OBS series and consider another dose Relistor. She rec'd 12mg SQ yesterday
Encouraged OOB/ambulation and she is walking the floor currently
Avoid narcotics
Colonic ileus likely due to post norovirus infection with hx SBO in the past due to adhesions
Assessment / Plan
-
#Norovirus Gastroenteritis c/b
#Colonic Ileus (Acute Colon Pseudo-obstruction)
#Hx of Chronic Constipation
#Hx of Prior SBO (s/p prior SB resections )
#Hx of Factor V Leiden c/b #DVT/PE (on Xarelto)
Ms. Morataya is a 68 y.o female with past medical history of GERD, IBS-C, hx of Sjogren's syndrome, RLS (s/p spinal-cord stimulator), small bowel obstruction (2/2 adhesions s/p SB resections x 2 in ), factor V Leiden deficiency c/b DVT/PE (on
xarelto) who initially presented on 06/16/24 with nausea/vomiting and non-bloody, watery diarrhea found to have acute gastroenteritis secondary Norovirus infection. An Abdominal X-ray 06/16 revealed mild gaseous distension of the transverse colon.
Course complicated by persistent distension and nausea/vomiting where a repeat CT Abd/pelvis revealed gaseous distension of the right colon with [id number] dilatation of the cecum measuring 7.8 cm and throughout the rest of the remain colon
consistent with a colonic ileus (ie acute colonic pseudo-obstruction) without any significantly dilated small bowel loops identified or other evidence of an obstructive process. Fortunately, her nausea/vomiting have much improved with return of
bowel function with passage of 5-6 episodes of looser stools yesterday evening and one small BM this AM with ongoing dulcolax suppositories. She has been tolerating CLD without difficulty without worsening distension and her abdominal exam is
reassuring. Of note, she was receiving Dilaudid earlier in her admission as well but is not on chronic opioids/narcotics. Clinically, appears her colonic ileus / acute colonic pseudo-obstruction appears to be improving with ongoing bowel function
likely secondary to prior resolving Norovirus infection.
X-ray Obstruction Series 06/22/24- Impression: (-) for bowel obstruction/pneumoperitoneum, still with persistent mild diffuse colonic distension consistent with mild colonic ileus, appears to be somewhat improved in regards to prior cecal dilatation
S/p methylnaltrexone on 06/22 and trial of rectal tube (however, unable to tolerate). Appears to be improving with less distension and passing flatus suggesting return of bowel function, however still without any significant bowel movement. Suspect
secondary to resolving previous Norovirus infection and component of opioid-induced constipation playing a role as well given her recent opioids this admission.
Repeat KUB 06/24/24 with mild distention of the left side of the transverse colon, similar to prior and air-fluid levels within the colon consistent with persistent mild colonic ileus. Upon review of imaging, previous cecal diameter appears to have
been improved
Subjective
Subjective
Date of Service: June 25, 2024
Was feeling better this am, but after lunch has had more abdominal distention and some abd pain. Had small BM this am and has been passing flatus
Objective
Data Reviewed
Laboratory Data:
Laboratory Results
06/24/24 05:15
06/24/24 05:15
Laboratory Results
Total Bilirubin 0.6 mg/dl (0.2-1.3) 06/24/24 05:15
AST 22 U/L (14-36) 06/24/24 05:15
ALT 19 U/L (0-35) 06/24/24 05:15
Alkaline Phosphatase 53 U/L (38-126) 06/24/24 05:15
Vital Signs and I&O:
Vital Signs
Temp Pulse Resp BP Pulse Ox
98.4 F 70 18 114/62 97
06/25/24 15:30 06/25/24 15:30 06/25/24 15:30 06/25/24 15:30 06/25/24 15:30
I&O
06/24/24 06/25/24 06/26/24
06:59 06:59 06:59
Intake Total 1959
Balance 1959
Physical Exam
Physical Exam
GI: Soft, Distended (mild distended) and Tender (mild tender)
[2024-06-25] MEDS: PROTONIX 40 MG PO (17:12)
[2024-06-25] MEDS: NEURONTIN 1200 MG PO (21:12)
[2024-06-25] MEDS: MELATONIN 10 MG PO (21:12)
[2024-06-25] MEDS: KLONOPIN 2 MG PO (21:17)
[2024-06-25 23:49] VITALS: BP 100/48
[2024-06-26 07:30] VITALS: BP 131/61
[2024-06-26] MEDS: MYRBETRIQ EXTENDED RELEASE 50 MG PO (08:38)
[2024-06-26] MEDS: PLAQUENIL 200 MG PO (08:38)
[2024-06-26] MEDS: RESTASIS 0.05% OPHTHALMIC EMULSION 1 DROPS BOTH EYES ×2 (08:38→19:35)
[2024-06-26] MEDS: HIPREX 1 GRAM PO (08:38)
[2024-06-26] MEDS: EFFEXOR XR 150 MG PO (08:38)
[2024-06-26] MEDS: XARELTO 10 MG PO (08:39)
[2024-06-26] MEDS: PEPCID 20 MG PO (08:39)
[2024-06-26] MEDS: NEURONTIN 600 MG PO (08:39)
--- NOTE | 2024-06-26 10:06 | W.PN.GI.CBS2 ---
Today's Communication / Plan
-
Please see assessment and plan for details.
Assessment / Plan
-
1. Colonic ileus: Likely status post norovirus, now clinically much improved with improved exam, tolerating diet, large flatus and bowel movements. Hold on further GI workup for now. We discussed continued a low residue diet for the next few
days. Is okay to DC from GI standpoint. Will sign off for now, please call back with any further questions.
Subjective
Subjective
Date of Service: June 26, 2024
Patient feeling well, had large bowel movements and flatus, feels much less distended, no vomiting, tolerating diet without difficulty.
Objective
Data Reviewed
Laboratory Data:
Laboratory Results
06/24/24 05:15
06/24/24 05:15
Laboratory Results
Total Bilirubin 0.6 mg/dl (0.2-1.3) 06/24/24 05:15
AST 22 U/L (14-36) 06/24/24 05:15
ALT 19 U/L (0-35) 06/24/24 05:15
Alkaline Phosphatase 53 U/L (38-126) 06/24/24 05:15
Vital Signs and I&O:
Vital Signs
Temp Pulse Resp BP Pulse Ox
98.4 F 70 18 131/61 99
06/26/24 07:30 06/26/24 07:30 06/26/24 07:30 06/26/24 07:30 06/26/24 07:30
I&O
06/25/24 06/26/24 06/27/24
06:59 06:59 06:59
Intake Total 2220 / 2220 1080 / 1080
Balance 2220 / 2220 1080 / 1080
Physical Exam
Physical Exam
General: NAD
Abdomen: normal bowel sounds, minimally distended though soft, no tenderness, no masses or bruits, no ascites
--- NOTE | 2024-06-26 12:21 | W.PN.HOSP.TC ---
Today's Communication/Plan
-
see bold
Assessment / Plan
Assessment / Plan
Gen: NAD, AAOx3.
Eyes: EOMI, PERRLA, no scleral icterus.
Neck: supple.
CV: RRR, +S1/S2, no m/r/g.
Resp: CTAB, no rales, wheezes, or rhonchi.
Abd: +BS, soft, NT, ND
Skin: No rashes.
Neuro: CN 2-12 intact, non-focal.
Psych: Normal mood and affect.
IMPRESSION:
Presentation with intractable nausea, emesis, abdominal cramps and diarrhea.
Suspect acute gastroenteritis.
Dehydration
Metabolic acidosis secondary to gastrointestinal losses.
Hypokalemia.
Hypocalcemia of acute illness
Recent UTI treated with Augmentin
Other conditions:
Asthma
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
Sjogren syndrome.
GERD.
Hiatal hernia.
Restless leg syndrome, status post spinal stimulator.
Anxiety/depression.
Right subclavian port, difficult IV access.
Left lower lobe nodule with benign endobronchial biopsy
PLAN:
Acute gastroenteritis secondary to norovirus
Afebrile and hemodynamically stable, nontoxic-appearing
Abdominal x-ray with mild gaseous distention. No evidence of significant bowel wall thickening
Norovirus PCR positive
Persistent ileus
CT scan of the abdomen with IV and oral contrast on 06/19 consistent with colonic dilatation, mild with sigmoid diameter at 6.2 cm.
Reports no flatus over the past 24 hours
Exam with improved abdominal distention.
Obstruction series with no radiographic evidence of bowel obstruction or pneumoperitoneum. Mild diffuse colonic distention suspicious for mild colonic ileus
Attempted rectal tube on 06/22, was not able to tolerate.
Status post Relistor on 06/22
Avoid narcotics, minimize hydromorphone
IV Tylenol for pain.
Doculax suppository every 8 hours
Follow-up KUB 06/24 stable
Clinically improving with less abdominal distention and nausea
Repeat Relistor on 06/24
Low residue diet on 06/25
Hold lubiprostone.
Hypocalcemia improved
Factor V Leiden mutation with history of DVT/PE.
Status post IVC filter
Continue Xarelto
Hiatal hernia/GERD
Continue PPI/famotidine.
Aspiration precautions with nausea and vomiting.
Sjogren's syndrome
Continue hydroxychloroquine
Restless leg syndrome status post spinal stimulator
Continue gabapentin
Anxiety/depression/insomnia continue venlafaxine. Clonazepam
Full code
DVT prophylaxis Xarelto
06/26/24 update:
-Abd Xray 06/24/24: Mild distention of the left side of the transverse colon, similar to prior examination. Residual contrast within the colon with air-fluid levels, findings suggesting a degree of bowel stasis. No evidence for free intraperitoneal
air.
-Currently hemodynamically stable
-Check BMP/CBC
-monitor overnight, likely d/c tomorrow.
Anticipated Discharge: Within 24 hours
Subjective/Interval History
-
Date of Service: June 26, 2024
Patient reports some diarrhea yesterday but none today. No abdominal pain. Tolerating diet.
Objective Data
-
Vital Signs:
Vital Signs
Temp Pulse Resp BP Pulse Ox
98.4 F 70 18 131/61 99
06/26/24 07:30 06/26/24 07:30 06/26/24 07:30 06/26/24 07:30 06/26/24 07:30
I&O
06/25/24 06/26/24 06/27/24
06:59 06:59 06:59
Intake Total 2220 / 2220 1080 / 1080
Balance 2220 / 0 1080 / 1080
[2024-06-26 14:36] LABS: Hematocrit 37.9 % (37.0-47.0); Hemoglobin 12.6 g/dL (12.0-16.0); Mean Corp Hgb Conc. 33.2 g/dL (33.0-37.0); Mean Corpuscular Hgb 31.4 pg (27.0-31.0); Mean Corpuscular Volume 94.5 fL (81.0-99.0); Mean Platelet Volume 9.3 fL (7.4-10.4); Platelet Count 319 10^3/uL (130-400); Red Blood Cell Count 4.01 10^6/uL (4.20-5.40); Red Cell Dist. Width 13.2 % (11.5-14.5); White Blood Cell Count 6.6 10^3/uL (4.8-10.8)
[2024-06-26 15:07] VITALS: BP 123/65
[2024-06-26 15:25] LABS: Blood Urea Nitrogen 15 mg/dl (7-17); Calcium 8.8 mg/dl (8.4-10.2); Carbon Dioxide 25 mmol/L (22-30); Chloride 103 mmol/L (98-107); Estimated Creatinine Clearance 42 ml/min; Glucose 113 mg/dl (70-99); Potassium 4.3 mmol/L (3.5-5.1); Sodium 137 mmol/L (135-145); eGFR 54.06
[2024-06-26] MEDS: PROTONIX 40 MG PO (17:15)
[2024-06-26] MEDS: MELATONIN 10 MG PO (21:05)
[2024-06-26] MEDS: NEURONTIN 1200 MG PO (21:06)
[2024-06-26] MEDS: KLONOPIN 2 MG PO (21:06)
[2024-06-26 23:55] VITALS: BP 128/62
[2024-06-27] MEDS: TYLENOL 650 MG PO (00:22)
[2024-06-27 06:00] VITALS: BMI 25.8
[2024-06-27 08:03] VITALS: BP 119/61
[2024-06-27 08:25] LABS: Hematocrit 38.7 % (37.0-47.0); Hemoglobin 12.5 g/dL (12.0-16.0); Mean Corp Hgb Conc. 32.3 g/dL (33.0-37.0); Mean Corpuscular Hgb 30.3 pg (27.0-31.0); Mean Corpuscular Volume 93.9 fL (81.0-99.0); Mean Platelet Volume 9.6 fL (7.4-10.4); Platelet Count 334 10^3/uL (130-400); Red Blood Cell Count 4.12 10^6/uL (4.20-5.40); Red Cell Dist. Width 13.4 % (11.5-14.5); White Blood Cell Count 7.6 10^3/uL (4.8-10.8)
[2024-06-27] MEDS: EFFEXOR XR 150 MG PO (08:25)
[2024-06-27] MEDS: PEPCID 20 MG PO (08:25)
[2024-06-27] MEDS: MYRBETRIQ EXTENDED RELEASE 50 MG PO (08:25)
[2024-06-27] MEDS: HIPREX 1 GRAM PO (08:25)
[2024-06-27] MEDS: RESTASIS 0.05% OPHTHALMIC EMULSION 1 DROPS BOTH EYES (08:25)
[2024-06-27] MEDS: NEURONTIN 600 MG PO (08:26)
[2024-06-27] MEDS: PLAQUENIL 200 MG PO (08:26)
[2024-06-27] MEDS: XARELTO 10 MG PO (08:26)
[2024-06-27 09:13] LABS: Blood Urea Nitrogen 21 mg/dl (7-17); Calcium 9.1 mg/dl (8.4-10.2); Carbon Dioxide 25 mmol/L (22-30); Chloride 103 mmol/L (98-107); Estimated Creatinine Clearance 41 ml/min; Glucose 130 mg/dl (70-99); Potassium 4.4 mmol/L (3.5-5.1); Sodium 137 mmol/L (135-145); eGFR > 60.00
--- NOTE | 2024-06-27 12:10 | W.PN.HOSP.TC ---
Today's Communication/Plan
-
d/c
Assessment / Plan
Assessment / Plan
Gen: NAD, AAOx3.
Eyes: EOMI, PERRLA, no scleral icterus.
Neck: supple.
CV: remains RRR, +S1/S2, no m/r/g.
Resp: remains CTAB, no rales, wheezes, or rhonchi.
Abd: +BS, soft, NT, ND
Skin: No rashes.
Neuro: remains CN 2-12 intact, non-focal.
Psych: Normal mood and affect.
IMPRESSION:
Presentation with intractable nausea, emesis, abdominal cramps and diarrhea.
Suspect acute gastroenteritis.
Dehydration
Metabolic acidosis secondary to gastrointestinal losses.
Hypokalemia.
Hypocalcemia of acute illness
Recent UTI treated with Augmentin
Other conditions:
Asthma
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
Sjogren syndrome.
GERD.
Hiatal hernia.
Restless leg syndrome, status post spinal stimulator.
Anxiety/depression.
Right subclavian port, difficult IV access.
Left lower lobe nodule with benign endobronchial biopsy
PLAN:
Acute gastroenteritis secondary to norovirus
Afebrile and hemodynamically stable, nontoxic-appearing
Abdominal x-ray with mild gaseous distention. No evidence of significant bowel wall thickening
Norovirus PCR positive
Persistent ileus
CT scan of the abdomen with IV and oral contrast on 06/19 consistent with colonic dilatation, mild with sigmoid diameter at 6.2 cm.
Reports no flatus over the past 24 hours
Exam with improved abdominal distention.
Obstruction series with no radiographic evidence of bowel obstruction or pneumoperitoneum. Mild diffuse colonic distention suspicious for mild colonic ileus
Attempted rectal tube on 06/22, was not able to tolerate.
Status post Relistor on 06/22
Avoid narcotics, minimize hydromorphone
IV Tylenol for pain.
Doculax suppository every 8 hours
Follow-up KUB 06/24 stable
Clinically improving with less abdominal distention and nausea
Repeat Relistor on 06/24
Low residue diet on 06/25
Hold lubiprostone.
Hypocalcemia improved
Factor V Leiden mutation with history of DVT/PE.
Status post IVC filter
Continue Xarelto
Hiatal hernia/GERD
Continue PPI/famotidine.
Aspiration precautions with nausea and vomiting.
Sjogren's syndrome
Continue hydroxychloroquine
Restless leg syndrome status post spinal stimulator
Continue gabapentin
Anxiety/depression/insomnia continue venlafaxine. Clonazepam
Full code
DVT prophylaxis Xarelto
06/26/24 update:
-Abd Xray 06/24/24: Mild distention of the left side of the transverse colon, similar to prior examination. Residual contrast within the colon with air-fluid levels, findings suggesting a degree of bowel stasis. No evidence for free intraperitoneal
air.
-Currently hemodynamically stable
-Check BMP/CBC
-monitor overnight, likely d/c tomorrow.
06/27/24 update:
-Continues to tolerate diet without complaints. No concerning physical exam findings. Medically stable for discharge.
Total time spent on d/c = 31 min. This included today's physical exam, progress note, review of laboratory and diagnostic data, preparation of discharge documents and prescriptions, and discussions about the pt's hospital course and discharge plan
with the patient and other center medical and lab director involved in the patient's care.
Anticipated Discharge: Today
Subjective/Interval History
-
Date of Service: June 27, 2024
No new complaints.
Objective Data
-
Labs:
Laboratory Results
06/27/24
08:08
WBC 7.6
Hgb 12.5
Hct 38.7
Plt Count 334
Sodium 137
Potassium 4.4
Chloride 103
Carbon Dioxide 25
BUN 21 H
Creatinine 1.0
Glucose 130 H
Calcium 9.1
Vital Signs:
Vital Signs
Temp Pulse Resp BP Pulse Ox
98.2 F 71 18 119/61 97
06/27/24 08:03 06/27/24 08:03 06/27/24 08:03 06/27/24 08:03 06/27/24 08:03
I&O
06/26/24 06/27/24 06/28/24
06:59 06:59 06:59
Intake Total 1080 / 1080 240 / 240
Balance 1080 / 1080 240 / 240
--- NOTE | 2024-06-27 13:19 | CM ---
CM reviewed chart, patient seen bedside, patient for discharge today. Patient grateful for discharge, reports no needs. Patient confirms she has transportation home. IMM reviewed verbally, agreeable to discharge, placed in chart, patient provided
with copy. CM will continue to follow for all discharge planning needs.
Plan; home no needs.
--- NOTE | 2024-06-27 13:22 | W.DCSUMMARY ---
Discharge Summary
Discharge Data
Date of Admission: 06/16/24
Date of Discharge: 06/27/24
-
Pending Results: No
Hospital Course
Primary diagnoses:
Acute colonic ileus due to acute gastroenteritis due to acute norovirus infection
Dehydration
Metabolic acidosis secondary to gastrointestinal losses
Secondary diagnoses:
Hypokalemia
Hypocalcemia
Factor V Leiden mutation with prior history of DVT/PE status post IVC filter on chronic anticoagulation with Xarelto
Sjogren syndrome
Gastroesophageal flux disease
Hiatal hernia
Restless leg syndrome, s/p spinal stimulator
Anxiety
Depression
Right subclavian port, difficult IV access
Left lower lobe nodule with benign endobronchial biopsy
Consults:
Gastroenterology
Imaging:
Abd Xray 06/16/24: Mild gaseous distention of the transverse colon. No evidence for significant bowel wall thickening radiographically.
CT A/P 06/19/24: Gaseous distention of the colon which has increased since abdominal radiograph of June 16, 2024. As described, findings are most suggestive of adynamic ileus with preferential involvement of the colon. No significant wall
thickening is identified involving the bowel. No evidence for small bowel obstruction. No evidence for free intraperitoneal air. No evidence for stercoral colitis. Minimal amount of pleural fluid in the posterior and inferior right hemithorax.
Parenchymal opacity within the posterior and inferior aspect of both lower lungs, which is likely atelectasis. Linear densities within the left lower lung, which is likely scarring. Small to moderate-sized central hiatal hernia, increased from
previous examination.
Abd Xray 06/22/24:
1. No radiographic evidence for bowel obstruction or pneumoperitoneum.
2. Mild diffuse colonic distention suspicious for a mild colonic ileus.
3. Moderate-sized hiatal hernia.
4. Bilateral subclavian central venous catheters, IVC filter, and spinal stimulator in place.
5. Mild subsegmental atelectasis and scarring in the left lower lung.
Abd Xray 06/24/24: Mild distention of the left side of the transverse colon, similar to prior examination. Residual contrast within the colon with air-fluid levels, findings suggesting a degree of bowel stasis. No evidence for free intraperitoneal
air.
Hospital course: 68-year-old female who initially presented on June 16, 2024 with chief complaints of nausea, vomiting, abdominal cramps, diarrhea as outlined in the H&P done on admission. Patient's initial abdominal x-ray was fairly
unremarkable. She was hemodynamically stable. She was placed on a clear liquid diet and supported with IV fluids. Stool studies were notable for norovirus positivity, negative for C. difficile toxin, Salmonella, Shigella, Campylobacter, Shiga
toxin. The patient developed abdominal distention. She was found to have adynamic ileus with preferential involvement of the colon. She was seen in consultation by gastroenterology. Rectal tube was placed and the patient was given Relistor. She
was made NPO. Her symptoms improved and her diet was once again advanced. She was tolerating solid food at the time of discharge and discharged in medically stable condition.
Discharge Plan
-
Patient Disposition: Home (Routine Discharge)
Discharge Diagnosis/Procedures: Acute colonic ileus due to acute norovirus infection
Condition: Good
Diet: Low Residue
Activity: No restrictions
Driving Restrictions: As prior to admission
Bathing Restrictions: None
Referrals:
Wilma Shirley DO [Family Provider] - in less than 1 week
Prescriptions:
Continued
melatonin 5 MG tablet
10 mg PO HS
gabapentin 600 MG tablet
600 mg PO DAILY
lubiprostone 24 MCG capsule
24 mcg PO BID 0RF
Ca-D3-mag sk-wgzn-wbq-lexie-bor [Calcium 600-D3 Plus (mag-zinc)] 1 EACH tablet
1 ea PO BID
Prolia 60 mg/mL Syringe
60 mg SC [id number] Qty: 0
gabapentin 600 mg Tablet
1,200 mg PO HS
venlafaxine 150 mg Capsule,Extended Release 24hr
150 mg PO DAILY
cevimeline 30 mg Capsule
1 cap PO TID
hydroxychloroquine 200 mg Tablet
200 mg PO DAILY
cyclosporine [Restasis] 0.05 % Dropperette
1 drp BOTH EYES BID
Dupixent Syringe 300 mg/2 mL Syringe
300 mg SC Q2W
bisacodyl 5 mg Tablet
10 mg PO HS
methenamine hippurate 1 GRAM tablet
1 g PO DAILY
famotidine 40 mg Tablet
40 mg PO BID
Xarelto 10 mg Tablet
10 mg PO DAILY
clonazepam 2 mg Tablet
2 mg PO HS
omega-3 fatty acids Capsule
1,000 mg PO BID
dexlansoprazole 60 mg Capsule,Biphase Delayed Releas
60 mg PO QPM
mirabegron [Myrbetriq] 50 mg Tablet Extended Release 24 Hr
50 mg PO DAILY
Uqora Defend
1 cap PO BID
levalbuterol tartrate [Xopenex HFA] 45 mcg/actuation Hfa Aerosol Inhaler
2 inh INHALATION Q6H PRN (Reason: asthma)
Discharge Orders:
Discharge Patient (As Directed); Ordered 06/27/24
Ordered By: Everett Morrissey
Discharge Date and Time
Print Language: TRINIDADIAN
[2024-06-27 13:24] VITALS: BP 126/84
== END 2024-06-27 14:10 | disposition home or self-care (01) | DRG 392 ==
LOC: 4 WEST ACU 11:11
PROVIDERS: Emergency Medicine; ADMITTING PHYSICIAN Internal Medicine; ATTENDING PHYSICIAN Internal Medicine; CONSULT PHYSICIAN Student in an Organized Health Care Education/Training Program; EMERGENCY PHYSICIAN Student in an Organized Health Care Education/Training Program; FAMILY PHYSICIAN Family Medicine
DX: A08.11 Acute gastroenteropathy due to Norwalk agent (principal); K56.0 Paralytic ileus; E87.20 Acidosis, unspecified; D68.51 Activated protein C resistance; N17.9 Acute kidney failure, unspecified; E86.0 Dehydration; E87.6 Hypokalemia; E83.51 Hypocalcemia; M35.00 Sjogren syndrome, unspecified; K21.9 Gastro-esophageal reflux disease without esophagitis; G25.81 Restless legs syndrome; F32.A Depression, unspecified; F41.9 Anxiety disorder, unspecified; G47.00 Insomnia, unspecified; D64.9 Anemia, unspecified; I49.3 Ventricular premature depolarization; K58.1 Irritable bowel syndrome with constipation; K44.9 Diaphragmatic hernia without obstruction or gangrene; J45.909 Unspecified asthma, uncomplicated; M81.0 Age-related osteoporosis without current pathological fracture; Z95.828 Presence of other vascular implants and grafts; Z87.440 Personal history of urinary (tract) infections; Z79.01 Long term (current) use of anticoagulants; Z86.711 Personal history of pulmonary embolism; Z86.718 Personal history of other venous thrombosis and embolism
CPT/HCPCS: 74018; 74019; 74022; 74177; 80048; 80053; 81003; 81015; 82330; 85025; 85027; 87045; 87046; 87077; 87324; 87427; 87449; 87798; 89055; 94640; J2997; J3480; Q9967

== ENCOUNTER 2024-07-14 06:25 | Day surgery (SDC) | payer MEDICARE, SELFPAY ==
[2024-07-14 08:33] VITALS: BP 108/69; BMI 25.7
[2024-07-14 10:50] VITALS: BP 96/54
[2024-07-14 11:00] VITALS: BP 100/51
[2024-07-14 11:15] VITALS: BP 126/67
[2024-07-14 11:30] VITALS: BP 125/70
== END 2024-07-14 11:55 | disposition home or self-care (01) ==
LOC: SDS 06:25
PROVIDERS: ATTENDING PHYSICIAN Internal Medicine Gastroenterology
DX: K63.89 Other specified diseases of intestine (principal); K64.0 First degree hemorrhoids; Z86.0101 Personal history of adenomatous and serrated colon polyps; Z79.01 Long term (current) use of anticoagulants; Z98.890 Other specified postprocedural states
CPT/HCPCS: 45380; 45381; 88305

== ENCOUNTER → 2024-07-20 08:34 | Outpatient (REF) | payer MEDICARE, SELFPAY | LOC: WDC 08:34 | PROVIDERS: ATTENDING PHYSICIAN Family Medicine | DX: Z12.31 Encounter for screening mammogram for malignant neoplasm of breast (principal) | CPT/HCPCS: 77063; 77067 ==

== ENCOUNTER 2024-08-05 01:47 | Emergency (ER) | payer MEDICARE, SELFPAY ==
[2024-08-05] VITALS (7 sets, daily range): BP systolic 114–161; BP diastolic 63–96; BMI 28.9
[2024-08-05 03:03] LABS: % Basophils 0.5 % (0-2); % Eosinophils 2.1 % (0-6); % Immature Granulocytes 0.5 % (0-0.5); % Lymphocytes 26.5 % (20.5-51.1); % Neutrophils 62.4 % (42.2-75.2); Absolute Eosinophils 0.1 10^3/uL (0-0.7); Absolute Lymphocytes 1.8 10^3/uL (1.2-3.4); Absolute Monocytes 0.5 10^3/uL (0.1-0.6); Absolute Neutrophils 4.2 10^3/uL (1.4-6.5); Hematocrit 36.7 % (37.0-47.0); Hemoglobin 12.1 g/dL (12.0-16.0); Mean Corpuscular Volume 94.1 fL (81.0-99.0); Nucleated Red Blood Cells % 0 %; Platelet Count 251 10^3/uL (130-400); Red Cell Dist. Width 13.9 % (11.5-14.5); White Blood Cell Count 6.7 10^3/uL (4.8-10.8)
[2024-08-05 03:24] LABS: ALT (SGPT) 28 U/L (0-35); AST (SGOT) 28 U/L (14-36); Albumin 3.9 g/dl (3.5-5.0); Alkaline Phosphatase 86 U/L (38-126); Blood Urea Nitrogen 12 mg/dl (7-17); Calcium 8.3 mg/dl (8.4-10.2); Carbon Dioxide 24 mmol/L (22-30); Chloride 105 mmol/L (98-107); Glucose 104 mg/dl (70-99); Potassium 4.1 mmol/L (3.5-5.1); Sodium 141 mmol/L (135-145); Total Bilirubin 0.6 mg/dl (0.2-1.3); Total Protein 6.4 g/dl (6.3-8.2)
[2024-08-05 03:34] LABS: eGFR > 60.00
[2024-08-05 03:37] LABS: Troponin I < 0.012 ng/ml
--- NOTE | 2024-08-05 06:37 | ED.GENMED ---
History of Present Illness
General
Chief Complaint: Abdominal Symptoms
Source: patient and records
Exam Limitations: none
Time Seen by Provider: 08/05/24 06:04
Nursing documentation reviewed up to this point in time: agreed with
History of Present Illness
History of Present Illness:
69-year-old female with a past medical history as noted presents to the emergency department for evaluation of abdominal pain associated with nausea and vomiting. Patient reports that she has a history of a hiatal hernia and not uncommonly gets
some nausea/reflux. She reports that last night while she was laying in bed she started to have significant nausea and was having vomiting/spitting up constantly. She says that symptoms became quite severe and she started to have some upper
abdominal discomfort and ultimately came to the emergency room. She says she has chronic IBS-C and therefore is frequently constipated but bowel movements have not been unusual recently. She denies any recent fever or chills. She does report that
since she started vomiting last night she has had a cough and some wheezing�she cites a history of asthma and feels it may be acting up from vomiting/aspiration. She denies any other complaints. She does have prior surgical history of partial
bowel resection for bowel obstruction, hysterectomy, appendectomy, cholecystectomy.
Past History
Past History
ED Past Medical History: Arrthythmia (PVC's), Asthma, GERD, Other (Pulmonary embolism, DVT, factor V Leiden deficiency , Bowel obstructions, PNA, Hiatal hernia, GI bleeding, C. Diff, anemia) and Other (Sjogren's, osteoporosis, sleep apnea)
ED Past Surgical History: Appendectomy, Bowel resection (Multiple episodes of bowel obstruction), Cholecystectomy, Gynecological (Hysterectomy Total), Orthopedic (R shoulder surgery) and Other ([place] filter)
Social History
Tobacco: Non-smoker
Alcohol: Occasional
Drug: None
Personal:
Living: with family
Employment: Employed
Family History
Family History: Other (Diabetes, coronary disease)
Review of Systems
Review of Systems
All Other Systems: ROS reviewed and negative except as documented in HPI and ROS
Constitutional: Denies fever or chills
Respiratory: Denies cough or trouble breathing
Cardiac: Denies chest pain
ABD/GI: Reports abdominal pain, nausea, vomiting and constipated (Chronic); Denies diarrhea
: Denies dysuria or flank pain
Musculoskeletal: Denies neck pain or back pain
Neurological: Denies dizzy or headache
Phy Exam
Physical Exam
Physical Exam:
General: Awake, alert, oriented x3; no acute distress
Head: Normocephalic, atraumatic
Eyes: Conjunctiva normal, sclera anicteric
Throat: Airway intact, dry mucous membranes
Neck: Trachea midline, supple without meningismus
Lungs: Scattered wheezing and frequent cough; normal pulse ox, normal respiratory
Heart: Regular rate and rhythm, no murmurs, gallops, or rubs
Abd: Soft, mildly distended and tympanic, diffusely tender
Neuro: No gross deficits
Skin: no rash
Extremities: No edema in extremities, equal pulses in all extremities
Scores
Heart Failure Risk
Heart Failure Risk Score: Not Applicable
Heart Score for Chest Pain Patients
STEMI patient?: Not applicable
Withdrawal Assessment of Alcohol
Withdrawal Assessment Completed?: Not applicable
Course
Orders/Labs/Results
Orders:
Orders
08/05/24 02:08
Electrocardiogram (*1) Urgent
Reason for Study: Other
Other Reason for Exam: Respiratory Distress
EKG- Treatment ONCE
CR Chest - 2 Views Urgent
Comment:
Reason For Exam: respiratory distress
08/05/24 02:40
Complete Blood Count/With Diff Urgent
Comprehensive Metabolic Panel Urgent
Troponin I Urgent
08/05/24 06:35
CT Abd/pel W Iv And Oral Contr Urgent
Comment:
Reason For Exam: abd pain, N/V
Iohexol [Omnipaque] See Protocol PO NOW STA
08/05/24 06:36
0.9% Sodium Chloride 1000 ml [Nss] 1,000 ml IV BOLUS
Ipratropium/Albuterol Sulfate [Duoneb] 3 ml INH R NOW STA
Ondansetron Injectable [Zofran] 4 mg IV NOW STA
08/05/24 06:51
Heparin Pf [Heparin Lock Flush] 500 unit .ROUTE .[facility]
08/05/24 07:09
COVID-19 Antigen Urgent
Source: Nasal Swab
Influenza A+B Rapid Molecular Urgent
RODNEY Source: Nasal Swab
Specimen Description:
08/05/24 07:58
HYDROmorphone [Dilaudid] 0.5 mg IV NOW STA
Abnormal Lab Results
08/05/24
02:40
RBC 3.90 L 10^6/uL
(4.20-5.40)
Hct 36.7 L %
(37.0-47.0)
Glucose 104 H mg/dl
(70-99)
Calcium 8.3 L mg/dl
(8.4-10.2)
08/05/24 02:40
08/05/24 02:40
Vital Signs
Initial and Last Documented VS:
Initial Vital Signs
Temp Pulse Resp BP Pulse Ox
37.0 C 96 18 151/72 99
08/05/24 01:59 08/05/24 01:59 08/05/24 01:59 08/05/24 01:59 08/05/24 01:59
Last Documented Vital Signs
Temp Pulse Resp BP Pulse Ox
37.0 C 91 15 126/70 97
08/05/24 01:59 08/05/24 08:00 08/05/24 08:00 08/05/24 06:00 08/05/24 07:45
MDM/Problems Addressed
Differential Diagnosis Includes:
GERD/gastritis/esophagitis, small bowel obstruction, enteritis, influenza/COVID/viral syndrome, IBS
MDM/Problems Addressed:
69-year-old female presents with nausea and vomiting, abdominal discomfort started last night; has also started to have a bit of a cough. Vitals and exam as above. She had an IV placed in triage and labs sent off including a CBC and a CMP which
were unremarkable. She had an EKG and a troponin�EKG shows sinus rhythm, no STEMI; troponin negative. Will send for a CT of the abdomen pelvis. Provide fluids and antiemetic. Will provide DuoNeb treatment for cough�suspect she may have had minor
aspiration and some mild asthma symptoms as a result. She had a chest x-ray in triage which reviewed by me shows no acute pneumonia (although question some dilated loops of small bowel on visible parts of the abdomen). Will monitor closely
reassess after the above.
Patient coughing less after DuoNeb, clinical reassessment very well-appearing with normal vitals. Her CT abdomen pelvis shows constipation but no other acute intra-abdominal pathology. Low suspicion of constipation accounts for her symptoms
suspect more likely that this is either IBS related or gastritis/hiatal hernia related. She is already on a PPI, explained that we can trial some dicyclomine for her abdominal pains. Follow-up with her primary care physician. She feels
comfortable with this plan. Advised bland diet, plenty of fluids. All questions answered.
Chronic conditions affecting care:
Asthma, multiple bowel surgeries
Acute Exacerbation and/or Progression of Chronic Illness:
Acutely hypertensive
Acute Exacerbation and/or Progression of Chronic Illness: HTN
*Radiology
Radiology exam reviewed: preliminary read by ED provider and radiology read reviewed
*Pulse Oximetry
Patient hypoxic: no
*EKG
Interpreted by ED Provider?: Yes
Heart Rate: 92
Rate: normal
Rhythm: sinus
[place]: normal axis
Interval: normal interval
QRS Pattern: normal QRS
Ischemia: no ischemia
*Critical Care Note
Total Time (30-74mins, 75-104mins- exclusive of procedures): Not Applicable
Data Reviewed
Review of Other/Old Records Reveals: Labs and Records
Source: patient and records
ED Attending Note
-
Portions of this chart may have been created with voice recognition software.� Occasional wrong word or��sound alike� substitutions may have occurred due to the inherent limitations of voice recognition software.
Discharge Plan
Departure
Patient Disposition: Home (Routine Discharge)
Date of Disposition: 08/05/24
Time of Disposition: 10:37
Patient with high blood pressure during this ER visit?: Yes
Discharge Problem:
Abdominal pain, Nausea & vomiting
Instructions: Nausea and Vomiting, Adult (DC), Abdominal Pain
Prescriptions:
New
dicyclomine 10 mg capsule
10 mg PO BID Qty: 14 0RF
No Action
melatonin 5 MG tablet
10 mg PO HS
gabapentin 600 MG tablet
600 mg PO DAILY
lubiprostone 24 MCG capsule
24 mcg PO BID 0RF
Ca-D3-mag lo-igoi-btc-lexie-bor [Calcium 600-D3 Plus (mag-zinc)] 1 EACH tablet
1 ea PO BID
Prolia 60 mg/mL Syringe
60 mg SC [id number] Qty: 0
gabapentin 600 mg Tablet
1,200 mg PO HS
venlafaxine 150 mg Capsule,Extended Release 24hr
150 mg PO DAILY
cevimeline 30 mg Capsule
1 cap PO TID
hydroxychloroquine 200 mg Tablet
200 mg PO DAILY
cyclosporine [Restasis] 0.05 % Dropperette
1 drp BOTH EYES BID
Dupixent Syringe 300 mg/2 mL Syringe
300 mg SC Q2W
bisacodyl 5 mg Tablet
10 mg PO HS
methenamine hippurate 1 GRAM tablet
1 g PO DAILY
famotidine 40 mg Tablet
40 mg PO BID
Xarelto 10 mg Tablet
10 mg PO DAILY
clonazepam 2 mg Tablet
2 mg PO HS
omega-3 fatty acids Capsule
1,000 mg PO BID
dexlansoprazole 60 mg Capsule,Biphase Delayed Releas
60 mg PO QPM
mirabegron [Myrbetriq] 50 mg Tablet Extended Release 24 Hr
50 mg PO DAILY
Uqora Defend
1 cap PO BID
levalbuterol tartrate [Xopenex HFA] 45 mcg/actuation Hfa Aerosol Inhaler
2 inh INHALATION Q6H PRN (Reason: asthma)
Referrals:
Wilma Shirley DO [Family Provider] - Follow up in 5-7 days
Activity Restrictions/Additional Instructions:
Thank you for visiting the Emergency Department at [facility].
1. Please schedule a follow up appointment as directed. Call first thing tomorrow morning to make an appointment.
2. If indicated, please take your medications as instructed and indicated on discharge paperwork.
3. If any of your symptoms do not improve, or persist, or become more severe within 6-12 hours, please return to the emergency department for further care.
4. Please return to the emergency department if you develop a headache, neck pain/stiffness, fever greater than 100.4F, chest pain, shortness of breath, persistent nausea, vomiting, slurred speech, difficulty walking, numbness/tingling, weakness,
signs of infection or any other symptoms that are worrisome to you.
Please call [phone] if you have any questions.
Interventions
Interventions:
*Risk Screen - Suicide Last Done: 08/05/24 01:59
*General Assessment Last Done: 08/05/24 01:59
*Neglect/Abuse Screening Last Done: 08/05/24 01:59
ED- Fall Risk Assessment Last Done: 08/05/24 05:22
*ED COVID-19 Vaccine History Last Done: 08/05/24 01:59
AP-Kbkxbh-Baecrzejzw Assessment Last Done: 08/05/24 05:22
ED- Cardiac Assessment Last Done: 08/05/24 05:22
Discharge Date and Time
Print Language: PRYDEINIG
[2024-08-05] MEDS: OMNIPAQUE 50 ML PO (07:04)
[2024-08-05] MEDS: NSS 1000 IV (07:06)
[2024-08-05] MEDS: DUONEB 3 ML INH (07:06)
[2024-08-05] MEDS: ZOFRAN 4 MG IV (07:07)
[2024-08-05 07:41] LABS: COVID-19 Antigen Negative (Negative)
[2024-08-05] MEDS: DILAUDID 0.5 MG IV (08:02)
== END 2024-08-05 10:51 | disposition home or self-care (01) ==
LOC: EMR 01:47
PROVIDERS: Emergency Medicine; EMERGENCY PHYSICIAN Emergency Medicine; FAMILY PHYSICIAN Family Medicine
DX: R10.9 Unspecified abdominal pain (principal); R11.2 Nausea with vomiting, unspecified; I49.3 Ventricular premature depolarization; J45.909 Unspecified asthma, uncomplicated; K21.9 Gastro-esophageal reflux disease without esophagitis; D68.51 Activated protein C resistance; G47.30 Sleep apnea, unspecified; I10 Essential (primary) hypertension; K58.9 Irritable bowel syndrome, unspecified; M35.00 Sjogren syndrome, unspecified; M81.0 Age-related osteoporosis without current pathological fracture; Z82.49 Family history of ischemic heart disease and other diseases of the circulatory system; Z83.3 Family history of diabetes mellitus; Z86.711 Personal history of pulmonary embolism; Z86.718 Personal history of other venous thrombosis and embolism; Z90.49 Acquired absence of other specified parts of digestive tract; Z90.710 Acquired absence of both cervix and uterus
CPT/HCPCS: 99284; 94640; 96374; 96375; 71046; 74177; 80053; 84484; 85025; 87502; 87811; 93005; Q9967

== ENCOUNTER → 2024-08-31 09:04 | Outpatient (REF) | payer MEDICARE, SELFPAY ==
[2024-08-31 10:03] LABS: % Basophils 0.4 % (0-2); % Eosinophils 1.9 % (0-6); % Immature Granulocytes 0.4 % (0-0.5); % Lymphocytes 28.4 % (20.5-51.1); % Neutrophils 59.9 % (42.2-75.2); Absolute Eosinophils 0.1 10^3/uL (0-0.7); Absolute Lymphocytes 1.4 10^3/uL (1.2-3.4); Absolute Monocytes 0.4 10^3/uL (0.1-0.6); Absolute Neutrophils 2.9 10^3/uL (1.4-6.5); Hemoglobin 12.4 g/dL (12.0-16.0); Mean Corp Hgb Conc. 32.6 g/dL (33.0-37.0); Mean Corpuscular Hgb 30.8 pg (27.0-31.0); Mean Corpuscular Volume 94.5 fL (81.0-99.0); Mean Platelet Volume 10.1 fL (7.4-10.4); Nucleated Red Blood Cells % 0 %; Platelet Count 238 10^3/uL (130-400); Red Blood Cell Count 4.02 10^6/uL (4.20-5.40); Red Cell Dist. Width 14.2 % (11.5-14.5); White Blood Cell Count 4.8 10^3/uL (4.8-10.8)
[2024-08-31 10:12] LABS: Urine Albumin Negative (Neg - Trace); Urine Bilirubin Negative (Negative); Urine Character Clear (Clear); Urine Color Yellow; Urine Glucose Negative (Negative); Urine Ketone Negative (Negative); Urine Leukocyte Negative (Negative); Urine Nitrite Negative (Negative); Urine Occult Blood 2+ (Negative); Urine Urobilinogen Negative (Neg - 1+)
[2024-08-31 10:38] LABS: Protein/creatinine Ratio 0.3; Urine Protein 9 mg/dl
[2024-08-31 10:41] LABS: ALT (SGPT) 19 U/L (0-35); AST (SGOT) 20 U/L (14-36); Alkaline Phosphatase 71 U/L (38-126); Blood Urea Nitrogen 15 mg/dl (7-17); Calcium 9.4 mg/dl (8.4-10.2); Carbon Dioxide 26 mmol/L (22-30); Chloride 106 mmol/L (98-107); Glucose 81 mg/dl (70-99); Potassium 4.5 mmol/L (3.5-5.1); Sodium 138 mmol/L (135-145); Total Bilirubin 0.8 mg/dl (0.2-1.3); Total Protein 6.6 g/dl (6.3-8.2); eGFR > 60.00
[2024-08-31 11:27] LABS: Urine Amorphous Seen; Urine Squamous Cell 0-2 /LPF (Few); Urine Urothelial Cell 21-25 /LPF (FEW)
[2024-08-31 11:28] LABS: Urine White Cell 0-2 /HPF (0-5)
[2024-09-01 23:47] LABS: Complement C3 121 mg/dl (88-165)
== END ==
LOC: REG 09:04
PROVIDERS: ATTENDING PHYSICIAN Internal Medicine Rheumatology; FAMILY PHYSICIAN Family Medicine
DX: E55.9 Vitamin D deficiency, unspecified (principal); M15.0 Primary generalized (osteo)arthritis; M35.01 Sjogren syndrome with keratoconjunctivitis; M81.0 Age-related osteoporosis without current pathological fracture; R76.8 Other specified abnormal immunological findings in serum; Z11.59 Encounter for screening for other viral diseases; Z13.820 Encounter for screening for osteoporosis; Z79.899 Other long term (current) drug therapy
CPT/HCPCS: 36415; 80053; 81003; 81015; 82570; 84156; 85025; 86140; 86160

== ENCOUNTER → 2024-09-16 09:47 | Outpatient (REF) | payer MEDICARE, SELFPAY ==
[2024-09-16 09:53] LABS: % Basophils 0.3 % (0-2); % Eosinophils 0.9 % (0-6); % Immature Granulocytes 0.1 % (0-0.5); % Lymphocytes 28.1 % (20.5-51.1); % Monocytes 7.8 % (1.7-9.3); % Neutrophils 62.8 % (42.2-75.2); Absolute Eosinophils 0.1 10^3/uL (0-0.7); Absolute Lymphocytes 2.1 10^3/uL (1.2-3.4); Absolute Monocytes 0.6 10^3/uL (0.1-0.6); Absolute Neutrophils 4.8 10^3/uL (1.4-6.5); Hematocrit 40.8 % (37.0-47.0); Hemoglobin 13.4 g/dL (12.0-16.0); Mean Corp Hgb Conc. 32.8 g/dL (33.0-37.0); Mean Corpuscular Hgb 30.7 pg (27.0-31.0); Mean Corpuscular Volume 93.6 fL (81.0-99.0); Mean Platelet Volume 9.8 fL (7.4-10.4); Platelet Count 275 10^3/uL (130-400); Red Blood Cell Count 4.36 10^6/uL (4.20-5.40); Red Cell Dist. Width 13.4 % (11.5-14.5); White Blood Cell Count 7.6 10^3/uL (4.8-10.8)
[2024-09-16 10:39] LABS: Iron 73 ug/dl (37-170)
[2024-09-16 10:48] LABS: Percent Saturation 27 % (20-50); Total Iron Binding Capacity 261 ug/dl (265-497)
== END ==
LOC: OIDL 09:47
PROVIDERS: ATTENDING PHYSICIAN Internal Medicine Hematology & Oncology
DX: D68.52 Prothrombin gene mutation (principal); D50.9 Iron deficiency anemia, unspecified; Z88.8 Allergy status to other drugs, medicaments and biological substances; D47.2 Monoclonal gammopathy
CPT/HCPCS: 82728; 82784; 83521; 83540; 83550; 84155; 84165; 85025; 86334

== ENCOUNTER 2024-10-15 14:32 | Inpatient (IN) | payer MEDICARE, SELFPAY ==
[2024-09-28 10:39] LABS: % Basophils 0.2 % (0-2); % Eosinophils 1.6 % (0-6); % Immature Granulocytes 0.4 % (0-0.5); % Lymphocytes 13.5 % (20.5-51.1); % Monocytes 5.1 % (1.7-9.3); % Neutrophils 79.2 % (42.2-75.2); Absolute Eosinophils 0.1 10^3/uL (0-0.7); Absolute Lymphocytes 1.1 10^3/uL (1.2-3.4); Absolute Monocytes 0.4 10^3/uL (0.1-0.6); Absolute Neutrophils 6.6 10^3/uL (1.4-6.5); Hematocrit 40.2 % (37.0-47.0); Hemoglobin 13.2 g/dL (12.0-16.0); Mean Corp Hgb Conc. 32.8 g/dL (33.0-37.0); Mean Corpuscular Hgb 31.1 pg (27.0-31.0); Mean Corpuscular Volume 94.6 fL (81.0-99.0); Mean Platelet Volume 10.5 fL (7.4-10.4); Nucleated Red Blood Cells % 0 %; Platelet Count 212 10^3/uL (130-400); Red Blood Cell Count 4.25 10^6/uL (4.20-5.40); Red Cell Dist. Width 13.6 % (11.5-14.5); White Blood Cell Count 8.4 10^3/uL (4.8-10.8)
[2024-09-28 10:45] LABS: Blood Urea Nitrogen 13 mg/dl (7-17); Calcium 9.1 mg/dl (8.4-10.2); Carbon Dioxide 25 mmol/L (22-30); Chloride 107 mmol/L (98-107); Glucose 91 mg/dl (70-99); Potassium 4.2 mmol/L (3.5-5.1); Sodium 141 mmol/L (135-145); eGFR > 60.00
--- NOTE | 2024-10-07 14:20 | PTCARENOTE ---
Patients 09/[address] Dr[address] Haile- no [id number] interventions required
[2024-10-13] VITALS (17 sets, daily range): BP systolic 107–146; BP diastolic 53–77; BMI 26.5
[2024-10-13] MEDS: TYLENOL 1000 MG PO (08:26)
[2024-10-13] MEDS: NORMOSOL-R/PLASMALYTE-A 1000 IV ×2 (08:28→14:47)
--- NOTE | 2024-10-13 13:29 | W.IMMPOSTOP ---
Surgical Immed Post Op Note
-
Primary Surgeon: Priscilla
Assisting Surgeon: Ryan, PGY1
Pre-op Diagnosis: Paraesophageal hernia
Post-op Diagnosis: Paraesophageal hernia
Procedure Performed: Laparoscopic paraesophageal hernia repair with fundoplication and intra-operative EGD, laparoscopic lysis of adhesions
Anesthesia Type: General
Specimen / Cultures: None
Estimated Blood Loss: 3 cc
Complications: None
Operative Findings:
1. Dense abdominal adhesions containing omentum, SB, and colon, laparoscopic VANESSA for 60 min to clear room for ports
2. Type III PEH containing 20% of stomach
3. > 3 cm esophageal mobilization, bl vagi identified, no pleural violation
4. Crural closure with 0 silk (2 posterior and 1 anterior)
5. 2 cm loose, floppy Toupet fundoplication over 58 Fr Bougie
Plan: No changes from typical pathway
[2024-10-13] MEDS: OFIRMEV 100 IV ×2 (14:46→21:21)
[2024-10-13] MEDS: DILAUDID 0.25 MG IV ×2 (14:56→15:26)
[2024-10-13] MEDS: DILAUDID 0.5 MG IV ×2 (16:59→21:11)
[2024-10-13] MEDS: ATIVAN 0.5 MG IV (21:10)
[2024-10-13] MEDS: NSS (PRESERVATIVE FREE) 0.25 ML IV (21:11)
[2024-10-14] MEDS: NORMOSOL-R/PLASMALYTE-A 1000 IV ×3 (00:37→22:07)
[2024-10-14] MEDS: DILAUDID 0.5 MG IV ×7 (00:37→21:27)
[2024-10-14] MEDS: OFIRMEV 100 IV ×4 (02:13→21:21)
[2024-10-14 03:08] VITALS: BP 128/68
[2024-10-14 05:30] LABS: Hematocrit 36.3 % (37.0-47.0); Hemoglobin 11.7 g/dL (12.0-16.0); Mean Corp Hgb Conc. 32.2 g/dL (33.0-37.0); Mean Corpuscular Hgb 30.8 pg (27.0-31.0); Mean Corpuscular Volume 95.5 fL (81.0-99.0); Mean Platelet Volume 9.9 fL (7.4-10.4); Platelet Count 205 10^3/uL (130-400); Red Cell Dist. Width 13.8 % (11.5-14.5); White Blood Cell Count 12.5 10^3/uL (4.8-10.8)
[2024-10-14 05:58] LABS: Blood Urea Nitrogen 15 mg/dl (7-17); Calcium 6.9 mg/dl (8.4-10.2); Carbon Dioxide 27 mmol/L (22-30); Chloride 109 mmol/L (98-107); Estimated Creatinine Clearance 66 ml/min; Glucose 108 mg/dl (70-99); Potassium 5.1 mmol/L (3.5-5.1); Sodium 141 mmol/L (135-145); eGFR > 60.00
[2024-10-14 06:00] VITALS: BMI 26.7
[2024-10-14] MEDS: CALCIUM GLUCONATE 100 IV (06:29)
[2024-10-14 07:23] VITALS: BP 123/65
[2024-10-14] MEDS: ZOFRAN 4 MG IV ×2 (08:12→13:59)
--- NOTE | 2024-10-14 09:47 | CM ---
Reviewed the chart notes and spoke with the patient at the bedside. The patient resides with her spouse in a two story home with three steps to enter. The patient reports only DME is a stair glide. The patient reports no VN or SNF. The patient
confirmed her pharmacy of choice is [facility]. CM continues to be available to patient/family and is monitoring medical plan for needs at discharge.
Plan: Discharge to home when medically stable. No needs anticipated. Per patient, spouse will provide transportation home.
--- NOTE | 2024-10-14 10:04 | W.PN.GS2 ---
Today's Communication / Plan
-
`
Assessment / Plan
-
Assessment: 69-year-old female POD #1 status post laparoscopic PEH repair with toupee fundoplication, lysis of adhesions
AFVSS
Typical postoperative discomfort, otherwise doing well
Slight distention and tympany on exam -no flatus and mild nausea
Plan: Multimodal pain control options and will begin resuming gabapentin tomorrow.
Okay for sips of liquids with ice chips and p.o. meds
Renew IV fluids
Encourage OOB TC, ambulation and IS use
Lovenox for VTE prophylaxis initially postop with ambulation and SCDs-therapeutic anticoagulation to resume 72 hours postop
Subjective Data
-
Date of Service: October 14, 2024
Patient seen and examined
Reports mild postoperative nausea but no vomiting or dry heaves
Postoperative pain in the left upper quadrant/epigastric area with some typical postop chest tightness and left scapular discomfort. Pain controlled with Dilaudid
Objective Data
-
Intake and Output
10/13/24 10/14/24 10/15/24
06:59 06:59 06:59
Intake Total 150 / 150
Output Total 1075 / 1075
Balance -925 / -925
Intake:
IV fluids (Total) 150 / 150
Normosol-R/Plasmalyte-A 1,000 100 / 100
ml @ 100 mls/hr IV .Q10H OSBALDO Rx
#:[id number]
normosol 50 / 50
Output:
Urine, Bowser 225 / 225
Urine, Voided 850 / 850
Vital Signs
Temp Pulse Resp BP Pulse Ox
98.4 F 80 16 123/65 100
10/14/24 07:23 10/14/24 07:23 10/14/24 07:23 10/14/24 07:23 10/14/24 07:23
Lab Results
10/14/24 05:04
10/14/24 05:04
Calcium 6.9 mg/dl (8.4-10.2) L* 10/14/24 05:04
Physical Exam
-
NAD AAO x 3
ABD: Softly distended with some tympany. Mild tenderness on palpation. No rebound rigidity or guarding.
Laparoscopic surgical sites with glue dressings.
[2024-10-14 15:16] VITALS: BP 110/55
[2024-10-14] MEDS: LOVENOX 40 MG SC (17:33)
--- NOTE | 2024-10-14 18:44 | PTCARENOTE ---
prn pain medication and prn nausea medications needed throughout this shift per patient c/o abd pain and chest pain. pt walked the unit three times, is urinating in the bathroom and is wearing thigh high keturah stockings and SCDS. pt SQ port flushed
per protocol with heparin this shift by this RN.
[2024-10-14] MEDS: NEURONTIN 1200 MG PO (22:05)
[2024-10-14] MEDS: RESTASIS 0.05% OPHTHALMIC EMULSION 1 DROPS BOTH EYES (22:07)
[2024-10-15] MEDS: DILAUDID 0.5 MG IV ×8 (00:23→21:03)
[2024-10-15] MEDS: MYLICON 80 MG PO ×2 (01:24→11:00)
[2024-10-15] MEDS: OFIRMEV 100 IV ×2 (02:10→09:39)
[2024-10-15 03:15] VITALS: BP 140/70
[2024-10-15 07:21] VITALS: BP 116/73
[2024-10-15] MEDS: NORMOSOL-R/PLASMALYTE-A 1000 IV ×2 (08:24→17:08)
[2024-10-15] MEDS: RESTASIS 0.05% OPHTHALMIC EMULSION 1 DROPS BOTH EYES ×2 (08:25→21:03)
[2024-10-15] MEDS: NEURONTIN 600 MG PO (08:25)
[2024-10-15] MEDS: PLAQUENIL 200 MG PO (08:25)
[2024-10-15] MEDS: AMITIZA 24 MCG PO ×2 (08:25→21:03)
[2024-10-15] MEDS: EFFEXOR XR 150 MG PO (08:25)
--- NOTE | 2024-10-15 10:30 | W.PN.GS2 ---
Today's Communication / Plan
-
Encourage ambulation
Assessment / Plan
-
Assessment: 69-year-old female with a history of small bowel obstruction status post exploratory laparotomy now POD #2 status post laparoscopic PEH repair with toupet fundoplication, lysis of adhesions
AFVSS
Typical postoperative discomfort, otherwise doing well
Distention and tympany on exam -no flatus and mild nausea
Plan: Multimodal pain control options and will begin resuming gabapentin tomorrow.
Okay for sips of liquids with ice chips and p.o. meds
Renew IV fluids
Encourage OOB TC, ambulation and IS use
Lovenox for VTE prophylaxis initially postop with ambulation and SCDs-therapeutic anticoagulation to resume 72 hours postop
Time Spent
Total Time Spent with Patient (in minutes): 20
Subjective Data
-
Date of Service: October 15, 2024
Interval Events:
No acute events overnight. Slept well. Pain Controlled. Denies Nausea/Vomiting, -bowel function. Tolerating sips.
Objective Data
-
Intake and Output
10/14/24 10/15/24 10/16/24
06:59 06:59 06:59
Intake Total 150 / 150 2260 / 2260
Output Total 1075 / 1075 2750 / 2750
Balance -925 / -925 -490 / -490
Intake:
Oral fluids 960 / 960
IV fluids (Total) 150 / 150 1100 / 1100
Normosol-R/Plasmalyte-A 1,000 100 / 100
ml @ 100 mls/hr IV .Q10H OSBALDO Rx
#:[id number]
normosol 50 / 50
IV piggybacks 200 / 200
Output:
Urine, Ortiz 225 / 225
Urine, Voided 850 / 850 2750 / 2750
Other:
Number of approximated MODERATE 2
amounts of urine
Vital Signs
Temp Pulse Resp BP Pulse Ox
98.2 F 88 16 116/73 97
10/15/24 07:21 10/15/24 07:21 10/15/24 07:21 10/15/24 07:21 10/15/24 08:31
Lab Results
10/14/24 05:04
10/14/24 05:04
Calcium 6.9 mg/dl (8.4-10.2) L* 10/14/24 05:04
Physical Exam
-
GENERAL/NEURO: Awake, Alert, no distress
CHEST: Unlabored breathing on RA
ABDOMEN: Soft, appropriately tender, distended, incisions clean dry and intact.
Patient has a ortiz catheter: No
Patient has a central line: No
--- NOTE | 2024-10-15 11:17 | CM ---
Cm reviewed medical records. Plan for discharge to home with no needs noted. CM will continue to follow as needed.
PLAN: home, no needs.
[2024-10-15 15:20] VITALS: BP 119/60
[2024-10-15] MEDS: LOVENOX 40 MG SC (17:09)
[2024-10-15 23:19] VITALS: BP 124/55
[2024-10-15] MEDS: NEURONTIN 1200 MG PO (23:59)
[2024-10-16] MEDS: ZOFRAN 4 MG IV (00:41)
[2024-10-16] MEDS: DILAUDID 0.5 MG IV ×6 (00:43→20:23)
[2024-10-16 05:16] LABS: Hematocrit 33.9 % (37.0-47.0); Mean Corp Hgb Conc. 32.4 g/dL (33.0-37.0); Mean Corpuscular Hgb 30.5 pg (27.0-31.0); Mean Corpuscular Volume 93.9 fL (81.0-99.0); Mean Platelet Volume 9.9 fL (7.4-10.4); Platelet Count 185 10^3/uL (130-400); Red Blood Cell Count 3.61 10^6/uL (4.20-5.40); Red Cell Dist. Width 13.3 % (11.5-14.5); White Blood Cell Count 7.3 10^3/uL (4.8-10.8)
[2024-10-16 05:42] LABS: Blood Urea Nitrogen 10 mg/dl (7-17); Calcium 6.7 mg/dl (8.4-10.2); Carbon Dioxide 22 mmol/L (22-30); Chloride 111 mmol/L (98-107); Estimated Creatinine Clearance 77 ml/min; Glucose 78 mg/dl (70-99); Potassium 4.6 mmol/L (3.5-5.1); Sodium 138 mmol/L (135-145); eGFR > 60.00
[2024-10-16] MEDS: CALCIUM GLUCONATE 100 IV (06:09)
[2024-10-16] MEDS: NORMOSOL-R/PLASMALYTE-A 1000 IV (06:20)
[2024-10-16 07:35] VITALS: BP 142/77
[2024-10-16] MEDS: AMITIZA 24 MCG PO ×2 (07:57→20:22)
[2024-10-16] MEDS: RESTASIS 0.05% OPHTHALMIC EMULSION 1 DROPS BOTH EYES ×2 (07:57→20:22)
[2024-10-16] MEDS: PLAQUENIL 200 MG PO (07:57)
[2024-10-16] MEDS: EFFEXOR XR 150 MG PO (07:57)
[2024-10-16] MEDS: TUMS CHEWABLE TABLET 400 MG PO ×2 (09:34→20:22)
--- NOTE | 2024-10-16 09:34 | W.PN.GS2 ---
Today's Communication / Plan
-
Clears.
Out of bed and ambulate
Assessment / Plan
-
Assessment: 69-year-old female with a history of small bowel obstruction status post exploratory laparotomy now POD #3 status post laparoscopic PEH repair with toupet fundoplication, lysis of adhesions
Plan: Multimodal pain control options and will begin resuming gabapentin tomorrow.
Okay for clears
Renew IV fluids
Encourage OOB TC, ambulation and IS use
Lovenox for VTE prophylaxis, will plan for therapeutic anticoagulation once on a full liquid diet
Time Spent
Total Time Spent with Patient (in minutes): 20
Subjective Data
-
Date of Service: October 16, 2024
Interval Events:
No acute events overnight. Slept well. Pain Controlled. Denies Nausea/Vomiting, +bowel function. Tolerating diet.
Objective Data
-
Intake and Output
10/15/24 10/16/24 10/17/24
06:59 06:59 06:59
Intake Total 2260 / 2260 2430 / 2430
Output Total 2750 / 2750 1900 / 1900
Balance -490 / -490 530 / 530
Intake:
Oral fluids 960 / 960 480 / 480
IV fluids (Total) 1100 / 1100 1850 / 1850
IV piggybacks 200 / 200 100 / 100
Output:
Urine, Voided 2750 / 2750 1900 / 1900
Other:
Number of approximated MODERATE 2
amounts of urine
Vital Signs
Temp Pulse Resp BP Pulse Ox
98.2 F 86 16 142/77 94
10/16/24 07:35 10/16/24 07:35 10/16/24 07:35 10/16/24 07:35 10/16/24 08:15
Lab Results
04/12/25 04:50
10/16/24 04:50
Calcium 6.7 mg/dl (8.4-10.2) L* 10/16/24 04:50
Albumin 3.0 g/dl (3.5-5.0) L 10/16/24 04:50
Physical Exam
-
GENERAL/NEURO: Awake, Alert, no distress
CHEST: Unlabored breathing on RA
ABDOMEN: Soft, appropriately tender, still mildly distended, incisions clean dry and intact
Patient has a ortiz catheter: No
Patient has a central line: No
[2024-10-16] MEDS: FLUSH (NSS) 2 FLUSH IV ×3 (10:04→17:00)
[2024-10-16] MEDS: MYLICON 80 MG PO (14:53)
--- NOTE | 2024-10-16 15:24 | PTCARENOTE ---
Pt taking 0.5 IV dilaudid Q2 hours, this RN asked pt about her bowel habits, pt refusing stool softeners, stating that she had one small hard BM this AM. This RN reached out to surgical team for concerns of constipation and dependence on Q2H meds.
This RN also notified MD of heparin lock flush being given Q2 with each administration of pain med per protocol, putting pt at bleeding risk. Surgical team changed medication schedule accordingly. No new orders at this time.
[2024-10-16 15:25] VITALS: BP 125/58
[2024-10-16] MEDS: ROXICODONE ORAL SOLUTION 5 MG PO (15:55)
[2024-10-16] MEDS: LOVENOX 40 MG SC (16:59)
[2024-10-16] MEDS: NEURONTIN PO (22:20)
[2024-10-16 23:47] VITALS: BP 114/61
[2024-10-17] MEDS: DILAUDID 0.5 MG IV ×3 (00:17→07:27)
[2024-10-17] MEDS: MYLICON 80 MG PO ×2 (01:30→14:23)
[2024-10-17 06:25] LABS: Ionized Calcium 1.01 mMOL/L (1.15-1.33)
[2024-10-17 06:31] LABS: Hematocrit 35.2 % (37.0-47.0); Hemoglobin 11.6 g/dL (12.0-16.0); Mean Corpuscular Hgb 30.9 pg (27.0-31.0); Mean Corpuscular Volume 93.6 fL (81.0-99.0); Mean Platelet Volume 9.7 fL (7.4-10.4); Platelet Count 179 10^3/uL (130-400); Red Blood Cell Count 3.76 10^6/uL (4.20-5.40); Red Cell Dist. Width 13.6 % (11.5-14.5); White Blood Cell Count 5.1 10^3/uL (4.8-10.8)
[2024-10-17 06:52] LABS: Blood Urea Nitrogen 5 mg/dl (7-17); Carbon Dioxide 25 mmol/L (22-30); Chloride 110 mmol/L (98-107); Estimated Creatinine Clearance 77 ml/min; Glucose 96 mg/dl (70-99); Potassium 4.3 mmol/L (3.5-5.1); Sodium 140 mmol/L (135-145); eGFR > 60.00
[2024-10-17 07:30] VITALS: BP 138/61
[2024-10-17] MEDS: RESTASIS 0.05% OPHTHALMIC EMULSION 1 DROPS BOTH EYES ×2 (08:13→20:53)
[2024-10-17] MEDS: AMITIZA 24 MCG PO ×2 (08:14→20:53)
[2024-10-17] MEDS: TUMS CHEWABLE TABLET 400 MG PO ×2 (08:14→20:57)
[2024-10-17] MEDS: EFFEXOR XR 150 MG PO (08:14)
[2024-10-17] MEDS: PLAQUENIL 200 MG PO (08:14)
--- NOTE | 2024-10-17 09:38 | W.PN.GS2 ---
Today's Communication / Plan
-
Minimize narcotics.
Will keep on clears
Assessment / Plan
-
Assessment: 69-year-old female with a history of small bowel obstruction status post exploratory laparotomy now POD #4 status post laparoscopic PEH repair with toupet fundoplication, lysis of adhesions
Plan:
Will keep on clears for clears, continue IV fluid hydration.
Will DC IV narcotics, encourage Tylenol and IV Toradol. As needed p.o. narcotics ordered
Encourage OOB TC, ambulation and IS use
Lovenox for VTE prophylaxis, will plan for therapeutic anticoagulation once on a full liquid diet
Time Spent
Total Time Spent with Patient (in minutes): 20
Subjective Data
-
Date of Service: October 17, 2024
Interval Events:
No acute events overnight. Slept well. Pain Controlled. Denies Nausea/Vomiting but distended after clears yesterday. +bowel function.
Objective Data
-
Intake and Output
10/16/24 10/17/24 10/18/24
06:59 06:59 06:59
Intake Total 2430 / 2430 1460 / 1460
Output Total 1900 / 1900 600 / 600
Balance 530 / 530 860 / 860
Intake:
Oral fluids 480 / 480 1060 / 1060
IV fluids (Total) 1850 / 1850 400 / 400
IV piggybacks 100 / 100
Output:
Urine, Voided 1900 / 1900 600 / 600
Other:
Number of approximated MODERATE 4
amounts of urine
Vital Signs
Temp Pulse Resp BP Pulse Ox
98.4 F 83 16 138/61 93
10/17/24 07:30 10/17/24 07:30 10/17/24 07:30 10/17/24 07:30 10/17/24 07:30
Lab Results
10/17/24 06:07
10/17/24 06:07
Calcium 8.0 mg/dl (8.4-10.2) L 10/17/24 06:07
Albumin 3.0 g/dl (3.5-5.0) L 10/16/24 04:50
Physical Exam
-
GENERAL/NEURO: Awake, Alert, no distress
CHEST: Unlabored breathing on RA
ABDOMEN: Soft, Non-Tender, Distended, incisions clean dry and intact.
Patient has a ortiz catheter: No
Patient has a central line: No
[2024-10-17] MEDS: MIRALAX 17 GRAMS PO (10:55)
[2024-10-17] MEDS: TORADOL 15 MG IV (10:55)
[2024-10-17 15:30] VITALS: BP 148/73
[2024-10-17] MEDS: LOVENOX 40 MG SC (17:33)
[2024-10-17] MEDS: ROXICODONE ORAL SOLUTION 5 MG PO ×2 (17:38→22:13)
[2024-10-17] MEDS: NEURONTIN 1200 MG PO (22:12)
[2024-10-17 23:23] VITALS: BP 144/70
[2024-10-18] MEDS: ROXICODONE ORAL SOLUTION 5 MG PO ×4 (05:16→20:08)
[2024-10-18 07:26] VITALS: BP 133/64
[2024-10-18] MEDS: PLAQUENIL 200 MG PO (07:34)
[2024-10-18] MEDS: MIRALAX PO ×2 (07:34→08:09)
[2024-10-18] MEDS: TUMS CHEWABLE TABLET 400 MG PO ×2 (07:34→20:08)
[2024-10-18] MEDS: AMITIZA 24 MCG PO ×2 (07:35→20:07)
[2024-10-18] MEDS: RESTASIS 0.05% OPHTHALMIC EMULSION 1 DROPS BOTH EYES ×2 (07:35→20:08)
[2024-10-18] MEDS: EFFEXOR XR 150 MG PO (07:35)
--- NOTE | 2024-10-18 10:15 | W.PN.GS2 ---
Today's Communication / Plan
-
Full liquid diet
Resume anticoagulation
Dispo planning
Assessment / Plan
-
Assessment: 69-year-old female with a history of small bowel obstruction status post exploratory laparotomy now POD #5 status post laparoscopic PEH repair with toupet fundoplication, lysis of adhesions
Plan:
Will start on a full liquid diet. Therapeutic anticoagulation started.
Anticipate discharge later today pending her toleration of the full liquid diet.
Time Spent
Total Time Spent with Patient (in minutes): 20
Subjective Data
-
Date of Service: October 18, 2024
Interval Events:
No acute events overnight. Slept well. Pain Controlled. Denies Nausea/Vomiting, +bowel function. Tolerating diet.
Objective Data
-
Intake and Output
10/17/24 10/18/24 10/19/24
06:59 06:59 06:59
Intake Total 1460 / 1460 820 / 820
Output Total 600 / 600
Balance 860 / 860 820 / 820
Intake:
Oral fluids 1060 / 1060 820 / 820
IV fluids (Total) 400 / 400
Output:
Urine, Voided 600 / 600
Other:
Number of approximated SMALL 2
amounts of urine
Number of approximated MODERATE 4 3
amounts of urine
Number of unmeasured liquid
stools
Rectum 3
Vital Signs
Temp Pulse Resp BP Pulse Ox
98.5 F 68 16 133/64 98
10/18/24 07:26 10/18/24 07:26 10/18/24 07:26 10/18/24 07:26 10/18/24 07:26
Lab Results
10/17/24 06:07
10/17/24 06:07
Calcium 8.0 mg/dl (8.4-10.2) L 10/17/24 06:07
Albumin 3.0 g/dl (3.5-5.0) L 10/16/24 04:50
Physical Exam
-
GENERAL/NEURO: Awake, Alert, no distress
CHEST: Unlabored breathing on RA
ABDOMEN: Soft, Non-Tender, still mildly distended but improved. Incisions clean dry and intact.
Patient has a ortiz catheter: No
Patient has a central line: No
--- NOTE | 2024-10-18 10:20 | CM ---
CM reviewed medical records. Patient for possible discharge today. CM will continue to follow.
PLAN: Home no needs noted.
[2024-10-18] MEDS: MYLICON 80 MG PO ×2 (10:22→15:30)
[2024-10-18 15:17] VITALS: BP 135/64
[2024-10-18] MEDS: XARELTO 10 MG PO (17:48)
[2024-10-18] MEDS: COLACE 100 MG PO (20:07)
[2024-10-18] MEDS: KLONOPIN 2 MG PO (22:16)
[2024-10-18] MEDS: NEURONTIN 1200 MG PO (22:16)
[2024-10-18 23:36] VITALS: BP 143/68
[2024-10-19 05:10] LABS: Hematocrit 34.2 % (37.0-47.0); Hemoglobin 11.4 g/dL (12.0-16.0); Mean Corp Hgb Conc. 33.3 g/dL (33.0-37.0); Mean Corpuscular Hgb 31.1 pg (27.0-31.0); Mean Corpuscular Volume 93.2 fL (81.0-99.0); Mean Platelet Volume 9.5 fL (7.4-10.4); Platelet Count 214 10^3/uL (130-400); Red Blood Cell Count 3.67 10^6/uL (4.20-5.40); Red Cell Dist. Width 13.7 % (11.5-14.5); White Blood Cell Count 5.7 10^3/uL (4.8-10.8)
[2024-10-19 05:41] LABS: Blood Urea Nitrogen 7 mg/dl (7-17); Calcium 8.9 mg/dl (8.4-10.2); Carbon Dioxide 27 mmol/L (22-30); Chloride 106 mmol/L (98-107); Estimated Creatinine Clearance 66 ml/min; Glucose 93 mg/dl (70-99); Potassium 3.8 mmol/L (3.5-5.1); Sodium 142 mmol/L (135-145); eGFR > 60.00
[2024-10-19 07:20] VITALS: BP 128/64
[2024-10-19] MEDS: EFFEXOR XR 150 MG PO (08:03)
[2024-10-19] MEDS: COLACE 100 MG PO ×2 (08:03→20:30)
[2024-10-19] MEDS: TUMS CHEWABLE TABLET 400 MG PO ×2 (08:03→20:30)
[2024-10-19] MEDS: AMITIZA 24 MCG PO ×2 (08:03→20:30)
[2024-10-19] MEDS: PLAQUENIL 200 MG PO (08:03)
[2024-10-19] MEDS: RESTASIS 0.05% OPHTHALMIC EMULSION 1 DROPS BOTH EYES ×2 (08:04→20:30)
[2024-10-19] MEDS: MIRALAX PO (08:04)
[2024-10-19] MEDS: MYLICON 80 MG PO ×2 (08:06→20:31)
[2024-10-19] MEDS: ROXICODONE ORAL SOLUTION 5 MG PO ×4 (08:06→22:34)
--- NOTE | 2024-10-19 10:32 | CM ---
CM reviewed medical records.
PLAN: No needs noted on discharge.
--- NOTE | 2024-10-19 12:46 | W.PN.GS2 ---
Today's Communication / Plan
-
Fulls
A/C
Ambulate
Assessment / Plan
-
Assessment: 69-year-old female with a history of small bowel obstruction status post exploratory laparotomy now POD #6 status post laparoscopic PEH repair with toupet fundoplication, lysis of adhesions
KUB today with non-obstructive gas pattern
Plan:
Cont fulls
Therapeutic anticoagulation, cont.
She feels unready for DC today, anticipate tomorrow provided no further issues after eating
Subjective Data
-
Date of Service: October 19, 2024
AFVSS, stevie fulls, had some pain last night for about 15 min, upper abdomen, self-limited, no issues with breakfast, denies n/v, passing flatus and stool
Objective Data
-
Intake and Output
10/18/24 10/19/24 10/20/24
06:59 06:59 06:59
Intake Total 820 / 820 560 / 560
Balance 820 / 820 560 / 560
Intake:
Oral fluids 820 / 820 560 / 560
Other:
Number of approximated SMALL 2 1
amounts of urine
Number of approximated MODERATE 3 3
amounts of urine
Number of unmeasured liquid
stools
Rectum 3
Vital Signs
Temp Pulse Resp BP Pulse Ox
98.1 F 81 15 128/64 97
10/19/24 07:20 10/19/24 07:20 10/19/24 07:20 10/19/24 07:20 10/19/24 10:47
Lab Results
10/19/24 04:58
10/19/24 04:58
Calcium 8.9 mg/dl (8.4-10.2) 10/19/24 04:58
Albumin 3.0 g/dl (3.5-5.0) L 10/16/24 04:50
Physical Exam
-
Gen: NAD
Abd: softly distended, incisions cdi
Patient has a ortiz catheter: No
Patient has a central line: No
[2024-10-19 15:30] VITALS: BP 105/66
[2024-10-19] MEDS: XARELTO 10 MG PO (17:01)
[2024-10-19] MEDS: KLONOPIN 2 MG PO (22:34)
[2024-10-19] MEDS: NEURONTIN 1200 MG PO (22:34)
[2024-10-19 23:17] VITALS: BP 119/60
[2024-10-20] MEDS: ROXICODONE ORAL SOLUTION 5 MG PO (06:13)
[2024-10-20 07:20] VITALS: BP 123/61
[2024-10-20] MEDS: TUMS CHEWABLE TABLET 400 MG PO (08:16)
[2024-10-20] MEDS: MYLICON 80 MG PO (08:17)
[2024-10-20] MEDS: PLAQUENIL 200 MG PO (08:17)
[2024-10-20] MEDS: EFFEXOR XR 150 MG PO (08:17)
[2024-10-20] MEDS: AMITIZA 24 MCG PO (08:17)
[2024-10-20] MEDS: RESTASIS 0.05% OPHTHALMIC EMULSION 1 DROPS BOTH EYES (08:17)
[2024-10-20] MEDS: COLACE 100 MG PO (08:17)
[2024-10-20] MEDS: MIRALAX PO (08:18)
--- NOTE | 2024-10-20 11:25 | W.PN.GS2 ---
Today's Communication / Plan
-
DC
Assessment / Plan
-
Assessment: 69-year-old female with a history of small bowel obstruction status post exploratory laparotomy now POD #7 status post laparoscopic PEH repair with toupet fundoplication, lysis of adhesions
KUB yesterday with non-obstructive gas pattern
Plan:
DC home
Subjective Data
-
Date of Service: October 20, 2024
AFVSS, stevie PO, passing flatus, ambulating, feels better
Objective Data
-
Intake and Output
10/19/24 10/20/24 10/21/24
06:59 06:59 06:59
Intake Total 560 / 560 1700 / 1700
Balance 560 / 560 1700 / 1700
Intake:
Oral fluids 560 / 560 1700 / 1700
Other:
Number of approximated SMALL 1
amounts of urine
Number of approximated MODERATE 3 3
amounts of urine
Vital Signs
Temp Pulse Resp BP Pulse Ox
97.6 F 73 16 123/61 97
10/20/24 07:20 10/20/24 07:20 10/20/24 07:20 10/20/24 07:20 10/20/24 07:20
Lab Results
10/19/24 04:58
10/19/24 04:58
Calcium 8.9 mg/dl (8.4-10.2) 10/19/24 04:58
Albumin 3.0 g/dl (3.5-5.0) L 10/16/24 04:50
Physical Exam
-
Gen: NAD
Abd: soft, incisions cdi, moderate distention
Patient has a ortiz catheter: No
Patient has a central line: No
--- NOTE | 2024-10-20 11:27 | W.DS.TRANS ---
Addendum entered and electronically signed by ETHEL Small 10/22/24 09:31:
dictated #[id number]
Original Note:
DC Summary - [employer]
-
Discharge Instructions:
Discharge Diagnosis/Procedures Laparoscopic paraesophageal hernia repair with
fundoplication and intra-operative EGD
Activity No strenuous activity
Additional Activity Do not lift over 15 lbs for the next 2-3 weeks
Wound Care Allow the glue to flake off your incisions over
the next 2-3 weeks. Avoid soaking in a tub or
pool during this time.
Instructions:
Stand-Alone Forms:
Changes to Home Medications: No
Discharge Medications:
DC Medications w/original date entered in [facility]
melatonin 5 mg tablet 10 mg PO HS Sleep 10/11/15
lubiprostone 24 mcg capsule 24 mcg PO BID 09/17/17
calcium 600 mg-D3 20 mcg-magnesium 50 fz-Qm-cvlixb-clotilde-boron tablet (Calcium 600-D3 Plus (mag-zinc)) 1 ea PO BID Supplement 08/06/19
denosumab 60 mg/mL subcutaneous syringe (Prolia) 60 mg SC [id number] osteoporosis ##0 11/18/19
cevimeline 30 mg capsule 1 cap PO TID 01/13/23
cyclosporine 0.05 % eye drops in a dropperette (Restasis) 1 drp BOTH EYES BID Eye Condition 01/13/23
dupilumab 300 mg/2 mL subcutaneous syringe (Dupixent) 300 mg SC Q2W Skin Issues 01/13/23
gabapentin 600 mg tablet 1,200 mg PO HS Pain 01/13/23
hydroxychloroquine 200 mg tablet 200 mg PO DAILY Autoimmune Disorder 01/13/23
venlafaxine 150 mg capsule,extended release 24 hr 150 mg PO DAILY Mental Health/Anxiety 01/13/23
bisacodyl 5 mg tablet 10 mg PO HS 07/10/23
famotidine 40 mg tablet 40 mg PO BID Gastrointestinal Issue 07/10/23
methenamine hippurate 1 gram tablet 1 g PO DAILY Infection 07/10/23
rivaroxaban 10 mg tablet (Xarelto) 10 mg PO DAILY Blood Clot Prevention/Tx 09/23/23
clonazepam 2 mg tablet 2 mg PO HS 06/16/24
dexlansoprazole 60 mg capsule,biphase delayed release 60 mg PO DAILY 06/16/24
levalbuterol tartrate 45 mcg/actuation aerosol inhaler (Xopenex HFA) 2 inh inhalation Q6H PRN asthma 06/19/24
cholecalciferol (vitamin D3) 25 mcg (1,000 unit) capsule (Vitamin D3) 25 mcg PO DAILY 10/05/24
gabapentin 600 mg tablet 600 mg PO DAILY 10/13/24
acetaminophen 325 mg tablet 650 mg (2 x 325 mg) PO Q4HPRN PRN mild pain #1 tab 10/18/24
oxycodone 5 mg tablet 5 mg PO Q4HPRN PRN breakthrough/severe pain #15 tabs 10/18/24
Home Medication Changes
Pending Results: No
--- NOTE | 2024-10-20 11:55 | CM ---
CM reviewed medical records. Plan for discharge to home with no needs.
PLAN: home no needs.
[2024-10-20 13:34] VITALS: BP 120/71
[2024-10-20] MEDS: ULTRAM 100 MG PO (13:37)
== END 2024-10-20 14:33 | disposition home or self-care (01) | DRG 327 ==
LOC: 2 NORTH 14:32
PROVIDERS: Registered Nurse; ADMITTING PHYSICIAN Surgery; FAMILY PHYSICIAN Family Medicine
PROC: 0DV44ZZ Restriction of Esophagogastric Junction, Percutaneous Endoscopic Approach (ICD-10-PCS; 2024-10-13)
PROC: 0DNE4ZZ Release Large Intestine, Percutaneous Endoscopic Approach (ICD-10-PCS; 2024-10-13)
PROC: 0DJ08ZZ Inspection of Upper Intestinal Tract, Via Natural or Artificial Opening Endoscopic (ICD-10-PCS; 2024-10-13)
PROC: 0BQT4ZZ Repair Diaphragm, Percutaneous Endoscopic Approach (ICD-10-PCS; 2024-10-13)
PROC: 0DNU4ZZ Release Omentum, Percutaneous Endoscopic Approach (ICD-10-PCS; 2024-10-13)
PROC: 0DN84ZZ Release Small Intestine, Percutaneous Endoscopic Approach (ICD-10-PCS; 2024-10-13)
DX: K44.9 Diaphragmatic hernia without obstruction or gangrene (principal); D68.51 Activated protein C resistance; K56.7 Ileus, unspecified; K66.0 Peritoneal adhesions (postprocedural) (postinfection); G89.4 Chronic pain syndrome; M35.00 Sjogren syndrome, unspecified; K21.9 Gastro-esophageal reflux disease without esophagitis; E78.5 Hyperlipidemia, unspecified; G47.33 Obstructive sleep apnea (adult) (pediatric); Z95.828 Presence of other vascular implants and grafts; Z79.01 Long term (current) use of anticoagulants
CPT/HCPCS: 36415; 74018; 80048; 82040; 82330; 85025; 85027; 93005

== ENCOUNTER → 2024-11-13 08:53 | Outpatient (REF) | payer MEDICARE, SELFPAY ==
[2024-11-13 10:10] LABS: % Basophils 0.3 % (0-2); % Eosinophils 2.9 % (0-6); % Immature Granulocytes 0.2 % (0-0.5); % Lymphocytes 28.6 % (20.5-51.1); % Monocytes 7.5 % (1.7-9.3); % Neutrophils 60.5 % (42.2-75.2); Absolute Eosinophils 0.2 10^3/uL (0-0.7); Absolute Lymphocytes 1.7 10^3/uL (1.2-3.4); Absolute Monocytes 0.4 10^3/uL (0.1-0.6); Absolute Neutrophils 3.6 10^3/uL (1.4-6.5); Hematocrit 36.7 % (37.0-47.0); Hemoglobin 12.1 g/dL (12.0-16.0); Mean Corpuscular Hgb 30.5 pg (27.0-31.0); Mean Corpuscular Volume 92.4 fL (81.0-99.0); Mean Platelet Volume 10.6 fL (7.4-10.4); Nucleated Red Blood Cells % 0 %; Platelet Count 173 10^3/uL (130-400); Red Blood Cell Count 3.97 10^6/uL (4.20-5.40); Red Cell Dist. Width 13.8 % (11.5-14.5); White Blood Cell Count 5.9 10^3/uL (4.8-10.8)
[2024-11-13 10:11] LABS: Ionized Calcium 1.13 mMOL/L (1.15-1.33)
[2024-11-13 11:14] LABS: Intact PTH 108.2 pg/ml (13.6-85.8)
[2024-11-13 11:19] LABS: Protein/creatinine Ratio 0.5; Urine Protein 13 mg/dl
[2024-11-13 11:58] LABS: ALT (SGPT) 20 U/L (0-35); AST (SGOT) 22 U/L (14-36); Albumin 4.2 g/dl (3.5-5.0); Alkaline Phosphatase 69 U/L (38-126); Blood Urea Nitrogen 13 mg/dl (7-17); Calcium 8.8 mg/dl (8.4-10.2); Carbon Dioxide 25 mmol/L (22-30); Chloride 106 mmol/L (98-107); Glucose 87 mg/dl (70-99); Sodium 139 mmol/L (135-145); Total Bilirubin 0.6 mg/dl (0.2-1.3); Total Protein 6.5 g/dl (6.3-8.2); eGFR > 60.00
== END ==
LOC: REG 08:53
PROVIDERS: ATTENDING PHYSICIAN Internal Medicine; FAMILY PHYSICIAN Family Medicine
DX: R80.9 Proteinuria, unspecified (principal); E83.51 Hypocalcemia; Z98.890 Other specified postprocedural states
CPT/HCPCS: 36415; 80053; 82330; 82570; 83970; 84100; 84156; 85025

== ENCOUNTER → 2024-12-07 09:40 | Outpatient (REF) | payer MEDICARE, SELFPAY ==
[2024-12-07 11:25] LABS: Vitamin D, 25-OH*** 29.2 ng/mL (30-80)
== END ==
LOC: REG 09:40
PROVIDERS: ATTENDING PHYSICIAN Internal Medicine; FAMILY PHYSICIAN Family Medicine
DX: D64.9 Anemia, unspecified (principal); R80.9 Proteinuria, unspecified; E21.3 Hyperparathyroidism, unspecified; R76.8 Other specified abnormal immunological findings in serum; E87.6 Hypokalemia
CPT/HCPCS: 36415; 82306

== ENCOUNTER → 2024-12-09 10:18 | Outpatient (REF) | payer MEDICARE, SELFPAY ==
[2024-12-09 10:54] LABS: 24 Hour Urine Total Volume 1700 ml
[2024-12-09 11:51] LABS: 24 Hour Urine Calcium 132.6 mg/day; Urine Calcium 7.8 mg/dl
[2024-12-09 12:14] LABS: 24 Hour Urine Creatinine 0.771 gm/day (0.8-1.8); Urine Protein 11 mg/dl (0-12)
== END ==
LOC: REG 10:18
PROVIDERS: ATTENDING PHYSICIAN Internal Medicine; FAMILY PHYSICIAN Family Medicine
DX: D64.9 Anemia, unspecified (principal); R80.9 Proteinuria, unspecified; E21.3 Hyperparathyroidism, unspecified; R76.8 Other specified abnormal immunological findings in serum; E87.6 Hypokalemia
CPT/HCPCS: 81050; 82340; 82570; 84156

== ENCOUNTER → 2025-02-17 09:44 | Outpatient (REF) | payer MEDICARE, SELFPAY ==
[2025-02-17 11:19] LABS: Hematocrit 38.3 % (37.0-47.0); Hemoglobin 12.3 g/dL (12.0-16.0); Mean Corp Hgb Conc. 32.1 g/dL (33.0-37.0); Mean Corpuscular Volume 96.0 fL (81.0-99.0); Nucleated Red Blood Cells % 0 %; Platelet Count 243 10^3/uL (130-400); Red Cell Dist. Width 13.7 % (11.5-14.5)
[2025-02-17 11:21] LABS: Urine Character Clear (Clear)
[2025-02-17 11:30] LABS: Urine Red Blood Cell 0-2 /HPF (0-2); Urine White Cell 0-2 /HPF (0-5)
[2025-02-17 11:59] LABS: C-Reactive Protein < 5.00 mg/L (0.0-10.00)
[2025-02-17 12:16] LABS: Vitamin D, 25-OH*** 40.6 ng/mL (30-80)
[2025-02-17 12:18] LABS: ALT (SGPT) 18 U/L (0-35); AST (SGOT) 20 U/L (14-36); Albumin 4.2 g/dl (3.5-5.0); Alkaline Phosphatase 65 U/L (38-126); Blood Urea Nitrogen 10 mg/dl (7-17); Calcium 8.7 mg/dl (8.4-10.2); Carbon Dioxide 21 mmol/L (22-30); Chloride 108 mmol/L (98-107); Glucose 77 mg/dl (70-99); Potassium 4.2 mmol/L (3.5-5.1); Sodium 136 mmol/L (135-145); Total Protein 6.6 g/dl (6.3-8.2); eGFR > 60.00
== END ==
LOC: REG 09:44
PROVIDERS: ATTENDING PHYSICIAN Internal Medicine Rheumatology; FAMILY PHYSICIAN Family Medicine
DX: E55.9 Vitamin D deficiency, unspecified (principal); M15.0 Primary generalized (osteo)arthritis; M35.01 Sjogren syndrome with keratoconjunctivitis; M81.0 Age-related osteoporosis without current pathological fracture; R76.8 Other specified abnormal immunological findings in serum; Z11.59 Encounter for screening for other viral diseases; Z79.899 Other long term (current) drug therapy
CPT/HCPCS: 36415; 80053; 81003; 81015; 82306; 82570; 84156; 85025; 86140; 86160

== ENCOUNTER 2025-03-20 10:09 | Emergency (ER) | payer MEDICARE, SELFPAY ==
[2025-03-20 10:10] VITALS: BP 128/86
--- NOTE | 2025-03-20 13:07 | ED.GENMED ---
History of Present Illness
General
Chief Complaint: Extremity Pain (non-traumatic)
Source: patient
Time Seen by Provider: 03/20/25 10:31
History of Present Illness
History of Present Illness:
69-year-old female presents with right calf pain. She has a history of DVT and is concerned she has a DVT. Patient was sent by her human resource officer because of her concern. Patient is on Xarelto at home. No shortness of breath. No chest pain. No
hemoptysis.
Past History
Past History
ED Past Medical History: Arrthythmia (PVC's), Asthma, GERD, Other (Pulmonary embolism, DVT, factor V Leiden deficiency , Bowel obstructions, PNA, Hiatal hernia, GI bleeding, C. Diff, anemia) and Other (Sjogren's, osteoporosis, sleep apnea)
ED Past Surgical History: Appendectomy, Bowel resection (Multiple episodes of bowel obstruction), Cholecystectomy, Gynecological (Hysterectomy Total), Orthopedic (R shoulder surgery) and Other ([place] filter)
Social History
Tobacco: Non-smoker
Alcohol: Occasional
Drug: None
Personal:
Living: with family
Employment: Employed
Family History
Family History: Other (Diabetes, coronary disease)
Phy Exam
Physical Exam
Physical Exam:
. CONSTITUTIONAL Vital signs reviewed, Patient alert and oriented to person, place and time. Well-appearing
HEAD atraumatic, normocephalic.
EYES eyelids normal to inspection, Extraocular muscles intact, Conjunctiva normal, Sclera normal.
NECK normal range of motion, Trachea midline, no jugular venous distention.
RESP no respiratory distress
BACK No obvious deformities
UPPER EXTREMITY Gross Range of motion normal, gross motor strength normal
LOWER EXTREMITY Gross range of motion normal, Gross motor strength normal. Normal distal perfusion bilaterally in the feet. No palpable cords. No edema. Does have tenderness in the mid belly of the right Calf
NEURO Speech normal, No focal motor deficits include, George coma scale 15, Memory normal, Cranial Nerves intact to screening exam.
SKIN Skin warm, dry, and normal in color.
PSYCHIATRIC Patient oriented to person place and time, Normal affect.
Course
Orders/Labs/Results
Orders:
Orders
03/20/25 10:20
US Periph Venous LOWER Ext RT Urgent
Comment:
Reason For Exam: calf pain
Vital Signs
Initial and Last Documented VS:
Initial Vital Signs
Temp Pulse Resp BP Pulse Ox
98.5 F 104 16 128/86 98
03/20/25 10:10 03/20/25 10:10 03/20/25 10:10 03/20/25 10:10 03/20/25 10:10
Last Documented Vital Signs
Temp Pulse Resp BP Pulse Ox
98.5 F 104 16 128/86 98
03/20/25 10:10 03/20/25 10:10 03/20/25 10:10 03/20/25 10:10 03/20/25 10:10
*Radiology
Radiology exam reviewed: radiology read reviewed (No DVT)
*Pulse Oximetry
SaO2: 98
Oxygen Mode of Delivery: Room air
Patient hypoxic: no
*Critical Care Note
Total Time (30-74mins, 75-104mins- exclusive of procedures): Not Applicable
Patient Management
Escalation/DeEscalation of care consider admission/obs:
DVT scan negative. Recommended repeat ultrasound in 2 weeks if symptoms persist. Okay for outpatient follow-up
ED Attending Note
-
Portions of this chart may have been created with voice recognition software.� Occasional wrong word or��sound alike� substitutions may have occurred due to the inherent limitations of voice recognition software.
Discharge Plan
Departure
Patient Disposition: Home (Routine Discharge)
Date of Disposition: 03/20/25
Time of Disposition: 13:08
Patient with high blood pressure during this ER visit?: No
Discharge Problem:
Calf pain
Prescriptions:
No Action
melatonin 5 MG tablet
10 mg PO HS
lubiprostone 24 MCG capsule
24 mcg PO BID 0RF
Ca-D3-mag le-mdni-ltp-lexie-bor [Calcium 600-D3 Plus (mag-zinc)] 1 EACH tablet
1 ea PO BID
Prolia 60 mg/mL Syringe
60 mg SC [id number] Qty: 0
gabapentin 600 mg Tablet
1,200 mg PO HS
venlafaxine 150 mg Capsule,Extended Release 24hr
150 mg PO DAILY
cevimeline 30 mg Capsule
1 cap PO TID
hydroxychloroquine 200 mg Tablet
200 mg PO DAILY
cyclosporine [Restasis] 0.05 % Dropperette
1 drp BOTH EYES BID
Dupixent Syringe 300 mg/2 mL Syringe
300 mg SC Q2W
bisacodyl 5 mg Tablet
10 mg PO HS
methenamine hippurate 1 GRAM tablet
1 g PO DAILY
famotidine 40 mg Tablet
40 mg PO BID
Xarelto 10 mg Tablet
10 mg PO DAILY
clonazepam 2 mg Tablet
2 mg PO HS
dexlansoprazole 60 mg Capsule,Biphase Delayed Releas
60 mg PO DAILY
levalbuterol tartrate [Xopenex HFA] 45 mcg/actuation Hfa Aerosol Inhaler
2 inh INHALATION Q6H PRN (Reason: asthma)
cholecalciferol (vitamin D3) [Vitamin D3] 25 mcg (1,000 unit) Capsule
25 mcg PO DAILY
gabapentin 600 mg Tablet
600 mg PO DAILY
oxycodone 5 mg tablet
5 mg PO Q4HPRN PRN (Reason: breakthrough/severe pain) Qty: 15 0RF
acetaminophen 325 mg tablet
650 mg PO Q4HPRN PRN (Reason: mild pain) Qty: 1 0RF
Referrals:
Wilma Shirley DO [Family Provider, Family Practice]
Activity Restrictions/Additional Instructions:
Calf Pain
Please repeat your ultrasound in 2 weeks if any symptoms persist. Please see your doctor in the next 1 week for follow-up and reevaluation. Return immediately for swelling of the leg, fevers, redness or any other concerns.
Interventions
Interventions:
ED-Musculoskeletal Assessment Last Done: 03/20/25 10:10
Discharge Date and Time
Print Language: NEPALI
== END 2025-03-20 13:25 | disposition home or self-care (01) ==
LOC: EMR 10:09
PROVIDERS: EMERGENCY PHYSICIAN Emergency Medicine; FAMILY PHYSICIAN Family Medicine
DX: M79.661 Pain in right lower leg (principal); J45.909 Unspecified asthma, uncomplicated; G47.30 Sleep apnea, unspecified; D68.51 Activated protein C resistance; K21.9 Gastro-esophageal reflux disease without esophagitis; M35.00 Sjogren syndrome, unspecified; M81.0 Age-related osteoporosis without current pathological fracture; Z79.01 Long term (current) use of anticoagulants; Z86.718 Personal history of other venous thrombosis and embolism; Z86.711 Personal history of pulmonary embolism; Z86.19 Personal history of other infectious and parasitic diseases; Z82.49 Family history of ischemic heart disease and other diseases of the circulatory system
CPT/HCPCS: 99284; 93971

== ENCOUNTER → 2025-03-24 14:30 | Outpatient (REF) | payer MEDICARE, SELFPAY ==
[2025-03-24 14:15] LABS: Hematocrit 38.1 % (37.0-47.0); Hemoglobin 12.5 g/dL (12.0-16.0); Mean Corp Hgb Conc. 32.8 g/dL (33.0-37.0); Mean Corpuscular Volume 94.8 fL (81.0-99.0); Platelet Count 259 10^3/uL (130-400); Red Cell Dist. Width 13.3 % (11.5-14.5)
[2025-03-24 15:30] LABS: Iron 82 ug/dl (37-170)
[2025-03-24 15:40] LABS: Total Iron Binding Capacity 267 ug/dl (265-497)
[2025-03-24 16:07] LABS: Ferritin 90.4 ng/ml (11.1-264.0)
== END ==
LOC: OIDL 14:30
PROVIDERS: ATTENDING PHYSICIAN Internal Medicine Hematology & Oncology
DX: D68.52 Prothrombin gene mutation (principal); D50.9 Iron deficiency anemia, unspecified; Z88.8 Allergy status to other drugs, medicaments and biological substances; D47.2 Monoclonal gammopathy
CPT/HCPCS: 82232; 82728; 82784; 83521; 83540; 83550; 84155; 84165; 85025; 86334

== ENCOUNTER → 2025-04-01 14:48 | Outpatient (REF) | payer MEDICARE, SELFPAY ==
[2025-04-01 16:14] LABS: ALT (SGPT) 17 U/L (0-35); AST (SGOT) 20 U/L (14-36); Albumin 4.2 g/dl (3.5-5.0); Alkaline Phosphatase 64 U/L (38-126); Total Protein 7.0 g/dl (6.3-8.2)
== END ==
LOC: REG 14:48
PROVIDERS: ATTENDING PHYSICIAN Orthopaedic Surgery; PRIMARYCARE PHYSICIAN Family Medicine
DX: B35.1 Tinea unguium (principal)
CPT/HCPCS: 36415; 80076

== ENCOUNTER → 2025-05-30 06:45 | Outpatient (REF) | payer MEDICARE, SELFPAY ==
[2025-05-30 08:56] LABS: ALT (SGPT) 21 U/L (0-35); AST (SGOT) 21 U/L (14-36); Albumin 3.4 g/dl (3.5-5.0); Alkaline Phosphatase 57 U/L (38-126); HDL Cholesterol 56 mg/dl; LDL Cholesterol, Calculated 78 mg/dl; Total Protein 5.7 g/dl (6.3-8.2); Very Low Density Lipoprotein 13 mg/dl (0-30)
== END ==
LOC: REG 06:45
PROVIDERS: ATTENDING PHYSICIAN Podiatrist Foot Surgery; FAMILY PHYSICIAN Family Medicine
DX: Z13.220 Encounter for screening for lipoid disorders (principal); B35.1 Tinea unguium
CPT/HCPCS: 36415; 80061; 80076

== ENCOUNTER → 2025-06-20 13:47 | Emergency (ER) | payer MEDICARE, SELFPAY ==
[2025-06-20 14:01] VITALS: BP 147/83
--- NOTE | 2025-06-20 15:34 | ED.MUSCINJ ---
HPI-Injury
General
Chief Complaint: Fall
Source: patient
Exam Limitations: none
Time Seen by Provider: 06/20/25 15:23
Nursing documentation reviewed up to this point in time: agreed with
History of Present Illness-Injury
Initial Injury comments:
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
history of falls, numerous orthopedic procedures, spinal cord stimulator for chronic pain. She states her right toe caught on the rug in her bedroom this afternoon 2 hours ago and she went down with direct impact to the right knee. She denies any
other injury. She was able to get up and ambulate, she drove herself here. She states now she has pain about the knee with spasms going up and down her leg. Pain 6/10 at rest 10/10 moving/walking.
Past History
Past History
ED Past Medical History: Arrthythmia (PVC's), Asthma, GERD, Other (Pulmonary embolism, DVT, factor V Leiden deficiency , Bowel obstructions, PNA, Hiatal hernia, GI bleeding, C. Diff, anemia) and Other (Sjogren's, osteoporosis, sleep apnea)
ED Past Surgical History: Appendectomy, Bowel resection (Multiple episodes of bowel obstruction), Cholecystectomy, Gynecological (Hysterectomy Total), Orthopedic (R shoulder surgery) and Other ([place] filter)
Social History
Tobacco: Non-smoker
Alcohol: Occasional
Drug: None
Personal:
Living: with family
Employment: Employed
Family History
Family History: Other (Diabetes, coronary disease)
Review of Systems
Review of Systems
Allergies reviewed?: Yes
All Other Systems: ROS reviewed and negative except as documented in HPI and ROS
Musculoskeletal Injury Exam
Musculoskeletal Injury Exam
Right Knee:
Pain with Movement?: Moderate
Tender to palpation?: Moderate
Soft tissue swelling?: Mild
External deformity and angulation?: None
Joint effusion?: None
Strain- Sprain- Tear (Connective tissue injury)?: Moderate
Crepitus with movement?: No
Joint instability?: No
Malalignment/deformity?: No
Range of motion: Limited (Chronically)
Distal skin color and temperature: normal-warm & good color
Normal distal neurovascular exam?: Yes
Phy Exam
Physical Exam
Physical Exam:
PHYSICAL EXAMINATION:
General: no apparent distress, not acutely ill
Neuro: alert and oriented.
Psychiatric: well kept. interactive and cooperative
Musculoskeletal: Moves with ease
Skin: Warm, pink.
Injury Course
Orders/Labs/Results
Orders:
Orders
06/20/25 14:05
Knee, Right 4 or More Views [CR Knee- Right 4 Or More View*] Urgent
Comment:
Reason For Exam: fall, landed on right knee
06/20/25 15:33
Knee Immobilizer Right-Treatme ONCE
MDM/Problems Addressed
MDM/Problems Addressed:
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
history of falls, numerous orthopedic procedures, spinal cord stimulator for chronic pain. She states her right toe caught on the rug in her bedroom this afternoon 2 hours ago and she went down with direct impact to the right knee. She denies any
other injury. She was able to get up and ambulate, she drove herself here. She states now she has pain about the knee with spasms going up and down her leg. Pain 6/10 at rest 10/10 moving/walking.
No significant swelling of the R knee.
Xray initially read by this examiner, reveals no acute finding
Knee immobilizer applied
Rx for Tramadol #10 sent to her pharmacy
Referred to her Maame lind for f/u
Patient requesting something stronger for pain than tramadol, she states she has been on hydrocodone, oxycodone, OxyContin in the past for orthopedic conditions and the only thing that works for her is Dilaudid
I explained to her that for this type of injury we do not give strong narcotic pain medications, she was insistent, I offered to give her tramadol and sent a prescription to her pharmacy.
Patient standing out of bed getting dressed with no apparent difficulty. She drove here and she states she is 'fine' to drive home.
Knee immobilizer applied and and crutches offered and instructed her to use the crutches if she is having that much pain.
She said okay to all this but then just prior to discharge she sent the nurse to me to ask for something stronger than tramadol I went back up to her and explained all of the above over again and she said 'okay.'
She asked if she could have a tramadol now, she said her will come and pick her up. I told her her will have to come to the room to get her so we can be sure that this is the case.
She now declines the Tramadol and will drive herself home
After knee immobilizer applied she ambulated well and did accept the crutches.
*Pulse Oximetry
SaO2: 100
Oxygen Mode of Delivery: Room air
Patient hypoxic: not evaluated
*Critical Care Note
Total Time (30-74mins, 75-104mins- exclusive of procedures): Not Applicable
ED Attending Note
-
Portions of this chart may have been created with voice recognition software.� Occasional wrong word or��sound alike� substitutions may have occurred due to the inherent limitations of voice recognition software.
Discharge Plan
Departure
Patient Disposition: Home (Routine Discharge)
Date of Disposition: 06/20/25
Time of Disposition: 16:02
Patient with high blood pressure during this ER visit?: No
Condition: Fair
Discharge Problem:
Soft tissue injury of right knee
Instructions: Knee Sprain ED
Prescriptions:
New
tramadol 50 mg tablet
50 mg PO BID PRN (Reason: Pain) Qty: 10 0RF
No Action
melatonin 5 MG tablet
10 mg PO HS
lubiprostone 24 MCG capsule
24 mcg PO BID 0RF
Ca-D3-mag va-kcys-xgw-lexie-bor [Calcium 600-D3 Plus (mag-zinc)] 1 EACH tablet
1 ea PO BID
Prolia 60 mg/mL Syringe
60 mg SC [id number] Qty: 0
gabapentin 600 mg Tablet
1,200 mg PO HS
venlafaxine 150 mg Capsule,Extended Release 24hr
150 mg PO DAILY
cevimeline 30 mg Capsule
1 cap PO TID
hydroxychloroquine 200 mg Tablet
200 mg PO DAILY
cyclosporine [Restasis] 0.05 % Dropperette
1 drp BOTH EYES BID
Dupixent Syringe 300 mg/2 mL Syringe
300 mg SC Q2W
bisacodyl 5 mg Tablet
10 mg PO HS
methenamine hippurate 1 GRAM tablet
1 g PO DAILY
famotidine 40 mg Tablet
40 mg PO BID
Xarelto 10 mg Tablet
10 mg PO DAILY
clonazepam 2 mg Tablet
2 mg PO HS
dexlansoprazole 60 mg Capsule,Biphase Delayed Releas
60 mg PO DAILY
levalbuterol tartrate [Xopenex HFA] 45 mcg/actuation Hfa Aerosol Inhaler
2 inh INHALATION Q6H PRN (Reason: asthma)
cholecalciferol (vitamin D3) [Vitamin D3] 25 mcg (1,000 unit) Capsule
25 mcg PO DAILY
gabapentin 600 mg Tablet
600 mg PO DAILY
oxycodone 5 mg tablet
5 mg PO Q4HPRN PRN (Reason: breakthrough/severe pain) Qty: 15 0RF
acetaminophen 325 mg tablet
650 mg PO Q4HPRN PRN (Reason: mild pain) Qty: 1 0RF
Referrals:
Andrew Davis MD [Active, Orthopedics] - Next open appointment
Activity Restrictions/Additional Instructions:
As we discussed, wear the knee immobilizer when up and around at all times until further instructed by your orthopedic doctor. Call the orthopedic doctors office today and make next available appointment. Use the crutches as needed with gradually
increasing weightbearing as comfort permits.
I sent a prescription to your pharmacy for tramadol
I saw nothing worrisome on your knee xray. If the official radiology read comes back differently, I will contact you.
Interventions
Interventions:
*General Assessment Last Done: 06/20/25 14:01
*Neglect/Abuse Screening Last Done: 06/20/25 14:01
[facility] Risk Assessment Tool Last Done: 06/20/25 15:49
Discharge Date and Time
Print Language: LIBERIAN
[2025-06-20 15:49] VITALS: BP 141/87
--- NOTE | 2025-06-20 16:52 | EDRN ---
Discharge: Patient to be discharged. When this RN was to perform dishcarge education and provide discharge paperwork, patient no longer at assigned bed. Patient deemed discharged but left without documentation
== END | disposition home or self-care (01) ==
LOC: EMR 13:47
PROVIDERS: EMERGENCY PHYSICIAN Emergency Medicine; FAMILY PHYSICIAN Family Medicine
DX: S89.91XA Unspecified injury of right lower leg, initial encounter (principal); X58.XXXA Exposure to other specified factors, initial encounter; Y92.003 Bedroom of unspecified non-institutional (private) residence as the place of occurrence of the external cause; I49.3 Ventricular premature depolarization; J45.909 Unspecified asthma, uncomplicated; K21.9 Gastro-esophageal reflux disease without esophagitis; D68.51 Activated protein C resistance; G47.30 Sleep apnea, unspecified; M35.00 Sjogren syndrome, unspecified; Z79.01 Long term (current) use of anticoagulants; Z82.49 Family history of ischemic heart disease and other diseases of the circulatory system; Z83.3 Family history of diabetes mellitus; Z86.711 Personal history of pulmonary embolism; Z86.718 Personal history of other venous thrombosis and embolism; Z87.01 Personal history of pneumonia (recurrent); Z90.49 Acquired absence of other specified parts of digestive tract; Z90.710 Acquired absence of both cervix and uterus; Z91.81 History of falling; Z96.653 Presence of artificial knee joint, bilateral
CPT/HCPCS: 99283; 73564